=== PATIENT | female | born 1950 | race Caucasian/White ===

== ENCOUNTER 2018-09-03 10:57 | Day surgery (SDC) | payer BC, MEDICARE ==
[2018-09-01 15:47] VITALS: BMI 28.0
[~2018-09-03 10:57] MED LIST: ALPRAZolam 0.25 MG TAB PO PRN; ALPRAZolam 0.5 MG TAB PO PRN; ASPIRIN 325 MG TAB PO STA; ATORVASTATIN 80 MG TAB PO STA; NITROGLYCERIN SL TABS 0.4 MG TAB SUBLINGUAL PRN; SODIUM CHLORIDE 0.9% 1,000 ML in EMPTY BAG 1 BAG IV ONE
[2018-09-03] MEDS ORDERED: SODIUM CHLORIDE 0.9% 1,000 ML IV ONE (11:12)
[2018-09-03 11:39] LABS: Glucose,Whole Blood 149 mg/dL (75-99)
[2018-09-03] MEDS ORDERED: ASPIRIN 81 MG ONE (11:42)
[2018-09-03] MEDS ORDERED: ALPRAZolam 0.25 MG TAB PO ONE (11:52)
[2018-09-03 11:55] VITALS: RESP 16
[2018-09-03] MEDS ORDERED: MIDAZOLAM (PF) 2 MG/2 ML VIAL IV ONE (13:07)
[2018-09-03] MEDS ORDERED: fentaNYL (PF) 50 MCG/ML 2 ML AMP IV ONE (13:07)
[2018-09-03] MEDS ORDERED: LIDOCAINE 1% INJ 10MG/ML (20 ML MDV) SQ ONE (13:09)
[2018-09-03] MEDS ORDERED: IOPAMIDOL-370 100ML BTL INJ ONE (13:18)
[2018-09-03] MEDS ORDERED: RX INFO: IV CONTRAST WAS GIVEN 1 EACH MISC MISCELLANE PRN (13:23)
[2018-09-03] MEDS ORDERED: SODIUM CHLORIDE 0.9% 1,000 ML IV SCH (13:30)
[2018-09-03] MEDS ORDERED: ATROPINE SULFATE 0.1 MG/ML 10ML SYRINGE ONE (13:33)
--- NOTE | 2018-09-03 14:33 | CC ---
CARDIAC CATHETERIZATION REPORT DATE OF SERVICE: 09/03/2018 PERFORMING PHYSICIAN: Jasson Nguyen MD, Twisting Operator. PROCEDURE PERFORMED: 1. Selective right and left coronary angiogram. 2. Left heart catheterization. INDICATION: This is a pleasant 67-year-old female patient with diabetes, hypertension, and dyslipidemia, was experiencing symptoms of shortness of breath with exertion, concerning for angina. She was seen and treated by her digital marketing intern, Dr. Mason, who ruled out any lung etiology for her symptoms. APPROACH: Right common femoral artery. COMPLICATION: None. LEVEL OF SEDATION: Moderate with sedation length of 13 minutes. PROCEDURE DESCRIPTION: After obtaining an informed consent, the patient was brought to the laborer wrecking and salvaging. The right common femoral artery was cannulated using micropuncture technique. Then I placed a 5-Czech sheath in the right common femoral artery. After that, I did selective right and left coronary angiogram using JR4 and JL4 catheter. Left heart catheterization was performed using 5-Czech pigtail catheter. The procedure was completed without complication. SELECTIVE CORONARY ANGIOGRAM: 1. The RCA is a medium caliber vessel. It is a nondominant vessel and appeared to be angiographically normal. 2. Left main is angiographically normal, it bifurcates into left circumflex and left anterior descending artery. 3. The circumflex is a large caliber vessel, it is a dominant vessel. The left circumflex appeared to be angiographically normal. 4. LAD, the LAD is a large caliber vessel, seems to be angiographically normal. HEMODYNAMICS: The left ventricular end-diastolic pressure was about 10 mmHg and without any gradient across the aortic valve. CONCLUSION: Normal coronary angiogram. POSTPROCEDURE MANAGEMENT: 1. Medical treatment. 2. Follow up with the patient. MMODL / IJN: [id number] /
[2018-09-03 17:38] VITALS: TEMP 98.2
[2018-09-03 18:53] VITALS: PULSE 70
[2018-09-03 19:20] VITALS: BP 110/72
[2018-09-03] MEDS ORDERED: IBUPROFEN 600 MG TAB PO STA (19:41)
== END 2018-09-03 20:59 | disposition home or self-care (01) ==
LOC: CATHCVL 10:57 → 1SOBS 13:20 → CATHCVL 20:59
PROVIDERS: ATTEND Internal Medicine Interventional Cardiology
DX: I20.0 Unstable angina (principal); R06.02 Shortness of breath; E78.5 Hyperlipidemia, unspecified; E11.9 Type 2 diabetes mellitus without complications; I10 Essential (primary) hypertension; Z72.0 Tobacco use; Z82.49 Family history of ischemic heart disease and other diseases of the circulatory system; Z79.890 Hormone replacement therapy; Z79.899 Other long term (current) drug therapy; Z79.52 Long term (current) use of systemic steroids; Z79.84 Long term (current) use of oral hypoglycemic drugs
CPT/HCPCS: 93458; C1894 ×2; C1769 ×2; J2001; J3010; Q9967; J2250

== ENCOUNTER 2018-12-12 11:57 | Observation (INO) | payer MEDICARE ==
[2018-12-12] MEDS ORDERED: SODIUM CHLORIDE 0.9% 1,000 ML IV STA (12:24)
[2018-12-12] MEDS ORDERED: PANTOPRAZOLE 40 MG/10 ML VIAL IVP STA (12:24)
[2018-12-12] MEDS ORDERED: ONDANSETRON 4 MG/2 ML VIAL IVP STA (12:24)
[2018-12-12] MEDS ORDERED: DICYCLOMINE 10 MG/ML 2 ML AMP IM STA (12:25)
--- NOTE | 2018-12-12 12:29 | ED ---
General Adult HPI - General Chief complaint: GI Bleed Stated complaint: GI bleed Time Seen by Provider: 12/12/18 12:06 Source: patient, family, RN notes reviewed Mode of arrival: ambulatory Limitations: no limitations - History of Present Illness Initial comments: Patient is a pleasant 68-year-old female presenting to the emergency Department with complaints of rectal bleeding. Onset of symptoms was 6 or 7 months ago. Patient did have a scope done around 6 months ago. Patient states scope was somewhat limited and has not had repeat scope since that time. Patient is continuing to have bloody stools up to 5-10 times daily, small amounts. Patient is starting to feel generally weak. Patient has had some nausea the past couple days with dry heaves and may have vomited one time without blood. Patient is having some mild discomfort of her lower abdomen and states that may have been from pushing with bowel movements. No known hemorrhoids - Related Data Home Medications Medication Instructions Recorded Confirmed Ferrous Sulfate [Iron] 65 mg PO DAILY 09/02/18 12/12/18 Levothyroxine Sodium [Levoxyl] 75 mcg PO DAILY 09/02/18 12/12/18 Metoprolol Tartrate 25 mg PO BID 09/02/18 12/12/18 Omeprazole 20 mg PO DAILY 09/02/18 12/12/18 Simvastatin 40 mg PO HS 09/02/18 12/12/18 Fluticasone Nasal [place] [Flonase 1 spray EA NOSTRIL DAILY 09/03/18 12/12/18 Nasal [place]] Glimepiride [Amaryl] 1 mg PO DAILY 12/12/18 12/12/18 Lisinopril [Zestril] 2.5 mg PO DAILY 12/12/18 12/12/18 Mesalamine [Lialda] 4.8 gm PO DAILY 12/12/18 12/12/18 Multivitamins, Thera [Multivitamin 1 tab PO DAILY 12/12/18 12/12/18 (formulary)] Allergies Allergy/AdvReac Type Severity Reaction Status Date / Time dextromethorphan Allergy Unknown Verified 12/12/18 13:10 [From NyQuil] doxylamine [From NyQuil] Allergy Unknown Verified 12/12/18 13:10 pseudoephedrine [From NyQuil] Allergy Unknown Verified 12/12/18 13:10 acetaminophen [From NyQuil] AdvReac See Comment Verified 12/12/18 13:10 Review of Systems ROS Statement: Those systems with pertinent positive or pertinent negative responses have been documented in the HPI. ROS Other: All systems not noted in ROS Statement are negative. Constitutional: Denies: fever Eyes: Denies: eye pain ENT: Denies: ear pain Respiratory: Denies: cough Cardiovascular: Denies: chest pain Endocrine: Reports: fatigue Gastrointestinal: Reports: abdominal pain, nausea, vomiting, hematochezia Genitourinary: Denies: dysuria Musculoskeletal: Denies: back pain Skin: Denies: rash Neurological: Denies: confusion Past Medical History Past Medical History: Diabetes Mellitus, Osteoarthritis (OA) Additional Past Medical History / Comment(s): SOB recently. History of Any Multi-Drug Resistant Organisms: None Reported Past Surgical History: Heart Catheterization, Hysterectomy Additional Past Surgical History / Comment(s): Right thyroidectomy. Past Anesthesia/Blood Transfusion Reactions: No Reported Reaction Smoking Status: Never smoker Past Alcohol Use History: Occasional Past Drug Use History: None Reported - Past Family History Mother Additional Family Medical History / Comment(s): Brain aneurysym. Father Family Medical History: Cancer Brother(s) Family Medical History: Cancer Sister(s) Family Medical History: Cancer General Exam Limitations: no limitations General appearance: alert, in no apparent distress Head exam: Present: atraumatic Eye exam: Present: normal appearance, PERRL ENT exam: Present: normal oropharynx Neck exam: Present: normal inspection Respiratory exam: Present: normal lung sounds bilaterally Cardiovascular Exam: Present: regular rate, normal rhythm GI/Abdominal exam: Present: soft, tenderness (Mild tenderness lower abdomen). Absent: distended, guarding, rebound, rigid Rectal exam: Present: normal inspection. Absent: bloody stool, hemorrhoids Extremities exam: Present: normal inspection Neurological exam: Present: alert. Absent: motor sensory deficit Psychiatric exam: Present: normal affect, normal mood Skin exam: Present: normal color Course Vital Signs 12/12/18 12/12/18 12/12/18 11:59 12:45 13:00 Temperature 97.9 F Pulse Rate 77 79 75 Respiratory 16 18 18 Rate Blood Pressure 84/52 88/61 107/53 O2 Sat by Pulse 96 96 96 Oximetry 12/12/18 13:30 Temperature Pulse Rate 70 Respiratory 18 Rate Blood Pressure 97/59 O2 Sat by Pulse 99 Oximetry Medical Decision Making - Medical Decision Making Patient reevaluated and resting comfortably in bed. Patient and family updated on results and plan. Case was discussed in detail with Dr. cornejo, covering for Dr. Parish, who admits for Dr. Caro and he will admit. GI will be placed on consult. - Lab Data Result diagrams: 12/12/18 12:39 12/12/18 12:29 Lab Results 12/12/18 12/12/18 12/12/18 Range/Units 12:29 12:29 12:39 WBC 10.6 (3.8-10.6) k/uL RBC 3.78 L (3.80-5.40) m/uL Hgb 11.0 L (11.4-16.0) gm/dL Hct 33.1 L (34.0-46.0) % MCV 87.6 (80.0-100.0) fL MCH 29.0 (25.0-35.0) pg MCHC 33.1 (31.0-37.0) g/dL RDW 13.6 (11.5-15.5) % Plt Count 467 H (150-450) k/uL Neutrophils % 70 % Lymphocytes % 16 % Monocytes % 6 % Eosinophils % 6 % Basophils % 0 % Neutrophils # 7.4 (1.3-7.7) k/uL Lymphocytes # 1.7 (1.0-4.8) k/uL Monocytes # 0.6 (0-1.0) k/uL Eosinophils # 0.6 (0-0.7) k/uL Basophils # 0.0 (0-0.2) k/uL PT 11.6 (9.0-12.0) sec INR 1.1 (<1.2) APTT 29.9 (22.0-30.0) sec Sodium 136 L (137-145) mmol/L Potassium 3.8 (3.5-5.1) mmol/L Chloride 102 (98-107) mmol/L Carbon Dioxide 21 L (22-30) mmol/L Anion Gap 13 mmol/L BUN 14 (7-17) mg/dL Creatinine 1.03 (0.52-1.04) mg/dL Est GFR (CKD-EPI)AfAm 64 (>60 ml/min/1.73 sqM) Est GFR (CKD-EPI)NonAf 56 (>60 ml/min/1.73 sqM) Glucose 118 H (74-99) mg/dL Calcium 9.2 (8.4-10.2) mg/dL Total Bilirubin 0.4 (0.2-1.3) mg/dL AST 19 (14-36) U/L ALT 20 (9-52) U/L Alkaline Phosphatase 48 (38-126) U/L Total Protein 7.2 (6.3-8.2) g/dL Albumin 3.6 (3.5-5.0) g/dL Stool Occult Blood (Negative) 12/12/18 Range/Units 12:39 WBC (3.8-10.6) k/uL RBC (3.80-5.40) m/uL Hgb (11.4-16.0) gm/dL Hct (34.0-46.0) % MCV (80.0-100.0) fL MCH (25.0-35.0) pg MCHC (31.0-37.0) g/dL RDW (11.5-15.5) % Plt Count (150-450) k/uL Neutrophils % % Lymphocytes % % Monocytes % % Eosinophils % % Basophils % % Neutrophils # (1.3-7.7) k/uL Lymphocytes # (1.0-4.8) k/uL Monocytes # (0-1.0) k/uL Eosinophils # (0-0.7) k/uL Basophils # (0-0.2) k/uL PT (9.0-12.0) sec INR (<1.2) APTT (22.0-30.0) sec Sodium (137-145) mmol/L Potassium (3.5-5.1) mmol/L Chloride (98-107) mmol/L Carbon Dioxide (22-30) mmol/L Anion Gap mmol/L BUN (7-17) mg/dL Creatinine (0.52-1.04) mg/dL Est GFR (CKD-EPI)AfAm (>60 ml/min/1.73 sqM) Est GFR (CKD-EPI)NonAf (>60 ml/min/1.73 sqM) Glucose (74-99) mg/dL Calcium (8.4-10.2) mg/dL Total Bilirubin (0.2-1.3) mg/dL AST (14-36) U/L ALT (9-52) U/L Alkaline Phosphatase (38-126) U/L Total Protein (6.3-8.2) g/dL Albumin (3.5-5.0) g/dL Stool Occult Blood Positive H (Negative) - Radiology Data Radiology results: image reviewed (Computed tomography scan of the abdomen and pelvis does show thickening of the colon.) Disposition Clinical Impression: Lower gastrointestinal hemorrhage Disposition: ADMITTED IP TO THIS HOSP Is patient prescribed a controlled substance at d/c from ED?: No Referrals: Yenifer Acosta MD [Primary Care Provider] - 1-2 days Decision Time: 14:26
[2018-12-12] MEDS ORDERED: SODIUM CHLORIDE 0.9% 500 ML 500 ML IV STA ×2 (12:48→14:25)
[2018-12-12 12:50] LABS: Basophils % (A) 0 %; Eosinophils # (A) 0.6 k/uL (0-0.7); Eosinophils % (A) 6 %; HCT 33.1 % (34.0-46.0); Lymphocytes # (A) 1.7 k/uL (1.0-4.8); Lymphocytes % (A) 16 %; MCHC 33.1 g/dL (31.0-37.0); MCV 87.6 fL (80.0-100.0); Mean Platelet Volume 6.8; Monocytes # (A) 0.6 k/uL (0-1.0); Monocytes % (A) 6 %; Neutrophils # (A) 7.4 k/uL (1.3-7.7); Neutrophils % (A) 70 %; Platelet Count 467 k/uL (150-450); RBC 3.78 m/uL (3.80-5.40); RDW 13.6 % (11.5-15.5); WBC 10.6 k/uL (3.8-10.6)
[2018-12-12 13:00] LABS: Albumin 3.6 g/dL (3.5-5.0); Calcium 9.2 mg/dL (8.4-10.2); INR 1.1 (<1.2); Partial Thromboplastin Time 29.9 sec (22.0-30.0); Potassium 3.8 mmol/L (3.5-5.1); Prothrombin Time 11.6 sec (9.0-12.0); Total Bilirubin 0.4 mg/dL (0.2-1.3); Total Protein 7.2 g/dL (6.3-8.2)
--- NOTE | 2018-12-12 14:03 | CT ---
EXAMINATION TYPE: CT abdomen pelvis w con DATE OF EXAM: 12/12/2018 REFERENCE: None. HISTORY: pain HISTORY: GI Bleed CT DLP: 642.1 mGy Automated exposure control for dose reduction was used. TECHNIQUE: Helical acquisition through the abdomen and pelvis was obtained following the oral ingesti on of without Oral Contrast and following intravenous administration of 100 ml mL of Isovue 300. The data was reformatted in axial, coronal and sagittal projections. FINDINGS: There is mild atelectatic change at the lung bases. There is no pleural or pericardial flu id. The heart is not enlarged. Within the abdomen, there is a partial eventration of the right hemidiaphragm. There is decreased att enuation of the liver, likely reflecting fatty infiltration. The gallbladder is been removed. The spl een is unremarkable. Both adrenal glands are normal. Both kidneys demonstrate function and appear morphologically normal. The pancreas is unremarkable. There is mild atheromatous calcification of the visualized arterial tree. There is no significant ret roperitoneal, iliac or inguinal adenopathy. The bladder wall appears mildly thickened but the bladder is not distended. The uterus and ovaries ar e not visualized. There is mucosal thickening involving the sigmoid colon: As well as the descending, transverse and as cending colons. The appendix is not visualized with certainty. Small bowel loops are normal. No free air and no free fluid is seen. There is a degenerative grade 1 spondylolisthesis of L4 on L5. There is disc space loss and hypertrop hic spondylosis within the spine as well as facet arthropathy. IMPRESSION: 1. DIFFUSE THICKENING OF THE COLON SUGGESTIVE OF PANCREATITIS. PLEASE CORRELATE CLINICALLY. 2. PROBABLE FATTY INFILTRATION OF THE LIVER. 3. BLADDER WALL THICKENING OF QUESTIONABLE SIGNIFICANCE IN LIGHT OF LACK OF DISTENTION. 4. DEGENERATIVE CHANGES WITHIN THE SPINE.
[2018-12-12] MEDS ORDERED: NALOXONE 0.4 MG/ML 1 ML VIAL IV PRN (14:26)
[2018-12-12] MEDS: SODIUM CHLORIDE 0.9% 1,000 ML IV SCH ×2 (14:50→20:25)
[2018-12-12 16:23] VITALS: BMI 23.9
[2018-12-12 16:37] LABS: Glucose,Whole Blood 65 mg/dL (75-99)
[2018-12-12] MEDS ORDERED: MORPHINE SULFATE 2 MG/ML SYRINGE IV PRN (16:59)
[2018-12-12] MEDS ORDERED: ACETAMINOPHEN TAB 325 MG TAB PO PRN (16:59)
[2018-12-12] MEDS ORDERED: MELATONIN 3 MG TABLET PO PRN (16:59)
--- NOTE | 2018-12-12 17:06 | P.HPIM ---
History of Present Illness H&P Date: 12/12/18 Chief Complaint: bright red blood per rectum Patient is a 68-year-old female past medical history diabetes, hypertension, dyslipidemia, and hypothyroidism secondary to thyroidectomy for hyperthyroidism who presented to the emergency department for bright red blood p er rectum. Patient had initially stated that she is happy as since April 2018. She is seen Dr. Santana and states he attempted colonoscopy but found a blockage and is unable to completed in May. She initially felt that she had not received a diagnosis from him. However she is seen him in the office on several other visits. On review of her medications she is on mesalamine which she states Dr. Santana started. I asked her she had been diagnosed with ulcerative colitis or Crohn's disease. She states he has mentioned those but felt as though she had not been given a formal diagnosis. In the ER today she underwent an extensive evaluation. CT of abdomen and pelvis demonstrated dif fuse colonic wall thickening. She was found have a positive fecal occult blood. Hemoglobin was slightly low at 11. She received a dose of Bentyl, Zofran, and Protonix in the emergency department. There is concern for GI bleed and she was subsequently admitted. However, I suspect exacerbation of inflammatory bowel disease. Patient reports that since April of this year she has been having bright red blood per rectum. She states that she is going to the bathroom more than 10 times per day and up to 25 times. She sometimes is having tenesmus. She reports that sometimes she goes to the bathroom and it is only as small amount of blood. She is not having any dark tarry looking stools. She reports copious amounts of mucus in her stools. She also reports belly pain that is sharp and stabbing in nature. She describes this is chronic and it is across her right and left lower quadrant without radiation. She reports that she has been having some vomiting and dry heaves. She states that she has been vomiting approximately once weekly and having dry heaves twice weekly. She reports decreased appetite. Over the last 8 months she has lost approximately 34 pounds she was 165 and is now down to 131. She has not noted any food triggers. She reports generalized weakness and fatigue. She also reports that she's been following with . She denies any bloating. She does report a history of colon polyps. She denies any family history of Crohn's disease or ulcerative colitis. She denies any fevers, chills, she does have a chronic dry cough, no dysuria. Review of Systems Pertinent positives and negatives as discussed in HPI, a complete review of systems was performed and all other systems are negative. Past Medical History Past Medical History: Diabetes Mellitus, Osteoarthritis (OA) Additional Past Medical History / Comment(s): Hypertension, dyslipidemia, hypothyroidism, colon polyps History of Any Multi-Drug Resistant Organisms: None Reported Past Surgical History: Heart Catheterization, Hysterectomy Additional Past Surgical History / Comment(s): Right thyroidectomy. Colonoscopy Past Anesthesia/Blood Transfusion Reactions: No Reported Reaction Past Psychological History: No Psychological Hx Reported Smoking Status: Former smoker Past Alcohol Use History: Occasional Additional Past Alcohol Use History / Comment(s): Quit smoking 20 yrs ago. Past Drug Use History: None Reported Additional History: Lives alone, retired, is supposed to use a cane but does not - Past Family History Mother Additional Family Medical History / Comment(s): Brain aneurysym. Denies any family history of colon cancer, Crohn's disease, ulcerative colitis. Father Family Medical History: Cancer Brother(s) Family Medical History: Cancer Sister(s) Family Medical History: Cancer Medications and Allergies Home Medications Medication Instructions Recorded Confirmed Type Ferrous Sulfate [Iron] 65 mg PO DAILY 09/02/18 12/12/18 History Levothyroxine Sodium [Levoxyl] 75 mcg PO DAILY 09/02/18 12/12/18 History Metoprolol Tartrate 25 mg PO BID 09/02/18 12/12/18 History Omeprazole 20 mg PO DAILY 09/02/18 12/12/18 History Simvastatin 40 mg PO HS 09/02/18 12/12/18 History Fluticasone Nasal [place] [Flonase 1 spray EA NOSTRIL DAILY 09/03/18 12/12/18 History Nasal [place]] Glimepiride [Amaryl] 1 mg PO DAILY 12/12/18 12/12/18 History Lisinopril [Zestril] 2.5 mg PO DAILY 12/12/18 12/12/18 History Mesalamine [Lialda] 4.8 gm PO DAILY 12/12/18 12/12/18 History Multivitamins, Thera [Multivitamin 1 tab PO DAILY 12/12/18 12/12/18 History (formulary)] Allergies Allergy/AdvReac Type Severity Reaction Status Date / Time dextromethorphan Allergy Unknown Verified 12/12/18 13:10 [From NyQuil] doxylamine [From NyQuil] Allergy Unknown Verified 12/12/18 13:10 pseudoephedrine [From NyQuil] Allergy Unknown Verified 12/12/18 13:10 Physical Exam Osteopathic Statement: *. No significant issues noted on an osteopathic structural exam other than those noted in the History and Physical/Consult. Vitals: Vital Signs Temp Pulse Pulse Resp BP BP Pulse Ox 12/12/18 16:00 98.2 F 77 16 100/67 98 12/12/18 15:15 97.9 F 76 18 104/65 99 12/12/18 14:54 79 18 91/54 98 12/12/18 14:39 98.2 F 77 16 100/67 99 12/12/18 13:30 70 18 97/59 99 12/12/18 13:00 75 18 107/53 96 12/12/18 12:45 79 18 88/61 96 12/12/18 11:59 97.9 F 77 16 84/52 96 Intake and Output 12/12/18 12/12/18 12/12/18 06:59 14:59 22:59 Other: Weight 59.421 kg Results CBC & Chem 7: 12/12/18 12:39 12/12/18 12:29 Labs: Abnormal Lab Results - Last 24 Hours (Table) 12/12/18 12/12/18 12/12/18 Range/Units 12:29 12:39 12:39 RBC 3.78 L (3.80-5.40) m/uL Hgb 11.0 L (11.4-16.0) gm/dL Hct 33.1 L (34.0-46.0) % Plt Count 467 H (150-450) k/uL Sodium 136 L (137-145) mmol/L Carbon Dioxide 21 L (22-30) mmol/L Glucose 118 H (74-99) mg/dL Stool Occult Blood Positive H (Negative) Comments: Laboratory Tests 12/12/18 12:39 Stool Occult Blood Positive H CT scan - abdomen: report reviewed CT scan - chest: report reviewed Thrombosis Risk Factor Assmnt - DVT/VTE Prophylaxis DVT/VTE Prophylaxis: Low risk, early ambulation encouraged Assessment and Plan Assessment: Bright Red Blood per rectum in association with abdominal pain and tenesmus and diffuse colonic thickening - highly suspecious for inflammatory bowel disease flair, patient denies history but is on mesalamine - will start solumedrol and rocephin/flagyl - consult GI - IVF - Clear liquid diet - pain control, antiemetics Acute blood loss anemia - trend CBC once tonight and in AM - check iron, B12, and folic acid levels DM 2 with hypoglycemia - hold glimepiride - SSI - follow BS - check A1C HTN, hypotensive on arrival -decrease metoprolol to 12.5 mg twice daily and add parameters, continue with lisinopril -Follow blood pressures Dyslipidemia -Statin therapy Hypothyroidism -Levothyroxine The patient is admitted with an anticipated greater than 2 midnight stay for evaluation of bright red blood per rectum. Surrogate decision-maker: Daughter- luis CODE STATUS:full, does not want prolonged mechanical ventilation if no hope of recovery DVT prophylaxis: SCDs Discussed with: Patient, nursing Anticipated discharge date: 3-[address]: home A total of 70 minutes was spent on the care of this complex patient more than 50% of the time was spent in counseling and care coordination.
[2018-12-12] MEDS: INSULIN ASPART (NovoLOG) 100 UNIT/ML VIAL SQ SCH ×2 (17:26→20:25)
[2018-12-12] MEDS: methylPREDNISolone SOD SUCCI 125 MG/2 ML VIAL IV SCH (17:33)
[2018-12-12] MEDS: HYDROcodone/APAP 5-325MG 1 EACH TAB PO PRN (18:53)
[2018-12-12 20:13] LABS: Glucose,Whole Blood 206 mg/dL (75-99)
[2018-12-12] MEDS: ATORVASTATIN 20 MG TAB PO SCH (20:25)
[2018-12-12] MEDS: metroNIDAZOLE 500 MG TAB PO SCH (20:25)
[2018-12-12] MEDS: METOPROLOL TARTRATE 12.5 MG TAB PO SCH (20:25)
[2018-12-12 21:07] LABS: Basophils % (A) 0 %; Eosinophils # (A) 0.1 k/uL (0-0.7); Eosinophils % (A) 2 %; HCT 30.8 % (34.0-46.0); HGB 9.9 gm/dL (11.4-16.0); Lymphocytes # (A) 0.7 k/uL (1.0-4.8); Lymphocytes % (A) 8 %; MCH 29.5 pg (25.0-35.0); MCHC 32.1 g/dL (31.0-37.0); MCV 91.8 fL (80.0-100.0); Mean Platelet Volume 7.7; Monocytes # (A) 0.2 k/uL (0-1.0); Monocytes % (A) 2 %; Neutrophils % (A) 87 %; Platelet Count 363 k/uL (150-450); RBC 3.36 m/uL (3.80-5.40); RDW 13.7 % (11.5-15.5)
[2018-12-13] MEDS: methylPREDNISolone SOD SUCCI 125 MG/2 ML VIAL IV SCH ×2 (00:15→06:02)
[2018-12-13] MEDS: LEVOTHYROXINE 75 MCG TAB PO SCH (06:01)
[2018-12-13] MEDS: HYDROcodone/APAP 5-325MG 1 EACH TAB PO PRN ×2 (06:08→19:11)
[2018-12-13] MEDS: SODIUM CHLORIDE 0.9% 1,000 ML IV SCH ×3 (06:09→21:13)
[2018-12-13 07:08] LABS: Glucose,Whole Blood 173 mg/dL (75-99)
[2018-12-13 07:12] LABS: Basophils % (A) 0 %; Eosinophils % (A) 0 %; Hypochromasia Slight; Lymphocytes # (A) 0.7 k/uL (1.0-4.8); Lymphocytes % (A) 12 %; MCH 28.5 pg (25.0-35.0); MCHC 32.2 g/dL (31.0-37.0); MCV 88.6 fL (80.0-100.0); Mean Platelet Volume 6.8; Monocytes # (A) 0.1 k/uL (0-1.0); Monocytes % (A) 1 %; Neutrophils # (A) 4.9 k/uL (1.3-7.7); Neutrophils % (A) 86 %; Platelet Count 341 k/uL (150-450); WBC 5.6 k/uL (3.8-10.6)
[2018-12-13 07:24] LABS: African American GFR (CKD) >90 (>60 ml/min/1.73 sqM); Anion Gap 10 mmol/L; Blood Urea Nitrogen 7 mg/dL (7-17); Calcium 8.6 mg/dL (8.4-10.2); Carbon Dioxide 22 mmol/L (22-30); Chloride 107 mmol/L (98-107); Glucose 184 mg/dL (74-99); Potassium 4.3 mmol/L (3.5-5.1); Sodium 139 mmol/L (137-145)
[2018-12-13] MEDS: INSULIN ASPART (NovoLOG) 100 UNIT/ML VIAL SQ SCH ×4 (07:27→21:08)
[2018-12-13] MEDS: PANTOPRAZOLE 40 MG/10 ML VIAL IV SCH (07:28)
[2018-12-13] MEDS: BALSALAZIDE DISODIUM 750 MG CAPSULE PO SCH ×3 (07:29→21:07)
[2018-12-13] MEDS: LISINOPRIL 2.5 MG TAB PO SCH (07:29)
[2018-12-13] MEDS: FERROUS SULFATE 325 MG TAB PO SCH (07:29)
[2018-12-13] MEDS: METOPROLOL TARTRATE 12.5 MG TAB PO SCH ×2 (07:29→21:08)
[2018-12-13] MEDS: metroNIDAZOLE 500 MG TAB PO SCH ×2 (07:29→21:08)
[2018-12-13] MEDS ORDERED: NON-FORMULARY DRUG (Omeprazole [Omeprazole] 20 MG) PO SCH (09:00)
--- NOTE | 2018-12-13 11:56 | CONS ---
CONSULTATION DATE OF DICTATION: December 13, 2018. REQUESTING PHYSICIAN: Dr. Bud Acosta. REASON FOR CONSULTATION: Exacerbation of ulcerative colitis. The patient is a 68-year-old pleasant white female who was diagnosed with a left sided ulcerative colitis in May of this year by Dr. Santana. The patient presented with rectal bleeding at that time. Subsequently, she was treated with a tapering dose of prednisone and follow up with Dr. Santana in the office and was doing well. She was also maintained on oral mesalamine and 4 tablets daily. For the last 2 weeks, she started having bloody diarrhea, bowel movements anywhere from 10-15 a day associated with lower abdominal cramping pain. Symptoms progressively got worse. Came into the emergency room yesterday and subsequently admitted to the hospital for further evaluation. She was started on Solu-Medrol 60 mg q.6 hours. This morning, feeling much better. She had 2 bowel movement this morning with no blood. She reports no nausea, vomiting. No fever, chills, or night sweats. Colonoscopy done at [facility] by Dr. Santana in May of 2018 showed left- sided ulcerative colitis. The colonoscopy could not be completed because of extremely poor prep in the transverse colon. However, there was no evidence of colitis involving the transverse colon at that time. PAST MEDICAL HISTORY: Significant for ulcerative colitis diagnosed May of 2018, history of hypertension, hyperlipidemia, hypothyroidism, diabetes mellitus, degenerative joint disease. PAST SURGICAL HISTORY: Thyroidectomy, hysterectomy, recent colonoscopy as mentioned above. MEDICATIONS: At home include: , Zestril, Amylase, Flonase, simvastatin, omeprazole, metoprolol, iron, levothyroxine, multivitamin. ALLERGIES: NYQUIL. SOCIAL HISTORY: No smoking. No alcohol use. FAMILY HISTORY: Mother has brain aneurysm. Father had some kind of cancer. REVIEW OF SYSTEMS: Cardiopulmonary: No chest pain, shortness of breath. Genitourinary: No dysuria or hematuria. Musculoskeletal unremarkable. Skin unremarkable. Endocrine unremarkable. Psychiatric unremarkable. Neurology unremarkable. ENT/vision unremarkable. Constitutional: No recent weight loss. No fever, chills, night sweats. PHYSICAL EXAMINATION: Appears comfortable in no apparent distress. Vital signs stable. Blood pressure 101/67, pulse rate 77, temperature 98.2. HEENT examination unremarkable. Conjunctivae pink. Sclerae anicteric. Oral cavity no lesions. NECK: No JVD or lymph node enlargement. CHEST: Clear to auscultation. HEART: Regular rate and rhythm. ABDOMEN: Soft. Bowel sounds are positive. No organomegaly. Mild tenderness in the lower abdomen. EXTREMITIES: No pedal edema. SKIN no rashes. NEUROLOGIC: Alert and oriented x3. No focal deficits. LABS: WBC 5.6, hemoglobin 10, platelets normal. Basic metabolic panel is within normal limits. Stool occult blood was positive. Serum ALT/AST, T-bilirubin and alkaline phosphatase are normal. IMPRESSION: Exacerbation of ulcerative colitis that was diagnosed in May of [address] Santana. The patient maintained on the 4 tablets daily on an outpatient basis. She finished a course of prednisone tapering doses from August to September of this year and did well. Admitted to hospital with worsening diarrhea with blood and mucus in the stools for the last 2 weeks duration suggestive of exacerbation of ulcerative colitis. Presently on IV Solu-Medrol 60 mg q.8 hours and symptoms are significantly improved. RECOMMENDATIONS: 1. Change IV Solu-Medrol to 20 mg q.8 hours and if she is better, it can be switched to oral prednisone 40 mg daily that needs to be tapered by 5 mg every week on outpatient basis. 2. Continue with 4 tablets daily, in the hospital has been substituted with . 3. Advance diet as tolerated. 4. If symptoms improve, she can be discharged home tomorrow with outpatient followup with Dr. Santana in 2 weeks. Thank you for this consultation. MMODL / IJN: [id number] /
[2018-12-13 12:03] LABS: Glucose,Whole Blood 222 mg/dL (75-99)
[2018-12-13] MEDS: MULTIVITAMINS, THERA 1 EACH TAB PO SCH (12:05)
[2018-12-13] MEDS: FLUTICASONE 50MCG/SPRAY NASAL 16GM EA NOSTRIL SCH (12:05)
--- NOTE | 2018-12-13 15:41 | P.PN ---
Subjective Progress Note Date: 12/13/18 Patient reports that she is feeling better her diarrhea is getting better and there is no further bleeding per rectum. She stated that her family reminded her that she was told that she had ulcerative colitis after the colonoscopy done by her marine engineering teacher. Patient stated that her belly pain is slightly better. Patient is yet to be seen by the gastroenterology team. Nurses reported no current issues with the patient. Objective - Vital Signs Vital signs: Vital Signs Temp 97.7 F 12/13/18 15:00 Pulse 72 12/13/18 15:00 Resp 15 12/13/18 15:00 BP 90/53 12/13/18 15:00 Pulse Ox 99 12/13/18 15:00 Intake & Output 12/12/18 12/13/18 12/13/18 18:59 06:59 18:59 Intake Total 358 500 480 Balance 358 500 480 Weight 59.421 kg 59.421 kg Intake: Oral 358 500 480 Other: # Voids 2 1 # Bowel Movements 2 2 - Constitutional General appearance: Present: cooperative, no acute distress - EENT Eyes: Present: EOMI, normal appearance ENT: Present: hearing grossly normal, NA/AT - Neck Neck: Present: normal ROM. Absent: lymphadenopathy, rigidity - Respiratory Respiratory: bilateral: CTA, negative: rales, rhonchi, wheezing - Cardiovascular Rhythm: regular Heart sounds: normal: S1, S2 Abnormal Heart Sounds: Absent: systolic murmur, diastolic murmur, rub, S3 Gallop, S4 Gallop, click - Gastrointestinal General gastrointestinal: Present: normal bowel sounds, soft. Absent: distended, rigid, tenderness - Neurologic Neurologic: Present: CNII-XII intact. Absent: focal deficits - Psychiatric Psychiatric: Present: A&O x's 3, appropriate affect, intact judgment & insight - Allied health notes Allied health notes reviewed: nursing - Labs CBC & Chem 7: 12/13/18 06:45 12/13/18 06:45 Labs: Abnormal Lab Results - Last 24 Hours (Table) 12/12/18 12/12/18 12/12/18 Range/Units 16:33 20:10 20:18 RBC 3.36 L (3.80-5.40) m/uL Hgb 9.9 L (11.4-16.0) gm/dL Hct 30.8 L (34.0-46.0) % Lymphocytes # 0.7 L (1.0-4.8) k/uL Creatinine (0.52-1.04) mg/dL Glucose (74-99) mg/dL POC Glucose (mg/dL) 65 L 206 H (75-99) mg/dL 12/13/18 12/13/18 12/13/18 Range/Units 06:45 06:45 07:06 RBC 3.50 L (3.80-5.40) m/uL Hgb 10.0 L (11.4-16.0) gm/dL Hct 31.0 L (34.0-46.0) % Lymphocytes # 0.7 L (1.0-4.8) k/uL Creatinine 0.51 L (0.52-1.04) mg/dL Glucose 184 H (74-99) mg/dL POC Glucose (mg/dL) 173 H (75-99) mg/dL 12/13/18 Range/Units 12:00 RBC (3.80-5.40) m/uL Hgb (11.4-16.0) gm/dL Hct (34.0-46.0) % Lymphocytes # (1.0-4.8) k/uL Creatinine (0.52-1.04) mg/dL Glucose (74-99) mg/dL POC Glucose (mg/dL) 222 H (75-99) mg/dL Assessment and Plan (1) Lower gastrointestinal hemorrhage Current Visit: Yes Status: Acute Priority: High Code(s): K92.2 - GASTROINTESTINAL HEMORRHAGE, UNSPECIFIED SNOMED Code(s): 95834268 (2) Diabetes mellitus type 2, controlled Current Visit: Yes Status: Chronic Priority: High Code(s): E11.9 - TYPE 2 DIABETES MELLITUS WITHOUT COMPLICATIONS SNOMED Code(s): 44034503 (3) Hypertension, essential, benign Current Visit: Yes Status: Chronic Priority: High Code(s): I10 - ESSENTIAL (PRIMARY) HYPERTENSION SNOMED Code(s): 3224952 (4) Dyslipidemia Current Visit: Yes Status: Chronic Priority: Medium Code(s): E78.5 - HYPERLIPIDEMIA, UNSPECIFIED SNOMED Code(s): 131468225 (5) Hypothyroidism (acquired) Current Visit: Yes Status: Chronic Priority: Medium Code(s): E03.9 - HYPOTHYROIDISM, UNSPECIFIED SNOMED Code(s): 362798030 (6) Ulcerative colitis Current Visit: Yes Status: Acute Priority: High Code(s): K51.90 - ULCERATIVE COLITIS, UNSPECIFIED, WITHOUT COMPLICATIONS SNOMED Code(s): 61349685 Plan: Patient's current medication will be continued including [place] [employer]. She is slowly improving her diarrhea is improving her blood per rectum is almost gone. Hemoglobin will be checked at 6 PM and in the morning also. Gastroenterology was consulted and their input is awaited. Patient home medications for hypertension and hypothyroidism will be continued as it is along with sliding scale coverage for her diabetes. She will be on consistent carbohydrate diet. If patient remains stable in next 24-48 hours she will be discharged home. Time with Patient: Less than 30
[2018-12-13 16:46] LABS: Glucose,Whole Blood 201 mg/dL (75-99)
[2018-12-13] MEDS: methylPREDNISolone SOD SUCCI 40 MG/ML 1 ML VIAL IV SCH ×2 (17:34→23:22)
[2018-12-13 18:51] LABS: HCT 30.3 % (34.0-46.0); HGB 9.7 gm/dL (11.4-16.0); MCH 29.1 pg (25.0-35.0); MCV 91.1 fL (80.0-100.0); Mean Platelet Volume 7.3; Platelet Count 395 k/uL (150-450); RBC 3.33 m/uL (3.80-5.40); RDW 13.9 % (11.5-15.5); WBC 8.4 k/uL (3.8-10.6)
[2018-12-13 21:03] LABS: Glucose,Whole Blood 342 mg/dL (75-99)
[2018-12-13] MEDS: ATORVASTATIN 20 MG TAB PO SCH (21:08)
[2018-12-14] MEDS: HYDROcodone/APAP 5-325MG 1 EACH TAB PO PRN (05:53)
[2018-12-14] MEDS: LEVOTHYROXINE 75 MCG TAB PO SCH (05:53)
[2018-12-14] MEDS: SODIUM CHLORIDE 0.9% 1,000 ML IV SCH ×2 (06:03→14:41)
[2018-12-14 07:05] LABS: HCT 27.1 % (34.0-46.0); HGB 8.9 gm/dL (11.4-16.0); MCH 29.7 pg (25.0-35.0); MCV 89.9 fL (80.0-100.0); Mean Platelet Volume 7.1; Platelet Count 367 k/uL (150-450); RBC 3.01 m/uL (3.80-5.40); RDW 13.6 % (11.5-15.5); WBC 6.2 k/uL (3.8-10.6)
[2018-12-14] MEDS: INSULIN ASPART (NovoLOG) 100 UNIT/ML VIAL SQ SCH ×2 (07:24→12:19)
[2018-12-14] MEDS: METOPROLOL TARTRATE 12.5 MG TAB PO SCH (07:25)
[2018-12-14] MEDS: FLUTICASONE 50MCG/SPRAY NASAL 16GM EA NOSTRIL SCH (07:25)
[2018-12-14] MEDS: LISINOPRIL 2.5 MG TAB PO SCH (07:25)
[2018-12-14] MEDS: PANTOPRAZOLE 40 MG/10 ML VIAL IV SCH (07:25)
[2018-12-14] MEDS: BALSALAZIDE DISODIUM 750 MG CAPSULE PO SCH ×2 (07:25→16:03)
[2018-12-14] MEDS: metroNIDAZOLE 500 MG TAB PO SCH (07:25)
[2018-12-14] MEDS: methylPREDNISolone SOD SUCCI 40 MG/ML 1 ML VIAL IV SCH ×2 (07:25→16:03)
[2018-12-14] MEDS: FERROUS SULFATE 325 MG TAB PO SCH (07:25)
[2018-12-14] MEDS: MULTIVITAMINS, THERA 1 EACH TAB PO SCH (07:25)
[2018-12-14 07:29] LABS: Glucose,Whole Blood 195 mg/dL (75-99)
[2018-12-14 07:42] VITALS: RESP 16
--- NOTE | 2018-12-14 09:24 | P.PN ---
Subjective Progress Note Date: 12/14/18 Principal diagnosis: Exacerbation of ulcerative colitis Hemoglobin 8.9. 3 incontinent nonbloody bowel movements to the night. Abdominal pain improving. Afebrile. Requesting discharge. Objective - Vital Signs Vital signs: Vital Signs Temp 98.0 F 12/14/18 07:41 Pulse 63 12/14/18 07:41 Resp 16 12/14/18 07:41 BP 134/86 12/14/18 07:41 Pulse Ox 98 12/14/18 07:41 Intake & Output 12/13/18 12/14/18 12/14/18 18:59 06:59 18:59 Intake Total 480 1550 Output Total 2 Balance 480 1548 Weight 59.421 kg Intake: Intake, IV Titration 1250 Amount Sodium Chloride 0.9% 1, 1250 000 ml @ 125 mls/hr IV . Q8H AKANKSHA Rx#:[id number] Oral 480 300 Output: Urine/Stool Mix 2 Other: # Voids 1 3 # Bowel Movements 2 3 - Exam General appearance: The patient is alert, oriented, in no acute distress. HET: Head is normocephalic and atraumatic. Pupils are equal and reactive. Orop harynx is clear without lesions. Neck: Supple without lymphadenopathy. Trachea midline. Heart: S1 S2. Regular rate and rhythm. Lungs: No crackles or wheezes are heard. Abdomen: Soft, minimal tenderness to the left lower abdomen, nondistended with bowel sounds. No peritoneal signs. No palpable organomegaly or masses. Extremities: Normal skin color and turgor. No cyanosis, rash, ulceration, cl ubbing, or edema. Radial and pedal pulses are 2/4 bilaterally. Neurological: No focal deficits. Strength and sensation are grossly intact. - Labs CBC & Chem 7: 12/14/18 06:41 12/13/18 06:45 Labs: Abnormal Lab Results - Last 24 Hours (Table) 12/13/18 12/13/18 12/13/18 Range/Units 12:00 16:44 18:39 RBC 3.33 L (3.80-5.40) m/uL Hgb 9.7 L (11.4-16.0) gm/dL Hct 30.3 L (34.0-46.0) % POC Glucose (mg/dL) 222 H 201 H (75-99) mg/dL 12/13/18 12/14/18 12/14/18 Range/Units 20:59 06:41 07:18 RBC 3.01 L (3.80-5.40) m/uL Hgb 8.9 L (11.4-16.0) gm/dL Hct 27.1 L (34.0-46.0) % POC Glucose (mg/dL) 342 H 195 H (75-99) mg/dL Assessment and Plan (1) Exacerbation of ulcerative colitis Current Visit: Yes Status: Acute Code(s): K51.90 - ULCERATIVE COLITIS, UNSPECIFIED, WITHOUT COMPLICATIONS SNOMED Code(s): 451284409 Plan: 1. Agreeable for discharge. Diet as tolerated. Start tomorrow Prednisone 40 mg daily taper down every 7 days by 5 mg. Continue balsalazide 750 mg 3 tablets 3 times a day until discharge continue Lialda 4.8 g daily at home. Outpatient colonoscopy scheduled at [facility] 12/22/2018. Return to office in 3-4 weeks for reevaluation with Dr. Santana. Assessment and plan a care discussed with Dr. Galvez
[2018-12-14 09:56] LABS: Iron Saturation 12.09 (12.00-45.00)
[2018-12-14 11:39] LABS: Glucose,Whole Blood 321 mg/dL (75-99)
[2018-12-14 15:26] VITALS: BP 125/78; PULSE 89; TEMP 97.9
--- NOTE | 2018-12-14 17:21 | P.DS ---
Providers Date of admission: 12/12/18 14:26 Expected date of discharge: 12/14/18 Attending physician: Mirian Schmitt MD Consults: 12/12/18 14:27 Consult Physician Urgent Consulting Provider: Jessica Galvez Consult Reason/Comments: gi hemorrhage Do you want consulting provider notified?: Yes Primary care physician: Yenifer Acosta - Discharge Diagnosis(es) (1) Lower gastrointestinal hemorrhage Current Visit: Yes Status: Acute Priority: High (2) Diabetes mellitus type 2, controlled Current Visit: Yes Status: Chronic Priority: High (3) Hypertension, essential, benign Current Visit: Yes Status: Chronic Priority: High (4) Dyslipidemia Current Visit: Yes Status: Chronic Priority: Medium (5) Hypothyroidism (acquired) Current Visit: Yes Status: Chronic Priority: Medium (6) Ulcerative colitis Current Visit: Yes Status: Acute Priority: High Hospital Course: Patient is a 68-year-old female past medical history diabetes, hypertension, dyslipidemia, and hypothyroidism secondary to thyroidectomy for hyperthyroidism who presented to the emergency department for bright red blood per rectum. Patient had initially LGIB in April 2018. She was seen Dr. Santana and states he attempted colonoscopy but found a blockage and is unable to completed in May. She initially felt that she had not received a diagnosis from him but later reported that she was told that she had ulcerative colitis. On review of her medications she is on mesalamine which she states Dr. Santana started. In the ER today she underwent an extensive evaluation. CT of abdomen and pelvis demonstrated diffuse colonic wall thickening. She was found have a positive fecal occult blood. Hemoglobin was slightly low at 11. She received a dose of Bentyl, Zofran, and Protonix in the emergency department. Th ere is concern for GI bleed and she was subsequently admitted. However exacerbation of inflammatory bowel disease was suspected. Patient denied chest pain, palpitation, fever, chills, worsening abdominal pain and denies rest of the review system. Objective the patient vitals are stable and she is afebrile, lungs are clear to auscultation, heart rhythm regular, soft & bowel sounds positive, nontender and non-distended abdomen. Patient was referred to log grader who recommended that acute treatment of flareup and patient improved with the current management. She did not had any further hematochezia and her loose stool improved. Patient was okayed by GI team Sheela Wray PRODUCE LABORER for discharge with very slow tapering of oral prednisone and prescription were written by her. Patient is clinically doing much better her hemoglobin is stable and she will be discharged home today. Pertinent Studies: Patient has CT abdomen and pelvis done in the emergency room which showed diffuse thickening of the colon suggestive of colitis, fatty infiltration of liver, bladder wall thickening of questionable significance and degenerative changes within the spine. Procedures: None. Patient Condition at Discharge: Fair Plan - Discharge Summary Discharge Rx Participant: No New Discharge Prescriptions: New predniSONE 0 mg PO DIRECTED #123 tab metroNIDAZOLE [Flagyl] 500 mg PO BID 5 Days #10 tab Metoprolol Tartrate [Lopressor] 12.5 mg PO BID 30 Days #60 tab Continue Levothyroxine Sodium [Levoxyl] 75 mcg PO DAILY Simvastatin 40 mg PO HS Omeprazole 20 mg PO DAILY Metoprolol Tartrate 25 mg PO BID Ferrous Sulfate [Iron] 65 mg PO DAILY Fluticasone Nasal [place] [Flonase Nasal [place]] 1 spray EA NOSTRIL DAILY Glimepiride [Amaryl] 1 mg PO DAILY Lisinopril [Zestril] 2.5 mg PO DAILY Mesalamine [Lialda] 4.8 gm PO DAILY Multivitamins, Thera [Multivitamin (formulary)] 1 tab PO DAILY Discharge Medication List Ferrous Sulfate [Iron] 65 mg PO DAILY 09/02/18 [History] Levothyroxine Sodium [Levoxyl] 75 mcg PO DAILY 09/02/18 [History] Metoprolol Tartrate 25 mg PO BID 09/02/18 [History] Omeprazole 20 mg PO DAILY 09/02/18 [History] Simvastatin 40 mg PO HS 09/02/18 [History] Fluticasone Nasal [place] [Flonase Nasal [place]] 1 spray EA NOSTRIL DAILY 09/03/18 [History] Glimepiride [Amaryl] 1 mg PO DAILY 12/12/18 [History] Lisinopril [Zestril] 2.5 mg PO DAILY 12/12/18 [History] Mesalamine [Lialda] 4.8 gm PO DAILY 12/12/18 [History] Multivitamins, Thera [Multivitamin (formulary)] 1 tab PO DAILY 12/12/18 [History] Metoprolol Tartrate [Lopressor] 12.5 mg PO BID 30 Days #60 tab 12/14/18 [Rx] metroNIDAZOLE [Flagyl] 500 mg PO BID 5 Days #10 tab 12/14/18 [Rx] predniSONE 0 mg PO DIRECTED #123 tab 12/14/18 [Rx] Follow up Appointment(s)/Referral(s): Yenifer Acosta MD [Primary Care Provider] - 1-2 days Hussain Santana MD [STAFF PHYSICIAN] - 4 Weeks Patient Instructions/Handouts: Ulcerative Colitis (DC) Activity/Diet/Wound Care/Special Instructions: colonoscopy that has been scheduled for 12/22 has been cancelled. follow up with Dr. Santana in 3-4 weeks, and he will re-schedule you for a colonoscopy. Discharge Disposition: HOME SELF-CARE
[2018-12-15] MEDS ORDERED: PANTOPRAZOLE 40 MG TABLET PO SCH (09:00)
== END 2018-12-14 17:56 | disposition home or self-care (01) ==
LOC: EC 11:57 → 4SSUR 14:26
PROVIDERS: ADMIT Internal Medicine; ATTEND Internal Medicine
DX: K51.511 Left sided colitis with rectal bleeding (principal); I10 Essential (primary) hypertension; E78.5 Hyperlipidemia, unspecified; E89.0 Postprocedural hypothyroidism; M19.90 Unspecified osteoarthritis, unspecified site; R15.9 Full incontinence of feces; E11.649 Type 2 diabetes mellitus with hypoglycemia without coma; I95.9 Hypotension, unspecified; D62 Acute posthemorrhagic anemia; Z86.010 Personal history of colon polyps; Z87.891 Personal history of nicotine dependence; Z79.890 Hormone replacement therapy; Z79.899 Other long term (current) drug therapy; Z79.84 Long term (current) use of oral hypoglycemic drugs; Z88.8 Allergy status to other drugs, medicaments and biological substances; Z82.49 Family history of ischemic heart disease and other diseases of the circulatory system; Z80.9 Family history of malignant neoplasm, unspecified
CPT/HCPCS: 96376 ×2; 96365; 96366 ×2; 96375 ×2; 96361; 99285; 36415; 82747; 80053; 80048; 82607; 82728; 83540; 83550; 85025 ×2; 85027 ×2; 85610; 85730; 82272; 74177; G0378 ×3; J0500; J2920 ×2; J2930 ×2; J2405; J0696 ×2; C9113 ×3; Q9967

== ENCOUNTER → 2019-11-29 | Outpatient (CLI) | payer MEDICARE ==
[2019-11-29 19:07] LABS: Total Volume 24 Hour,Urine 2975 mL
[2019-11-29 21:10] LABS: Total Protein 24 Hour,Urine 910.4 mg/24Hr
== END | disposition home or self-care (01) ==
LOC: LABWHC1 07:27
PROVIDERS: ATTEND Family Medicine
DX: N18.9 Chronic kidney disease, unspecified (principal); E87.1 Hypo-osmolality and hyponatremia
CPT/HCPCS: 81050; 84156

== ENCOUNTER → 2019-12-09 | Outpatient (CLI) | payer MEDICARE ==
--- NOTE | 2019-12-09 15:42 | US ---
EXAMINATION TYPE: US kidneys/renal and bladder DATE OF EXAM: 12/09/2019 COMPARISON: CT CLINICAL HISTORY: I12.9 Hypertensive chronic kidney disease, E87.1. EXAM MEASUREMENTS: Right Kidney: 9.1 x 4.5 x 4.9 cm Left Kidney: 10.1 x 5.3 x 4.4 cm Right Kidney: No hydronephrosis or masses seen Left Kidney: No hydronephrosis or masses seen Bladder: wnl Bilateral Jets seen: Yes There is no evidence for hydronephrosis at this point in time. No nephrolithiasis is seen. No isiah s are identified, cortical medullary differentiation is maintained. The urinary bladder is anechoic. Bilateral ureteral jets are seen. IMPRESSION: Normal renal ultrasound
== END | disposition home or self-care (01) ==
LOC: RADUSWWP 14:56
PROVIDERS: ATTEND Family Medicine
DX: I12.9 Hypertensive chronic kidney disease with stage 1 through stage 4 chronic kidney disease, or unspecified chronic kidney disease (principal); N18.9 Chronic kidney disease, unspecified; E87.1 Hypo-osmolality and hyponatremia
CPT/HCPCS: 76770

== ENCOUNTER 2020-08-15 17:12 | Inpatient (IN) | payer MEDICARE ==
--- NOTE | 2020-08-15 19:28 | ED ---
SOB HPI - General Chief Complaint: Shortness of Breath Stated Complaint: SOB/low oxygen Time Seen by Provider: 08/15/20 19:12 Source: patient Mode of arrival: wheelchair Limitations: no limitations - History of Present Illness Initial Comments: This is a 6-year-old female to history of diabetes, hypertension, hyperlipidemia, Crohn's disease who presents emergent department for worsening shortness of breath and cough. The patient was diagnosed with Covid on August 04. She states that that is when her symptoms started as well. She states that she's progressively worsened. She states that she is feeling short of breath at rest now. She followed up with her primary doctor today who advised her to get a pulse oximetry and if the pulse oximetry was low that she needs to report emergency department for evaluation. She states it was in the 80s at home that she can emergency department. She denies any chest pain. She admits to fevers, chills, cough, shortness of breath, myalgias, and diarrhea. She denies any other acute complaints. - Related Data Home Medications Medication Instructions Recorded Confirmed Ferrous Sulfate [Iron] 65 mg PO DAILY 09/02/18 12/12/18 Levothyroxine Sodium [Levoxyl] 75 mcg PO DAILY 09/02/18 12/12/18 Metoprolol Tartrate 25 mg PO BID 09/02/18 12/12/18 Omeprazole 20 mg PO DAILY 09/02/18 12/12/18 Simvastatin 40 mg PO HS 09/02/18 12/12/18 Fluticasone Nasal [place] [Flonase 1 spray EA NOSTRIL DAILY 09/03/18 12/12/18 Nasal [place]] Glimepiride [Amaryl] 1 mg PO DAILY 12/12/18 12/12/18 Mesalamine [Lialda] 4.8 gm PO DAILY 12/12/18 12/12/18 Multivitamins, Thera [Multivitamin 1 tab PO DAILY 12/12/18 12/12/18 (formulary)] lisinopriL [Zestril] 2.5 mg PO DAILY 12/12/18 12/12/18 Previous Rx's Medication Instructions Recorded Metoprolol Tartrate [Lopressor] 12.5 mg PO BID 30 Days #60 tab 12/14/18 metroNIDAZOLE [Flagyl] 500 mg PO BID 5 Days #10 tab 12/14/18 predniSONE 0 mg PO DIRECTED #123 tab 12/14/18 Allergies Allergy/AdvReac Type Severity Reaction Status Date / Time dextromethorphan Allergy Unknown Verified 08/15/20 19:04 [From NyQuil] doxylamine [From NyQuil] Allergy Unknown Verified 08/15/20 19:04 pseudoephedrine [From NyQuil] Allergy Unknown Verified 08/15/20 19:04 Review of Systems ROS Statement: Those systems with pertinent positive or pertinent negative responses have been documented in the HPI. ROS Other: All systems not noted in ROS Statement are negative. Past Medical History Past Medical History: COPD, Diabetes Mellitus, Osteoarthritis (OA), Thyroid Disorder Additional Past Medical History / Comment(s): Hypertension, dyslipidemia, hypothyroidism, colon polyps History of Any Multi-Drug Resistant Organisms: None Reported Past Surgical History: Heart Catheterization, Hysterectomy Additional Past Surgical History / Comment(s): Right thyroidectomy. Colonoscopy Past Anesthesia/Blood Transfusion Reactions: No Reported Reaction Past Psychological History: No Psychological Hx Reported Smoking Status: Former smoker Past Alcohol Use History: Occasional Past Drug Use History: None Reported - Past Family History Mother Additional Family Medical History / Comment(s): Brain aneurysym. Denies any family history of colon cancer, Crohn's disease, ulcerative colitis. Father Family Medical History: Cancer Brother(s) Family Medical History: Cancer Sister(s) Family Medical History: Cancer General Exam - General Exam Comments Initial Comments: Constitutional: Awake alert Appears comfortable Head: Normocephalic atraumatic Eyes: no conjunctival injection No scleral icterus EOMI Neck: No JVD Supple Heart: Regular rate rhythm normal S1-S2 no murmurs Lungs: Tachypnea with decreased breath sounds at the bases No wheezing No rales Abdomen: Soft nondistended nontender Extremities: Non edematous DP pulses intact Radial pulses intact Neuro: A&Ox3 No focal neurologic deficits Psych: Appropriate mood and affect Limitations: no limitations Course Vital Signs 08/15/20 08/15/20 08/15/20 18:59 19:00 19:03 Temperature 98.2 F Pulse Rate 101 H Respiratory 28 H 28 H 28 H Rate Blood Pressure 90/62 O2 Sat by Pulse 78 L Oximetry 08/15/20 08/15/20 08/15/20 19:35 19:50 20:03 Temperature 98.2 F Pulse Rate 91 89 91 Respiratory 28 H 28 H 28 H Rate Blood Pressure 74/55 O2 Sat by Pulse 97 91 L 85 L Oximetry 08/15/20 08/15/20 20:20 20:37 Temperature Pulse Rate 78 84 Respiratory 28 H 18 Rate Blood Pressure 115/86 116/78 O2 Sat by Pulse 98 95 Oximetry - Reevaluation(s) Reevaluation #1: 08/15/20 19:30 EKG is showing normal sinus rhythm with a rate of 91. There is no abnormal ST 7 changes or tumors appear QTC is 383. Other intervals normal. No ectopy. Difficult to interpret in some areas because of artifact. Medical Decision Making - Medical Decision Making Is a 69-year-old female who presents emergency department for worsening shortness of breath. Patient was profoundly hypoxic on arrival. Chest x-ray showing bilateral infiltrates. Labs consistent with Coban. Coban was positive. The patient was started on aerosol and was started on Maxide adding's. Ox and saturations up in the 90s currently. The patient was briefly hypotensive and was given fluids with improvement in her blood pressure. Patient will be admitted to the hospital for further monitoring and management. Dr. Maharaj accepts the admission. - Lab Data Result diagrams: 08/15/20 19:30 08/15/20 19:30 Lab Results 08/15/20 08/15/20 08/15/20 Range/Units 19:30 19:30 19:30 WBC 10.6 (3.8-10.6) k/uL RBC 3.93 (3.80-5.40) m/uL Hgb 11.0 L (11.4-16.0) gm/dL Hct 31.4 L (34.0-46.0) % MCV 79.8 L (80.0-100.0) fL MCH 27.9 (25.0-35.0) pg MCHC 34.9 (31.0-37.0) g/dL RDW 16.6 H (11.5-15.5) % Plt Count 401 (150-450) k/uL MPV 7.0 Neutrophils % 80 % Lymphocytes % 18 % Monocytes % 1 % Eosinophils % 1 % Basophils % 0 % Neutrophils # 8.5 H (1.3-7.7) k/uL Lymphocytes # 1.9 (1.0-4.8) k/uL Monocytes # 0.1 (0-1.0) k/uL Eosinophils # 0.1 (0-0.7) k/uL Basophils # 0.0 (0-0.2) k/uL Anisocytosis Slight Microcytosis Slight PT 10.6 (9.0-12.0) sec INR 1.0 (<1.2) APTT 28.0 (22.0-30.0) sec D-Dimer 0.85 H (<0.60) mg/L FEU Sodium (137-145) mmol/L Potassium (3.5-5.1) mmol/L Chloride (98-107) mmol/L Carbon Dioxide (22-30) mmol/L Anion Gap mmol/L BUN (7-17) mg/dL Creatinine (0.52-1.04) mg/dL Est GFR (CKD-EPI)AfAm (>60 ml/min/1.73 sqM) Est GFR (CKD-EPI)NonAf (>60 ml/min/1.73 sqM) Glucose (74-99) mg/dL Plasma Lactic Acid Billy (0.7-2.0) mmol/L Calcium (8.4-10.2) mg/dL Magnesium (1.6-2.3) mg/dL Total Bilirubin (0.2-1.3) mg/dL AST (14-36) U/L ALT (4-34) U/L Alkaline Phosphatase (38-126) U/L Lactate Dehydrogenase (313-618) U/L C-Reactive Protein (<10.0) mg/L Total Protein (6.3-8.2) g/dL Albumin (3.5-5.0) g/dL Coronavirus (PCR) Detected A (Not Detectd) 08/15/20 08/15/20 Range/Units 19:30 19:30 WBC (3.8-10.6) k/uL RBC (3.80-5.40) m/uL Hgb (11.4-16.0) gm/dL Hct (34.0-46.0) % MCV (80.0-100.0) fL MCH (25.0-35.0) pg MCHC (31.0-37.0) g/dL RDW (11.5-15.5) % Plt Count (150-450) k/uL MPV Neutrophils % % Lymphocytes % % Monocytes % % Eosinophils % % Basophils % % Neutrophils # (1.3-7.7) k/uL Lymphocytes # (1.0-4.8) k/uL Monocytes # (0-1.0) k/uL Eosinophils # (0-0.7) k/uL Basophils # (0-0.2) k/uL Anisocytosis Microcytosis PT (9.0-12.0) sec INR (<1.2) APTT (22.0-30.0) sec D-Dimer (<0.60) mg/L FEU Sodium 127 L (137-145) mmol/L Potassium 3.5 (3.5-5.1) mmol/L Chloride 94 L (98-107) mmol/L Carbon Dioxide 24 (22-30) mmol/L Anion Gap 9 mmol/L BUN 8 (7-17) mg/dL Creatinine 0.69 (0.52-1.04) mg/dL Est GFR (CKD-EPI)AfAm >90 (>60 ml/min/1.73 sqM) Est GFR (CKD-EPI)NonAf 89 (>60 ml/min/1.73 sqM) Glucose 212 H (74-99) mg/dL Plasma Lactic Acid Billy 1.9 (0.7-2.0) mmol/L Calcium 8.3 L (8.4-10.2) mg/dL Magnesium 1.6 (1.6-2.3) mg/dL Total Bilirubin 0.4 (0.2-1.3) mg/dL AST 46 H (14-36) U/L ALT 25 (4-34) U/L Alkaline Phosphatase 42 (38-126) U/L Lactate Dehydrogenase 1145 H (313-618) U/L C-Reactive Protein 66.2 H (<10.0) mg/L Total Protein 7.1 (6.3-8.2) g/dL Albumin 3.2 L (3.5-5.0) g/dL Coronavirus (PCR) (Not Detectd) Critical Care Time Critical Care Time: Yes (Hypoxic Respiratory Failure) Total Critical Care Time: 45 Critical Care Time: Critical care time spent evaluating the patient and obtaining a history. Ordering lab studies and imaging studies and following up on those studies. Starting the patient on interval and frequent reevaluation the patient. Also management for hypotension that was fluid responsive and required fluid boluses Disposition Clinical Impression: COVID-19, Acute respiratory failure with hypoxia Disposition: ADMITTED IP TO THIS HOSP Condition: Critical Referrals: Yeinfer Acosta MD [Primary Care Provider] - 1-2 days
[2020-08-15 19:46] LABS: Anisocytosis Slight; Basophils % (A) 0 %; Eosinophils # (A) 0.1 k/uL (0-0.7); Eosinophils % (A) 1 %; HCT 31.4 % (34.0-46.0); Lymphocytes # (A) 1.9 k/uL (1.0-4.8); Lymphocytes % (A) 18 %; MCH 27.9 pg (25.0-35.0); MCHC 34.9 g/dL (31.0-37.0); MCV 79.8 fL (80.0-100.0); Microcytosis Slight; Monocytes # (A) 0.1 k/uL (0-1.0); Monocytes % (A) 1 %; Neutrophils # (A) 8.5 k/uL (1.3-7.7); Neutrophils % (A) 80 %; Platelet Count 401 k/uL (150-450); RBC 3.93 m/uL (3.80-5.40); RDW 16.6 % (11.5-15.5); WBC 10.6 k/uL (3.8-10.6)
[2020-08-15 19:52] LABS: ALT 25 U/L (4-34); AST 46 U/L (14-36); African American GFR (CKD) >90 (>60 ml/min/1.73 sqM); Albumin 3.2 g/dL (3.5-5.0); Alkaline Phosphatase 42 U/L (38-126); Anion Gap 9 mmol/L; Blood Urea Nitrogen 8 mg/dL (7-17); C Reactive Protein 66.2 mg/L (<10.0); Calcium 8.3 mg/dL (8.4-10.2); Carbon Dioxide 24 mmol/L (22-30); Chloride 94 mmol/L (98-107); Glucose 212 mg/dL (74-99); LDH 1145 U/L (313-618); Magnesium 1.6 mg/dL (1.6-2.3); Non-African American GFR(CKD) 89 (>60 ml/min/1.73 sqM); Potassium 3.5 mmol/L (3.5-5.1); Prothrombin Time 10.6 sec (9.0-12.0); Sodium 127 mmol/L (137-145); Total Bilirubin 0.4 mg/dL (0.2-1.3); Total Protein 7.1 g/dL (6.3-8.2)
[2020-08-15] MEDS: DEXAMETHASONE SOD PHOSPHATE 10 MG/ML 1 ML VIAL IV SCH (19:53)
--- NOTE | 2020-08-15 20:05 | XR ---
EXAMINATION TYPE: XR chest 1V portable DATE OF EXAM: 08/15/2020 COMPARISON: 09/23/2019 HISTORY: Cough, shortness of breath TECHNIQUE: Single frontal view of the chest is obtained. FINDINGS: Of bilateral lower lobe infiltrate with diffuse interstitial pattern. Arthropathy of the s houlders. No pneumothorax. Heart size mildly prominent. IMPRESSION: 1. Bilateral lower lobe pneumonia with small effusion. Correlate for interstitial pneumonia. Venous c ongestion felt less likely.
[2020-08-15] MEDS ORDERED: SODIUM CHLORIDE 0.9% 1,000 ML IV ONE (20:07)
[2020-08-15 20:33] LABS: D-Dimer 0.85 mg/L FEU (<0.60)
[2020-08-15] MEDS ORDERED: ENOXAPARIN 30 MG/0.3 ML SYRINGE SQ STA (20:40)
[2020-08-15] MEDS ORDERED: NALOXONE 0.4 MG/ML 1 ML VIAL IV PRN (20:46)
[2020-08-15] MEDS: SODIUM CHLORIDE 0.9% 1,000 ML IV SCH (21:36)
--- NOTE | 2020-08-15 22:47 | P.HPIM ---
History of Present Illness H&P Date: 08/15/20 Chief Complaint: Shortness of brath, hypoxemia 69 year old female with history of colitis, hyperlipidemia , hypothyroid She was diagnosed with COVID about 10 days ago 08/04, she had positive contact with patients at a [facility] gathering, she lives alone, she does not know the health status of the people she has been in contact with who had COVID she manifested typical symptoms suggestive of COVID (body aches, fever, chills, SOB, sore throat, she has off on diarrhea from colitis with occasional blood). her PCP ordered some medrol dose pack to her which she took for about 6 days now, and she has been checking her oxygen level. today she was feeling worse, with SOB at rest , she found that her oxygen level has been below 90% for which she decided to come in for evaluation in the ED, she was found to be in the 70% on room air, she was started on oxygen and rapidly escalated to airvo to maintain oxygen sat above 90%. she feels anxious and concerned at this time. , she has not received vaccination. ER workup showed COIVD positive d dimer elevated to 0.85 mild anemia elevated CRP and LDH hyponatremia CXR lower lobe infilterates EKG NSR Review of Systems Pertinent positives as noted in HPI. All other systems were reviewed and are negative Past Medical History Past Medical History: COPD, Diabetes Mellitus, Osteoarthritis (OA), Thyroid Disorder Additional Past Medical History / Comment(s): Hypertension, dyslipidemia, hypothyroidism, colon polyps History of Any Multi-Drug Resistant Organisms: None Reported Past Surgical History: Heart Catheterization, Hysterectomy Additional Past Surgical History / Comment(s): Right thyroidectomy. Colonoscopy Past Anesthesia/Blood Transfusion Reactions: No Reported Reaction Past Psychological History: No Psychological Hx Reported Smoking Status: Former smoker Past Alcohol Use History: Occasional Past Drug Use History: None Reported - Past Family History Mother Additional Family Medical History / Comment(s): Brain aneurysym. Denies any family history of colon cancer, Crohn's disease, ulcerative colitis. Father Family Medical History: Cancer Brother(s) Family Medical History: Cancer Sister(s) Family Medical History: Cancer Medications and Allergies Home Medications Medication Instructions Recorded Confirmed Type Ferrous Sulfate [Iron] 325 mg PO DAILY 09/02/18 08/15/20 History Metoprolol Tartrate 25 mg PO BID 09/02/18 08/15/20 History Simvastatin 40 mg PO HS 09/02/18 08/15/20 History Fluticasone Nasal [place] [Flonase 1 spray EA NOSTRIL DAILY 09/03/18 08/15/20 History Nasal [place]] Glimepiride [Amaryl] 1 mg PO AC-SUPPER 12/12/18 08/15/20 History Mesalamine [Lialda] 4.8 gm PO DAILY 12/12/18 08/15/20 History Adalimumab [Humira Pen] 40 mg SQ Q14D 08/15/20 08/15/20 History Ascorbic Acid [Vitamin C] 500 mg PO DAILY 08/15/20 08/15/20 History Cholecalciferol [Vitamin D3 (25 25 mcg PO DAILY 08/15/20 08/15/20 History Mcg = 1000 Iu)] Dicyclomine HCl 20 mg PO TID PRN 08/15/20 08/15/20 History Glimepiride [Amaryl] 2 mg PO AC-BRKFST 08/15/20 08/15/20 History Levothyroxine Sodium [Synthroid] 88 mcg PO DAILY 08/15/20 08/15/20 History Loratadine 10 mg PO DAILY 08/15/20 08/15/20 History Pregabalin [Lyrica] 75 mg PO BID 08/15/20 08/15/20 History predniSONE See Taper PO DIRECTED 08/15/20 08/15/20 History Allergies Allergy/AdvReac Type Severity Reaction Status Date / Time dextromethorphan Allergy Unknown Verified 08/15/20 19:04 [From NyQuil] doxylamine [From NyQuil] Allergy Unknown Verified 08/15/20 19:04 pseudoephedrine [From NyQuil] Allergy Unknown Verified 08/15/20 19:04 Physical Exam Vitals: Vital Signs Temp Pulse Resp BP Pulse Ox 08/15/20 22:00 82 28 H 109/76 93 L 08/15/20 21:32 83 28 H 115/73 92 L 08/15/20 21:00 82 28 H 111/70 95 08/15/20 20:37 84 18 116/78 95 08/15/20 20:20 78 28 H 115/86 98 08/15/20 20:03 91 28 H 74/55 85 L 08/15/20 19:50 89 28 H 91 L 08/15/20 19:35 98.2 F 91 28 H 97 08/15/20 19:03 28 H 08/15/20 19:00 28 H 08/15/20 18:59 98.2 F 101 H 28 H 90/62 78 L Intake and Output 08/15/20 08/15/20 08/15/20 06:59 14:59 22:59 Other: Weight 60.781 kg Constitutional: she is anxious , awake , follows commands, alert, and struggling to finish complete sentences as she gets short of breath easily Eyes: Anicteric sclerae, moist conjunctiva, Pupils equal round reactive to light ENMT: NC/AT Oropharynx clear, no erythema, or exudates Neck: Supple, FROM, no masses, or JVD No carotid bruits No thyromegaly Lungs: Clear to auscultation Clear to percussion no accessory muscle use , tachypnic Cardiovascular: Heart regular in rate and rhythm, No murmurs, gallops, or rubs No peripheral edema Abdominal: Soft Nontender, no guarding, rebound or rigidity Abdomen moving with respiration Normoactive bowel sounds No hepatomegaly, No splenomegaly No palpable mass No abdominal wall hernia noted Skin: Normal temperature, tone, texture, turgor No induration No subcutaneous nodules No rash, lesions No ulcers Extremities: No digital cyanosis No clubbing Pedal pulses intact and symmetrical Radial pulses intact and symmetrical No calf tenderness Psychiatric: Alert and oriented to person, place and time Appropriate affect fair judgement Neuro Muscles Strength 4/5 in all 4 extremities Sensation to light touch grossly present throughout Cranial nerves II-XII grossly intact No focal sensory deficits Lymphatics: no palpable cervical or supraclavicular , or inguinal lymph nodes Results CBC & Chem 7: 08/15/20 19:30 08/15/20 19:30 Labs: Abnormal Lab Results - Last 24 Hours (Table) 08/15/20 08/15/20 08/15/20 Range/Units 19:30 19:30 19:30 Hgb 11.0 L (11.4-16.0) gm/dL Hct 31.4 L (34.0-46.0) % MCV 79.8 L (80.0-100.0) fL RDW 16.6 H (11.5-15.5) % Neutrophils # 8.5 H (1.3-7.7) k/uL D-Dimer 0.85 H (<0.60) mg/L FEU Sodium (137-145) mmol/L Chloride (98-107) mmol/L Glucose (74-99) mg/dL Calcium (8.4-10.2) mg/dL AST (14-36) U/L Lactate Dehydrogenase (313-618) U/L C-Reactive Protein (<10.0) mg/L Albumin (3.5-5.0) g/dL Coronavirus (PCR) Detected A (Not Detectd) 08/15/20 Range/Units 19:30 Hgb (11.4-16.0) gm/dL Hct (34.0-46.0) % MCV (80.0-100.0) fL RDW (11.5-15.5) % Neutrophils # (1.3-7.7) k/uL D-Dimer (<0.60) mg/L FEU Sodium 127 L (137-145) mmol/L Chloride 94 L (98-107) mmol/L Glucose 212 H (74-99) mg/dL Calcium 8.3 L (8.4-10.2) mg/dL AST 46 H (14-36) U/L Lactate Dehydrogenase 1145 H (313-618) U/L C-Reactive Protein 66.2 H (<10.0) mg/L Albumin 3.2 L (3.5-5.0) g/dL Coronavirus (PCR) (Not Detectd) Assessment and Plan Assessment: acute hypoxic respiratory failure COIVD pneumonia history of colitis chronic mild anemia hyponatremia hypothyroid history of hypertension and hyperlipidemia plan supportive care imaging and labs reviewed pulm consult start on decadrone evaluate for actemra follow up inflammatory markers d dimer, LDH ferritin , CRP continue home meds lovenox daily sq currently on airvo , titrate as needed to keep oxygen sat >90% IV fluid hydration gentle with normal saline CODE STATUS: Full code DVT prophylaxis: Lovenox subcu daily Discussed with: Patient, ER, RN Anticipated length of stay more than [address]: Guarded prognosis pending clinical course A total of 70 minutes was spent on the care of this complex patient more than 50% of the time was spent in counseling and care coordination.
[2020-08-15 23:31] LABS: Glucose,Whole Blood 212 mg/dL (75-99)
[2020-08-15] MEDS: BALSALAZIDE DISODIUM 750 MG CAPSULE PO SCH (23:53)
[2020-08-16 06:16] LABS: Glucose,Whole Blood 201 mg/dL (75-99)
[2020-08-16] MEDS: LEVOTHYROXINE 88 MCG TAB PO SCH (06:35)
[2020-08-16] MEDS: SODIUM CHLORIDE 0.9% 1,000 ML IV SCH ×2 (07:06→17:48)
[2020-08-16] MEDS: BALSALAZIDE DISODIUM 750 MG CAPSULE PO SCH ×3 (10:17→21:05)
[2020-08-16] MEDS: ENOXAPARIN 40 MG/0.4 ML SYRINGE SQ SCH (10:17)
[2020-08-16] MEDS: DEXAMETHASONE SOD PHOSPHATE 10 MG/ML 1 ML VIAL IV SCH (10:17)
[2020-08-16] MEDS: PREGABALIN 75 MG CAP PO SCH ×2 (10:17→21:05)
[2020-08-16] MEDS: DICYCLOMINE 20 MG TAB PO PRN (10:27)
[2020-08-16 11:48] LABS: ALT 23 U/L (4-34); AST 40 U/L (14-36); African American GFR (CKD) >90 (>60 ml/min/1.73 sqM); Albumin 3.1 g/dL (3.5-5.0); Alkaline Phosphatase 38 U/L (38-126); Anion Gap 9 mmol/L; Blood Urea Nitrogen 6 mg/dL (7-17); Carbon Dioxide 23 mmol/L (22-30); Chloride 100 mmol/L (98-107); Glucose 133 mg/dL (74-99); LDH 1128 U/L (313-618); Non-African American GFR(CKD) >90 (>60 ml/min/1.73 sqM); Potassium 4.5 mmol/L (3.5-5.1); Sodium 132 mmol/L (137-145); Total Bilirubin 0.5 mg/dL (0.2-1.3); Total Protein 7.1 g/dL (6.3-8.2)
[2020-08-16 12:02] LABS: Anisocytosis Slight; Basophils % (A) 0 %; Eosinophils % (A) 1 %; HCT 33.3 % (34.0-46.0); HGB 11.3 gm/dL (11.4-16.0); Lymphocytes # (A) 1.2 k/uL (1.0-4.8); Lymphocytes % (A) 29 %; MCV 82.4 fL (80.0-100.0); Mean Platelet Volume 7.8; Monocytes # (A) 0.1 k/uL (0-1.0); Monocytes % (A) 2 %; Neutrophils # (A) 2.9 k/uL (1.3-7.7); Neutrophils % (A) 67 %; Platelet Count 371 k/uL (150-450); RBC 4.04 m/uL (3.80-5.40); RDW 16.9 % (11.5-15.5); WBC 4.3 k/uL (3.8-10.6)
[2020-08-16 12:05] LABS: Ferritin 473.1 ng/mL (10.0-291.0)
--- NOTE | 2020-08-16 12:11 | P.PN ---
Subjective Progress Note Date: 08/16/20 No new complaints. Pt reports feeling better after initiation of AirVo. Objective - Vital Signs Vital signs: Vital Signs Temp 97.4 F L 08/16/20 10:13 Pulse 72 08/16/20 10:13 Resp 24 08/16/20 10:13 BP 124/78 08/16/20 10:13 Pulse Ox 95 08/16/20 10:13 Intake & Output 08/15/20 08/16/20 08/16/20 18:59 06:59 18:59 Output Total 0 600 Balance 0 -600 Weight 60.781 kg 63 kg Output: Urine 0 300 Stool 300 Other: Voiding Method Bedpan Diaper - Exam Gen: awake, alert HEENT: normocephalic, atraumatic, good hearing acuity, moist mucous membranes Resp: good air exchange, breathing with mild distress with no accessory muscle use CVS: good distal perfusion x 4, GI: soft, NTTP, ND : no SPT, no CVAT, ugarte catheter not present MSK: no pitting edema, no clubbing Neuro: non-focal, moving all extremities Psych: cooperative, euthymic mood - Labs CBC & Chem 7: 08/16/20 10:50 08/16/20 10:50 Labs: Abnormal Lab Results - Last 24 Hours (Table) 08/15/20 08/15/20 08/15/20 Range/Units 19:30 19:30 19:30 Hgb 11.0 L (11.4-16.0) gm/dL Hct 31.4 L (34.0-46.0) % MCV 79.8 L (80.0-100.0) fL RDW 16.6 H (11.5-15.5) % Neutrophils # 8.5 H (1.3-7.7) k/uL D-Dimer 0.85 H (<0.60) mg/L FEU Sodium (137-145) mmol/L Chloride (98-107) mmol/L BUN (7-17) mg/dL Creatinine (0.52-1.04) mg/dL Glucose (74-99) mg/dL POC Glucose (mg/dL) (75-99) mg/dL Calcium (8.4-10.2) mg/dL Ferritin (10.0-291.0) ng/mL AST (14-36) U/L Lactate Dehydrogenase (313-618) U/L C-Reactive Protein (<10.0) mg/L Albumin (3.5-5.0) g/dL Procalcitonin (0.02-0.09) ng/mL Coronavirus (PCR) Detected A (Not Detectd) 08/15/20 08/15/20 08/15/20 Range/Units 19:30 19:30 23:11 Hgb (11.4-16.0) gm/dL Hct (34.0-46.0) % MCV (80.0-100.0) fL RDW (11.5-15.5) % Neutrophils # (1.3-7.7) k/uL D-Dimer (<0.60) mg/L FEU Sodium 127 L (137-145) mmol/L Chloride 94 L (98-107) mmol/L BUN (7-17) mg/dL Creatinine (0.52-1.04) mg/dL Glucose 212 H (74-99) mg/dL POC Glucose (mg/dL) 212 H (75-99) mg/dL Calcium 8.3 L (8.4-10.2) mg/dL Ferritin 473.1 H (10.0-291.0) ng/mL AST 46 H (14-36) U/L Lactate Dehydrogenase 1145 H (313-618) U/L C-Reactive Protein 66.2 H (<10.0) mg/L Albumin 3.2 L (3.5-5.0) g/dL Procalcitonin 0.16 H (0.02-0.09) ng/mL Coronavirus (PCR) (Not Detectd) 08/16/20 08/16/20 08/16/20 Range/Units 06:13 10:50 10:50 Hgb 11.3 L (11.4-16.0) gm/dL Hct 33.3 L (34.0-46.0) % MCV (80.0-100.0) fL RDW 16.9 H (11.5-15.5) % Neutrophils # (1.3-7.7) k/uL D-Dimer 0.88 H (<0.60) mg/L FEU Sodium (137-145) mmol/L Chloride (98-107) mmol/L BUN (7-17) mg/dL Creatinine (0.52-1.04) mg/dL Glucose (74-99) mg/dL POC Glucose (mg/dL) 201 H (75-99) mg/dL Calcium (8.4-10.2) mg/dL Ferritin (10.0-291.0) ng/mL AST (14-36) U/L Lactate Dehydrogenase (313-618) U/L C-Reactive Protein (<10.0) mg/L Albumin (3.5-5.0) g/dL Procalcitonin (0.02-0.09) ng/mL Coronavirus (PCR) (Not Detectd) 08/16/20 Range/Units 10:50 Hgb (11.4-16.0) gm/dL Hct (34.0-46.0) % MCV (80.0-100.0) fL RDW (11.5-15.5) % Neutrophils # (1.3-7.7) k/uL D-Dimer (<0.60) mg/L FEU Sodium 132 L (137-145) mmol/L Chloride (98-107) mmol/L BUN 6 L (7-17) mg/dL Creatinine 0.49 L (0.52-1.04) mg/dL Glucose 133 H (74-99) mg/dL POC Glucose (mg/dL) (75-99) mg/dL Calcium 8.0 L (8.4-10.2) mg/dL Ferritin (10.0-291.0) ng/mL AST 40 H (14-36) U/L Lactate Dehydrogenase 1128 H (313-618) U/L C-Reactive Protein (<10.0) mg/L Albumin 3.1 L (3.5-5.0) g/dL Procalcitonin (0.02-0.09) ng/mL Coronavirus (PCR) (Not Detectd) Assessment and Plan Assessment: acute hypoxic respiratory failure with ARDS COIVD pneumonia history of colitis chronic mild anemia hyponatremia hypothyroid history of hypertension and hyperlipidemia plan supportive care imaging and labs reviewed pulm consult start on decadron evaluate for actemra started ceftriaxone/azithromycin follow up inflammatory markers d dimer, LDH ferritin , CRP continue home meds lovenox daily sq currently on airvo , titrate as needed to keep oxygen sat >90% IV fluid hydration gentle with normal saline CODE STATUS: Full code DVT prophylaxis: Lovenox subcu daily Discussed with: Patient, ER, RN Anticipated length of stay more than [address]: Guarded prognosis pending clinical course
[2020-08-16 12:15] LABS: Glucose,Whole Blood 125 mg/dL (75-99)
[2020-08-16] MEDS ORDERED: AZITHROMYCIN 500 MG in SODIUM CHLORIDE 0.9% 250 ML IVPB SCH (12:30)
[2020-08-16] MEDS: ASCORBIC ACID 500 MG TAB PO SCH (13:43)
[2020-08-16] MEDS: FERROUS SULFATE 325 MG TAB PO SCH (13:43)
[2020-08-16] MEDS: LORATADINE 10 MG TAB PO SCH (13:43)
[2020-08-16] MEDS: CHOLECALCIFEROL 25 MCG (1000 IU) TABLET PO SCH (13:43)
[2020-08-16 16:44] LABS: Glucose,Whole Blood 188 mg/dL (75-99)
--- NOTE | 2020-08-16 17:30 | P.CNPUL ---
History of Present Illness Consult date: 08/16/20 Requesting physician: Radha Oliva Reason for consult: dyspnea, abnormal CXR/CT Chief complaint: Shortness of breath, cough, congestion History of present illness: This a very pleasant 69-year-old female patient who follows with Dr. Caro as her primary care provider. She has a history of hypertension, hyperlipidemia, hypothyroidism, diabetes mellitus. She had issues with shortness of breath, cough congestion. She tested positive for CoVID 19 on 08/04/2020. She states that's when her symptoms mainly started as well. Since that time the her shortness of breath has increased. She checked her pulse oximeter readings at home and was in the 60s. She came to the emergency room for the same. Chest x- ray does show bilateral patchy infiltrates consistent with CoVID 19 pneumonia. White count 4.3. Hemoglobin 11.3. D-dimer 0.8. Sodium 132. Potassium 4.5. Creatinine 0.49. LDH 1128. C-reactive protein 66. Pro-calcitonin 0.16. [place] virus by PCR detected. She's been initiated on Decadron, Lovenox, vitamin supplements. Review of Systems REVIEW OF SYSTEMS: CONSTITUTIONAL: Denies any recent significant weight loss or weight gain. EYES: Denies change in vision. EARS, NOSE, MOUTH, THROAT: Denies headaches, denies sore throat. CARDIOVASCULAR: Denies chest pain, palpitations or syncopal episodes. RESPIRATORY: Positive for shortness of breath, cough, congestion no hemoptysis. GASTROINTESTINAL: Denies change in appetite, denies abdominal pain GENITOURINARY: Denies hematuria, denies infections. MUSKULOSKELETAL: Denies pain, denies swelling. INTEGUMENTARY: Denies rash, denies eczema. NEUROLOGICAL: Denies recent memory loss, no recent seizure activity. PSYCHIATRIC: Denies anxiety, denies depression. HEMATOLOGIC/LYMPHATIC: Denies anemia, denies enlarged lymph nodes. Past Medical History Past Medical History: COPD, Diabetes Mellitus, Osteoarthritis (OA), Thyroid Disorder Additional Past Medical History / Comment(s): Hypertension, dyslipidemia, hypothyroidism, colon polyps, crohns disease and collitis History of Any Multi-Drug Resistant Organisms: None Reported Past Surgical History: Heart Catheterization, Hysterectomy Additional Past Surgical History / Comment(s): Right thyroidectomy. Colonoscopy Past Anesthesia/Blood Transfusion Reactions: No Reported Reaction Past Psychological History: No Psychological Hx Reported Smoking Status: Former smoker Past Alcohol Use History: Occasional Additional Past Alcohol Use History / Comment(s): Quit smoking 20 yrs ago. Past Drug Use History: None Reported - Past Family History Mother Additional Family Medical History / Comment(s): Brain aneurysym. Denies any family history of colon cancer, Crohn's disease, ulcerative colitis. Father Family Medical History: Cancer Brother(s) Family Medical History: Cancer Sister(s) Family Medical History: Cancer Medications and Allergies Home Medications Medication Instructions Recorded Confirmed Type Ferrous Sulfate [Iron] 325 mg PO DAILY 09/02/18 08/15/20 History Metoprolol Tartrate 25 mg PO BID 09/02/18 08/15/20 History Simvastatin 40 mg PO HS 09/02/18 08/15/20 History Fluticasone Nasal [place] [Flonase 1 spray EA NOSTRIL DAILY 09/03/18 08/15/20 History Nasal [place]] Glimepiride [Amaryl] 1 mg PO AC-SUPPER 12/12/18 08/15/20 History Mesalamine [Lialda] 4.8 gm PO DAILY 12/12/18 08/15/20 History Adalimumab [Humira Pen] 40 mg SQ Q14D 08/15/20 08/15/20 History Ascorbic Acid [Vitamin C] 500 mg PO DAILY 08/15/20 08/15/20 History Cholecalciferol [Vitamin D3 (25 25 mcg PO DAILY 08/15/20 08/15/20 History Mcg = 1000 Iu)] Dicyclomine HCl 20 mg PO TID PRN 08/15/20 08/15/20 History Glimepiride [Amaryl] 2 mg PO AC-BRKFST 08/15/20 08/15/20 History Levothyroxine Sodium [Synthroid] 88 mcg PO DAILY 08/15/20 08/15/20 History Loratadine 10 mg PO DAILY 08/15/20 08/15/20 History Pregabalin [Lyrica] 75 mg PO BID 08/15/20 08/15/20 History predniSONE See Taper PO DIRECTED 08/15/20 08/15/20 History Benzonatate [Tessalon Per[place]] 100 mg PO TID PRN 08/16/20 08/16/20 History Allergies Allergy/AdvReac Type Severity Reaction Status Date / Time dextromethorphan Allergy Unknown Verified 08/16/20 11:00 [From NyQuil] doxylamine [From NyQuil] Allergy Unknown Verified 08/16/20 11:00 pseudoephedrine [From NyQuil] Allergy Unknown Verified 08/16/20 11:00 Physical Exam Vitals: Vital Signs Temp Pulse Pulse Resp BP BP Pulse Ox 08/16/20 16:47 97.6 F 82 18 128/74 94 L 08/16/20 11:40 70 18 131/78 99 08/16/20 10:15 70 18 08/16/20 10:13 97.4 F L 72 24 124/78 95 08/16/20 04:00 97.6 F 65 18 115/75 96 08/16/20 01:08 84 21 08/15/20 23:17 98.1 F 84 21 133/79 97 08/15/20 22:52 98.5 F 86 18 110/76 94 L 08/15/20 22:00 82 28 H 109/76 93 L 08/15/20 21:32 83 28 H 115/73 92 L 08/15/20 21:00 82 28 H 111/70 95 08/15/20 20:37 84 18 116/78 95 08/15/20 20:20 78 28 H 115/86 98 08/15/20 20:03 91 28 H 74/55 85 L 08/15/20 19:50 89 28 H 91 L 08/15/20 19:35 98.2 F 91 28 H 97 08/15/20 19:03 28 H 08/15/20 19:00 28 H 08/15/20 18:59 98.2 F 101 H 28 H 90/62 78 L Intake and Output 08/16/20 08/16/20 08/16/20 06:59 14:59 22:59 Output Total 0 600 Balance 0 -600 Output: Urine 0 300 Stool 300 Other: Voiding Method Bedpan Bedpan Diaper Diaper Weight 63 kg GENERAL EXAM: Alert, pleasant 69-year-old female patient, on airflow high flow oxygen at 60 L and 90% FiO2, in mild respiratory distress. HEAD: Normocephalic. EYES: Normal reaction of pupils, equal size. NOSE: Clear with pink turbinates. THROAT: No erythema or exudates. NECK: No masses, no JVD. CHEST: No chest wall deformity. LUNGS: Equal air entry with crackles in the bilateral bases CVS: S1 and S2 normal with no audible murmur, regular rhythm. ABDOMEN: No hepatosplenomegaly, normal bowel sounds, no guarding or rigidity. SPINE: No scoliosis or deformity SKIN: No rashes CENTRAL NERVOUS SYSTEM: No focal deficits, tone is normal in all 4 extremities. EXTREMITIES: There is no peripheral edema. No clubbing, no cyanosis. Lesa pheral pulses are intact. Results - Laboratory Findings CBC and BMP: 08/16/20 10:50 08/16/20 10:50 PT/INR, D-dimer PT 10.6 sec (9.0-12.0) 08/15/20 19:30 INR 1.0 (<1.2) 08/15/20 19:30 D-Dimer 0.88 mg/L FEU (<0.60) H 08/16/20 10:50 Abnormal lab findings: Abnormal Labs 08/15/20 08/15/20 08/15/20 19:30 19:30 19:30 Hgb 11.0 L Hct 31.4 L MCV 79.8 L RDW 16.6 H Neutrophils # 8.5 H D-Dimer 0.85 H Sodium Chloride BUN Creatinine Glucose POC Glucose (mg/dL) Calcium Ferritin AST Lactate Dehydrogenase C-Reactive Protein Albumin Procalcitonin Coronavirus (PCR) Detected A 08/15/20 08/15/20 08/15/20 19:30 19:30 23:11 Hgb Hct MCV RDW Neutrophils # D-Dimer Sodium 127 L Chloride 94 L BUN Creatinine Glucose 212 H POC Glucose (mg/dL) 212 H Calcium 8.3 L Ferritin 473.1 H AST 46 H Lactate Dehydrogenase 1145 H C-Reactive Protein 66.2 H Albumin 3.2 L Procalcitonin 0.16 H Coronavirus (PCR) 08/16/20 08/16/20 08/16/20 06:13 10:50 10:50 Hgb 11.3 L Hct 33.3 L MCV RDW 16.9 H Neutrophils # D-Dimer 0.88 H Sodium Chloride BUN Creatinine Glucose POC Glucose (mg/dL) 201 H Calcium Ferritin AST Lactate Dehydrogenase C-Reactive Protein Albumin Procalcitonin Coronavirus (PCR) 08/16/20 08/16/2021 10:50 12:13 16:41 Hgb Hct MCV RDW Neutrophils # D-Dimer Sodium 132 L Chloride BUN 6 L Creatinine 0.49 L Glucose 133 H POC Glucose (mg/dL) 125 H 188 H Calcium 8.0 L Ferritin AST 40 H Lactate Dehydrogenase 1128 H C-Reactive Protein Albumin 3.1 L Procalcitonin Coronavirus (PCR) - Diagnostic Findings Chest x-ray: image reviewed Assessment and Plan Assessment: 1 Acute hypoxemic respiratory failure secondary to acute CoVID 19 pneumonia/pneumonitis 2 Elevated inflammatory markers secondary to above 3 Osteoarthritis 4 Hypertension 5 Hyperlipidemia 6 Diabetes mellitus 7 Hypothyroidism, previous right thyroidectomy Plan: The patient was seen and evaluated by Dr. Mccabe Chest x-ray and labs reviewed Currently on AirVo high flow at 60 L and 90% FiO2 Discontinue antibiotics Continue dexamethasone, Lovenox, vitamin supplements Initiate tocilizumab Obtain a CT angiogram Repeat inflammatory markers in the a.m. We'll continue to follow and make further recommendations based on her clinical status I, the cosigning physician, performed a history & physical examination of the patient. Lungs sounds with coarse crackles in the bilateral basal. Maintaining good O2 saturations in the 90s on AirVo high flow oxygen at 60 L and 90% FiO2. I discussed the assessment and plan of care with my nurse practitioner, Aria Turner. I attest to the above consultation as dictated by her. Time with Patient: Greater than 30
[2020-08-16] MEDS: INSULIN ASPART (NovoLOG) 100 UNIT/ML VIAL SQ SCH (17:47)
[2020-08-16] MEDS: LOPERAMIDE 2 MG CAP PO PRN (17:47)
[2020-08-16] MEDS: ZINC SULFATE 220 MG CAP PO SCH (17:48)
[2020-08-16] MEDS ORDERED: TOCILIZUMAB IV ONE (18:00)
[2020-08-16] MEDS ORDERED: SODIUM CHLORIDE 0.9% IV ONE (18:00)
[2020-08-16 20:49] LABS: Glucose,Whole Blood 164 mg/dL (75-99)
[2020-08-16] MEDS: ATORVASTATIN 20 MG TAB PO SCH (21:05)
--- NOTE | 2020-08-17 00:48 | CT ---
EXAMINATION TYPE: CT angio chest DATE OF EXAM: 08/16/2020 COMPARISON: None HISTORY: PE suspected, covid CT DLP: 246.9 mGycm Automated exposure control for dose reduction was used. CONTRAST: Performed with IV Contrast, patient injected with 100 mL of Isovue 370. Images obtained from the thoracic inlet to the diaphragm with IV contrast and 3-D post processing. There are extensive bilateral pulmonary interstitial and airspace infiltrates. These are mostly in th e periphery of both lungs. There is consolidation at the posterior lung bases. There is some atelecta sis at the lung bases. Heart is slightly enlarged. There is no pericardial effusion. There is normal contrast opacification of the pulmonary arteries. There is no filling defect. There i s mild elevation of the right diaphragm. There are no hilar masses. There is no mediastinal adenopath y. Thoracic aorta is intact. There is no aneurysm or dissection. There is some mild spurring in the thoracic spine. Sternum is intact. There is no significant goyo sharyn deformity. IMPRESSION: No evidence of pulmonary embolism. Moderately severe bilateral pneumonia. Bilateral basilar atelectas is.
[2020-08-17 06:01] LABS: Glucose,Whole Blood 117 mg/dL (75-99)
[2020-08-17] MEDS: SODIUM CHLORIDE 0.9% 1,000 ML IV SCH ×3 (06:28→23:24)
[2020-08-17] MEDS: INSULIN ASPART (NovoLOG) 100 UNIT/ML VIAL SQ SCH ×3 (06:28→17:48)
[2020-08-17] MEDS: LEVOTHYROXINE 88 MCG TAB PO SCH (06:31)
[2020-08-17] MEDS: LOPERAMIDE 2 MG CAP PO PRN ×3 (08:59→19:56)
[2020-08-17] MEDS: DICYCLOMINE 20 MG TAB PO PRN ×3 (08:59→19:56)
[2020-08-17] MEDS: CHOLECALCIFEROL 25 MCG (1000 IU) TABLET PO SCH (09:00)
[2020-08-17] MEDS: DEXAMETHASONE SOD PHOSPHATE 10 MG/ML 1 ML VIAL IV SCH (09:00)
[2020-08-17] MEDS: ZINC SULFATE 220 MG CAP PO SCH (09:00)
[2020-08-17] MEDS: ASCORBIC ACID 500 MG TAB PO SCH (09:00)
[2020-08-17] MEDS: PREGABALIN 75 MG CAP PO SCH ×2 (09:00→19:56)
[2020-08-17] MEDS: LORATADINE 10 MG TAB PO SCH (09:00)
[2020-08-17] MEDS: FERROUS SULFATE 325 MG TAB PO SCH (09:00)
[2020-08-17] MEDS: ENOXAPARIN 40 MG/0.4 ML SYRINGE SQ SCH (09:01)
[2020-08-17] MEDS: BALSALAZIDE DISODIUM 750 MG CAPSULE PO SCH ×3 (09:01→18:27)
[2020-08-17] MEDS: FLUTICASONE 50MCG/SPRAY NASAL 16GM EA NOSTRIL SCH (09:02)
[2020-08-17 11:51] LABS: Glucose,Whole Blood 171 mg/dL (75-99)
--- NOTE | 2020-08-17 14:32 | P.PN ---
Subjective Progress Note Date: 08/17/20 Principal diagnosis: CoVID 19 pneumonia This a very pleasant 69-year-old female patient who follows with Dr. Caro as her primary care provider. She has a history of hypertension, hyperlipidemia, hypothyroidism, diabetes mellitus. She had issues with shortness of breath, cough congestion. She tested positive for CoVID 19 on 08/04/2020. She states that's when her symptoms mainly started as well. Since that time the her shortness of breath has increased. She checked her pulse oximeter readings at home and was in the 60s. She came to the emergency room for the same. Chest x- ray does show bilateral patchy infiltrates consistent with CoVID 19 pneumonia. White count 4.3. Hemoglobin 11.3. D-dimer 0.8. Sodium 132. Potassium 4.5. Creatinine 0.49. LDH 1128. C-reactive protein 66. Pro-calcitonin 0.16. [place] virus by PCR detected. She's been initiated on Decadron, Lovenox, vitamin supplements. The patient is seen today 08/17/2020 in follow-up on the selective care unit. She is currently resting in bed. Awake and alert in no acute distress. Feeling just a bit better today compared to yesterday. She is still requiring AirVo high flow oxygen at 60 L and 90% FiO2 to maintain O2 saturations in the 90s. 0.9 normal saline at [address] angiogram revealed no evidence of pulmonary embolism. There is moderately severe bilateral pneumonia, bilateral basilar atelectasis. Blood cultures reveal no growth. She did receive Tocilizumab. Continued on Lovenox, Decadron, vitamin supplements. Objective - Vital Signs Vital signs: Vital Signs Temp 97.5 F L 08/17/20 08:00 Pulse 71 08/17/20 12:00 Resp 20 08/17/20 12:00 BP 128/81 08/17/20 12:00 Pulse Ox 96 08/17/20 12:00 Intake & Output 08/16/20 08/17/20 08/17/20 18:59 06:59 18:59 Intake Total 240 118 Output Total 600 200 Balance -600 40 118 Weight 65 kg Intake: Oral 240 118 Output: Urine 300 Stool 300 200 Other: Voiding Method Bedpan Diaper # Voids 1 # Bowel Movements 3 - Exam GENERAL EXAM: Alert, pleasant 69-year-old female patient, on airflow high flow oxygen at 60 L and 90% FiO2, in mild respiratory distress. HEAD: Normocephalic. EYES: Normal reaction of pupils, equal size. NOSE: Clear with pink turbinates. THROAT: No erythema or exudates. NECK: No masses, no JVD. CHEST: No chest wall deformity. LUNGS: Equal air entry with crackles in the bilateral bases CVS: S1 and S2 normal with no audible murmur, regular rhythm. ABDOMEN: No hepatosplenomegaly, normal bowel sounds, no guarding or rigidity. SPINE: No scoliosis or deformity SKIN: No rashes CENTRAL NERVOUS SYSTEM: No focal deficits, tone is normal in all 4 extremities. EXTREMITIES: There is no peripheral edema. No clubbing, no cyanosis. Peripheral pulses are intact. - Labs CBC & Chem 7: 08/16/20 10:50 08/16/20 10:50 Labs: Abnormal Lab Results - Last 24 Hours (Table) 08/16/20 08/16/20 08/17/20 Range/Units 16:41 20:37 05:49 POC Glucose (mg/dL) 188 H 164 H 117 H (75-99) mg/dL 08/17/20 Range/Units 11:50 POC Glucose (mg/dL) 171 H (75-99) mg/dL Microbiology - Last 24 Hours (Table) 08/15/20 19:50 Blood Culture - Preliminary Blood No Growth after 24 hours 08/15/20 20:01 Blood Culture - Preliminary Blood No Growth after 24 hours Assessment and Plan Assessment: 1 Acute hypoxemic respiratory failure secondary to acute CoVID 19 pneumon ia/pneumonitis. Received Tocilizumab. 2 Elevated inflammatory markers secondary to above 3 Osteoarthritis 4 Hypertension 5 Hyperlipidemia 6 Diabetes mellitus 7 Hypothyroidism, previous right thyroidectomy Plan: The patient was seen and evaluated by Dr. Mccabe CT angiogram reviewed, no pulmonary embolism but diffuse infiltrates Currently on AirVo high flow at 60 L and 90% FiO2 Continue dexamethasone, Lovenox, vitamin supplements Received tocilizumab Repeat inflammatory markers in the a.m. We'll continue to follow and make further recommendations based on her clinical status I, the cosigning physician, performed a history & physical examination of the patient. Lungs sounds with coarse crackles in the bilateral bases. Maintaining good O2 saturations in the 90s on AirVo high flow oxygen at 60 L and 90% FiO2. I discussed the assessment and plan of care with my nurse practitioner, Aria Turner. I attest to the above note as dictated by her.
--- NOTE | 2020-08-17 15:30 | P.PN ---
Subjective Progress Note Date: 08/17/20 Pt reports feeling better than admission, but still weak and dyspneic. Objective - Vital Signs Vital signs: Vital Signs Temp 97.5 F L 08/17/20 08:00 Pulse 71 08/17/20 12:00 Resp 20 08/17/20 12:00 BP 128/81 08/17/20 12:00 Pulse Ox 96 08/17/20 12:00 Intake & Output 08/16/20 08/17/20 08/17/20 18:59 06:59 18:59 Intake Total 240 118 Output Total 600 200 Balance -600 40 118 Weight 65 kg Intake: Oral 240 118 Output: Urine 300 Stool 300 200 Other: Voiding Method Bedpan Diaper # Voids 1 # Bowel Movements 3 - Exam Gen: awake, alert HEENT: normocephalic, atraumatic, good hearing acuity, moist mucous membranes Resp: good air exchange, breathing with mild distress with no accessory muscle use CVS: good distal perfusion x 4, GI: soft, NTTP, ND : no SPT, no CVAT, ugarte catheter not present MSK: no pitting edema, no clubbing Neuro: non-focal, moving all extremities Psych: cooperative, euthymic mood - Labs CBC & Chem 7: 08/16/20 10:50 08/16/20 10:50 Labs: Abnormal Lab Results - Last 24 Hours (Table) 08/16/20 08/16/20 08/17/20 Range/Units 16:41 20:37 05:49 POC Glucose (mg/dL) 188 H 164 H 117 H (75-99) mg/dL 08/17/20 Range/Units 11:50 POC Glucose (mg/dL) 171 H (75-99) mg/dL Microbiology - Last 24 Hours (Table) 08/15/20 19:50 Blood Culture - Preliminary Blood No Growth after 24 hours 08/15/20 20:01 Blood Culture - Preliminary Blood No Growth after 24 hours Assessment and Plan Assessment: acute hypoxic respiratory failure with ARDS COIVD pneumonia history of colitis chronic mild anemia hyponatremia hypothyroid history of hypertension and hyperlipidemia plan supportive care imaging and labs reviewed pulm consult started on decadron day 06/21 s/p actemra started ceftriaxone/azithromycin follow up inflammatory markers d dimer, LDH ferritin , CRP continue home meds lovenox daily sq currently on airvo , titrate as needed to keep oxygen sat >90% IV fluid hydration gentle with normal saline CODE STATUS: Full code DVT prophylaxis: Lovenox subcu daily Discussed with: Patient, ER, RN Anticipated length of stay more than [address]: Guarded prognosis pending clinical course
[2020-08-17 17:02] LABS: Glucose,Whole Blood 183 mg/dL (75-99)
[2020-08-17] MEDS: ATORVASTATIN 20 MG TAB PO SCH (19:55)
[2020-08-17 21:14] LABS: Glucose,Whole Blood 200 mg/dL (75-99)
[2020-08-18] MEDS: LEVOTHYROXINE 88 MCG TAB PO SCH (05:58)
[2020-08-18] MEDS: LOPERAMIDE 2 MG CAP PO PRN (05:58)
[2020-08-18] MEDS: DICYCLOMINE 20 MG TAB PO PRN ×2 (05:58→20:46)
[2020-08-18] MEDS: INSULIN ASPART (NovoLOG) 100 UNIT/ML VIAL SQ SCH ×3 (06:15→18:07)
[2020-08-18 06:56] LABS: Glucose,Whole Blood 107 mg/dL (75-99)
[2020-08-18 07:08] LABS: C Reactive Protein 42.5 mg/L (<10.0)
[2020-08-18] MEDS: LORATADINE 10 MG TAB PO SCH (10:27)
[2020-08-18] MEDS: DEXAMETHASONE SOD PHOSPHATE 10 MG/ML 1 ML VIAL IV SCH (10:27)
[2020-08-18] MEDS: FERROUS SULFATE 325 MG TAB PO SCH (10:28)
[2020-08-18] MEDS: ENOXAPARIN 40 MG/0.4 ML SYRINGE SQ SCH (10:28)
[2020-08-18] MEDS: ASCORBIC ACID 500 MG TAB PO SCH (10:28)
[2020-08-18] MEDS: BALSALAZIDE DISODIUM 750 MG CAPSULE PO SCH ×3 (10:28→20:47)
[2020-08-18] MEDS: PREGABALIN 75 MG CAP PO SCH ×2 (10:28→20:46)
[2020-08-18] MEDS: ZINC SULFATE 220 MG CAP PO SCH (10:28)
[2020-08-18] MEDS: CHOLECALCIFEROL 25 MCG (1000 IU) TABLET PO SCH (10:28)
[2020-08-18] MEDS: SODIUM CHLORIDE 0.9% 1,000 ML IV SCH ×2 (10:29→18:07)
[2020-08-18] MEDS: FLUTICASONE 50MCG/SPRAY NASAL 16GM EA NOSTRIL SCH (10:30)
--- NOTE | 2020-08-18 11:38 | P.PN ---
Subjective Progress Note Date: 08/18/20 Pt reports feeling a bit better, but no improvement in oxygenation requirement. Objective - Vital Signs Vital signs: Vital Signs Temp 98 F 08/18/20 08:30 Pulse 86 08/18/20 08:30 Resp 18 08/18/20 08:30 BP 134/81 08/18/20 04:00 Pulse Ox 94 L 08/18/20 08:30 Intake & Output 08/17/20 08/18/20 08/18/20 18:59 06:59 18:59 Intake Total 594 200 240 Output Total 550 200 Balance 44 0 240 Weight 55 kg Intake: Intake, IV Titration 200 Amount Sodium Chloride 0.9% 1, 200 000 ml @ 100 mls/hr IV . Q10H AKANKSHA Rx#:[id number] Oral 594 240 Output: Urine 550 Stool 200 Other: # Voids 1 # Bowel Movements 4 1 - Exam Gen: awake, alert HEENT: normocephalic, atraumatic, good hearing acuity, moist mucous membranes Resp: good air exchange, breathing with mild distress with no accessory muscle use CVS: good distal perfusion x 4, GI: soft, NTTP, ND : no SPT, no CVAT, ugarte catheter not present MSK: no pitting edema, no clubbing Neuro: non-focal, moving all extremities Psych: cooperative, euthymic mood - Labs CBC & Chem 7: 08/16/20 10:50 08/16/20 10:50 Labs: Abnormal Lab Results - Last 24 Hours (Table) 08/17/20 08/17/20 08/17/20 Range/Units 11:50 16:52 21:12 D-Dimer (<0.60) mg/L FEU POC Glucose (mg/dL) 171 H 183 H 200 H (75-99) mg/dL Lactate Dehydrogenase (313-618) U/L C-Reactive Protein (<10.0) mg/L 08/18/20 08/18/20 08/18/20 Range/Units 06:14 06:14 06:22 D-Dimer 0.97 H (<0.60) mg/L FEU POC Glucose (mg/dL) 107 H (75-99) mg/dL Lactate Dehydrogenase 1066 H (313-618) U/L C-Reactive Protein 42.5 H (<10.0) mg/L Microbiology - Last 24 Hours (Table) 08/15/20 19:50 Blood Culture - Preliminary Blood No Growth after 48 hours 08/15/20 20:01 Blood Culture - Preliminary Blood No Growth after 48 hours Assessment and Plan Assessment: acute hypoxic respiratory failure with ARDS COIVD pneumonia history of colitis chronic mild anemia hyponatremia hypothyroid history of hypertension and hyperlipidemia plan supportive care imaging and labs reviewed pulm consult started on decadron day 07/19 s/p actemra started ceftriaxone/azithromycin, d/c'd by pulm team due to low procalcitonin follow up inflammatory markers d dimer, LDH ferritin , CRP continue home meds lovenox daily sq currently on airvo , titrate as needed to keep oxygen sat >90% IV fluid hydration gentle with normal saline CODE STATUS: Full code DVT prophylaxis: Lovenox subcu daily Discussed with: Patient, ER, RN Anticipated length of stay more than [address]: Guarded prognosis pending clinical course
[2020-08-18 11:44] LABS: Glucose,Whole Blood 159 mg/dL (75-99)
[2020-08-18 16:42] LABS: Glucose,Whole Blood 211 mg/dL (75-99)
--- NOTE | 2020-08-18 17:03 | P.PN ---
Subjective Progress Note Date: 08/18/20 Principal diagnosis: CoVID 19 pneumonia This a very pleasant 69-year-old female patient who follows with Dr. Caro as her primary care provider. She has a history of hypertension, hyperlipidemia, hypothyroidism, diabetes mellitus. She had issues with shortness of breath, cough congestion. She tested positive for CoVID 19 on 08/04/2020. She states that's when her symptoms mainly started as well. Since that time the her shortness of breath has increased. She checked her pulse oximeter readings at home and was in the 60s. She came to the emergency room for the same. Chest x- ray does show bilateral patchy infiltrates consistent with CoVID 19 pneumonia. White count 4.3. Hemoglobin 11.3. D-dimer 0.8. Sodium 132. Potassium 4.5. Creatinine 0.49. LDH 1128. C-reactive protein 66. Pro-calcitonin 0.16. [place] virus by PCR detected. She's been initiated on Decadron, Lovenox, vitamin supplements. The patient is seen today 08/17/2020 in follow-up on the selective care unit. She is currently resting in bed. Awake and alert in no acute distress. Feeling just a bit better today compared to yesterday. She is still requiring AirVo high flow oxygen at 60 L and 90% FiO2 to maintain O2 saturations in the 90s. 0.9 normal saline at [address] angiogram revealed no evidence of pulmonary embolism. There is moderately severe bilateral pneumonia, bilateral basilar atelectasis. Blood cultures reveal no growth. She did receive Tocilizumab. Continued on Lovenox, Decadron, vitamin supplements. The patient is seen today 08/18/2020 follow-up on the selective care unit. Currently resting fairly comfortably in bed. She was actually up on the commode briefly. She sat up at the side of the bed. Still quite dyspneic with minimal exertion. Still requiring AirVo high flow oxygen at 60 L and 90% FiO2 to maintain O2 saturations in the low 90s. She's currently afebrile. Hemodynamically stable. Blood culture reveals no growth. D-dimer 0.97. LDH 1066. C-reactive protein 42.5. Blood glucose 211. She remains on vitamin supplements, dexamethasone, Lovenox. 0.9 normal saline at 100 ML's per hour. Objective - Vital Signs Vital signs: Vital Signs Temp 98 F 08/18/20 08:30 Pulse 86 08/18/20 12:30 Resp 20 08/18/20 12:30 BP 130/84 08/18/20 12:30 Pulse Ox 92 L 08/18/20 12:30 Intake & Output 08/17/20 08/18/20 08/18/20 18:59 06:59 18:59 Intake Total 594 200 480 Output Total 550 200 Balance 44 0 480 Weight 55 kg Intake: Intake, IV Titration 200 Amount Sodium Chloride 0.9% 1, 200 000 ml @ 100 mls/hr IV . Q10H AKANKSHA Rx#:[id number] Oral 594 480 Output: Urine 550 Stool 200 Other: # Voids 1 2 # Bowel Movements 4 1 - Exam GENERAL EXAM: Alert, pleasant 69-year-old female, on AirVo high flow oxygen at 60 L and 90% FiO2, in mild respiratory distress. HEAD: Normocephalic. EYES: Normal reaction of pupils, equal size. NOSE: Clear with pink turbinates. THROAT: No erythema or exudates. NECK: No masses, no JVD. CHEST: No chest wall deformity. LUNGS: Equal air entry with crackles in the bilateral bases CVS: S1 and S2 normal with no audible murmur, regular rhythm. ABDOMEN: No hepatosplenomegaly, normal bowel sounds, no guarding or rigidity. SPINE: No scoliosis or deformity SKIN: No rashes CENTRAL NERVOUS SYSTEM: No focal deficits, tone is normal in all 4 extremities. EXTREMITIES: There is no peripheral edema. No clubbing, no cyanosis. Peripheral pulses are intact. - Labs CBC & Chem 7: 08/16/20 10:50 08/16/20 10:50 Labs: Abnormal Lab Results - Last 24 Hours (Table) 08/17/20 08/17/20 08/18/20 Range/Units 16:52 21:12 06:14 D-Dimer 0.97 H (<0.60) mg/L FEU POC Glucose (mg/dL) 183 H 200 H (75-99) mg/dL Lactate Dehydrogenase (313-618) U/L C-Reactive Protein (<10.0) mg/L 08/18/20 08/18/20 08/18/20 Range/Units 06:14 06:22 11:42 D-Dimer (<0.60) mg/L FEU POC Glucose (mg/dL) 107 H 159 H (75-99) mg/dL Lactate Dehydrogenase 1066 H (313-618) U/L C-Reactive Protein 42.5 H (<10.0) mg/L 08/18/20 Range/Units 16:40 D-Dimer (<0.60) mg/L FEU POC Glucose (mg/dL) 211 H (75-99) mg/dL Lactate Dehydrogenase (313-618) U/L C-Reactive Protein (<10.0) mg/L Microbiology - Last 24 Hours (Table) 08/15/20 19:50 Blood Culture - Preliminary Blood No Growth after 48 hours 08/15/20 20:01 Blood Culture - Preliminary Blood No Growth after 48 hours Assessment and Plan Assessment: 1 Acute hypoxemic respiratory failure secondary to acute CoVID 19 pneumonia/pneumonitis. Received Tocilizumab. 2 Elevated inflammatory markers secondary to above 3 Osteoarthritis 4 Hypertension 5 Hyperlipidemia 6 Diabetes mellitus 7 Hypothyroidism, previous right thyroidectomy Plan: The patient was seen and evaluated by Dr. Mccabe Currently on AirVo high flow at 60 L and 90% FiO2 Titrate down the FiO2 as tolerated Continue dexamethasone, Lovenox, vitamin supplements Received tocilizumab We'll continue to follow I, the cosigning physician, performed a history & physical examination of the patient. Lungs sounds with coarse crackles in the bilateral bases. Maintaining good O2 saturations in the 90s on AirVo high flow oxygen at 60 L and 90% FiO2. I discussed the assessment and plan of care with my nurse practitioner, Aria Turner. I attest to the above note as dictated by her.
[2020-08-18] MEDS: ATORVASTATIN 20 MG TAB PO SCH (20:46)
[2020-08-18] MEDS: ACETAMINOPHEN TAB 325 MG TAB PO PRN (20:46)
[2020-08-18 21:17] LABS: Glucose,Whole Blood 211 mg/dL (75-99)
[2020-08-19] MEDS: DICYCLOMINE 20 MG TAB PO PRN ×2 (04:38→21:04)
[2020-08-19 06:25] LABS: Glucose,Whole Blood 104 mg/dL (75-99)
[2020-08-19] MEDS: LOPERAMIDE 2 MG CAP PO PRN (06:27)
[2020-08-19] MEDS: LEVOTHYROXINE 88 MCG TAB PO SCH (06:27)
[2020-08-19] MEDS: SODIUM CHLORIDE 0.9% 1,000 ML IV SCH ×3 (06:27→23:19)
[2020-08-19] MEDS: INSULIN ASPART (NovoLOG) 100 UNIT/ML VIAL SQ SCH ×3 (06:56→18:21)
[2020-08-19] MEDS: CHOLECALCIFEROL 25 MCG (1000 IU) TABLET PO SCH (11:00)
[2020-08-19] MEDS: ASCORBIC ACID 500 MG TAB PO SCH (11:00)
[2020-08-19] MEDS: DEXAMETHASONE SOD PHOSPHATE 10 MG/ML 1 ML VIAL IV SCH (11:00)
[2020-08-19] MEDS: LORATADINE 10 MG TAB PO SCH (11:00)
[2020-08-19] MEDS: PREGABALIN 75 MG CAP PO SCH ×2 (11:00→21:04)
[2020-08-19] MEDS: ZINC SULFATE 220 MG CAP PO SCH (11:00)
[2020-08-19] MEDS: FLUTICASONE 50MCG/SPRAY NASAL 16GM EA NOSTRIL SCH (11:00)
[2020-08-19] MEDS: FERROUS SULFATE 325 MG TAB PO SCH (11:00)
[2020-08-19] MEDS: BALSALAZIDE DISODIUM 750 MG CAPSULE PO SCH ×3 (11:01→23:16)
[2020-08-19] MEDS: ENOXAPARIN 40 MG/0.4 ML SYRINGE SQ SCH (11:08)
[2020-08-19 11:55] LABS: Glucose,Whole Blood 180 mg/dL (75-99)
--- NOTE | 2020-08-19 12:18 | P.PN ---
Subjective Progress Note Date: 08/19/20 Continues to feel stable, but does get dyspneic with minimal exertion. Objective - Vital Signs Vital signs: Vital Signs Temp 97.8 F 08/19/20 07:47 Pulse 98 08/19/20 07:47 Resp 18 08/19/20 07:47 BP 124/80 08/19/20 07:47 Pulse Ox 92 L 08/19/20 07:47 Intake & Output 08/18/20 08/19/20 08/19/20 18:59 06:59 18:59 Intake Total 720 236 Output Total 200 50 Balance 720 -200 186 Weight 62.5 kg Intake: Oral 720 236 Output: Stool 200 50 Other: # Voids 2 # Bowel Movements 1 0 - Exam Gen: awake, alert HEENT: normocephalic, atraumatic, good hearing acuity, moist mucous membranes Resp: good air exchange, breathing with mild distress with no accessory muscle use CVS: good distal perfusion x 4, GI: soft, NTTP, ND : no SPT, no CVAT, ugarte catheter not present MSK: no pitting edema, no clubbing Neuro: non-focal, moving all extremities Psych: cooperative, euthymic mood - Labs CBC & Chem 7: 08/16/20 10:50 08/16/20 10:50 Labs: Abnormal Lab Results - Last 24 Hours (Table) 08/18/20 08/18/20 08/19/20 Range/Units 16:40 21:06 06:23 POC Glucose (mg/dL) 211 H 211 H 104 H (75-99) mg/dL 08/19/20 Range/Units 11:45 POC Glucose (mg/dL) 180 H (75-99) mg/dL Microbiology - Last 24 Hours (Table) 08/15/20 19:50 Blood Culture - Preliminary Blood No Growth after 72 hours 08/15/20 20:01 Blood Culture - Preliminary Blood No Growth after 72 hours Assessment and Plan Assessment: acute hypoxic respiratory failure with ARDS COIVD pneumonia history of colitis chronic mild anemia hyponatremia hypothyroid history of hypertension and hyperlipidemia plan supportive care imaging and labs reviewed pulm consult started on decadron day 08/19 s/p actemra started ceftriaxone/azithromycin, d/c'd by pulm team due to low procalcitonin follow up inflammatory markers d dimer, LDH ferritin , CRP continue home meds lovenox daily sq currently on airvo , titrate as needed to keep oxygen sat >90% IV fluid hydration gentle with normal saline CODE STATUS: Full code DVT prophylaxis: Lovenox subcu daily Discussed with: Patient, ER, RN Anticipated length of stay more than [address]: Guarded prognosis pending clinical course
--- NOTE | 2020-08-19 14:44 | XR ---
EXAMINATION TYPE: XR chest 1V portable DATE OF EXAM: 08/19/2020 COMPARISON: 08/15/2020. HISTORY: Difficulty in breathing. TECHNIQUE: Single frontal view of the chest is obtained. FINDINGS: There is increased moderate right lung peripheral opacity and additional bibasilar patchy opacities. No pleural effusion, or pneumothorax seen. The cardiac silhouette size is within normal l imits. The osseous structures are intact. IMPRESSION: Worsening bibasilar and peripheral right lung infiltrates.
--- NOTE | 2020-08-19 16:22 | P.PN ---
Subjective Progress Note Date: 08/19/20 Principal diagnosis: CoVID 19 pneumonia This a very pleasant 69-year-old female patient who follows with Dr. Caro as her primary care provider. She has a history of hypertension, hyperlipidemia, hypothyroidism, diabetes mellitus. She had issues with shortness of breath, cough congestion. She tested positive for CoVID 19 on 08/04/2020. She states that's when her symptoms mainly started as well. Since that time the her shortness of breath has increased. She checked her pulse oximeter readings at home and was in the 60s. She came to the emergency room for the same. Chest x- ray does show bilateral patchy infiltrates consistent with CoVID 19 pneumonia. White count 4.3. Hemoglobin 11.3. D-dimer 0.8. Sodium 132. Potassium 4.5. Creatinine 0.49. LDH 1128. C-reactive protein 66. Pro-calcitonin 0.16. [place] virus by PCR detected. She's been initiated on Decadron, Lovenox, vitamin supplements. The patient is seen today 08/17/2020 in follow-up on the selective care unit. She is currently resting in bed. Awake and alert in no acute distress. Feeling just a bit better today compared to yesterday. She is still requiring AirVo high flow oxygen at 60 L and 90% FiO2 to maintain O2 saturations in the 90s. 0.9 normal saline at [address] angiogram revealed no evidence of pulmonary embolism. There is moderately severe bilateral pneumonia, bilateral basilar atelectasis. Blood cultures reveal no growth. She did receive Tocilizumab. Continued on Lovenox, Decadron, vitamin supplements. The patient is seen today 08/18/2020 follow-up on the selective care unit. Currently resting fairly comfortably in bed. She was actually up on the commode briefly. She sat up at the side of the bed. Still quite dyspneic with minimal exertion. Still requiring AirVo high flow oxygen at 60 L and 90% FiO2 to maintain O2 saturations in the low 90s. She's currently afebrile. Hemodynamically stable. Blood culture reveals no growth. D-dimer 0.97. LDH 1066. C-reactive protein 42.5. Blood glucose 211. She remains on vitamin supplements, dexamethasone, Lovenox. 0.9 normal saline at 100 ML's per hour. The patient is seen today 08/19/2020 follow-up on the selective care unit. She is currently lying in bed. Awake and alert in no acute distress. She was not tolerating the AirVo earlier today and is now requiring BiPAP at 100% FiO2 12/6 maintain O2 saturations in the 90s, currently 97%. Chest x-ray does reveal worsening bibasilar and peripheral right lung infiltrates. She has 0.9 normal saline at 50 MLS per hour. Blood cultures reveal no growth. Blood glucose 180. She remains on vitamin supplements, dexamethasone, Lovenox. Objective - Vital Signs Vital signs: Vital Signs Temp 96.7 F L 08/19/20 16:08 Pulse 94 08/19/20 16:08 Resp 30 H 08/19/20 16:08 BP 132/91 08/19/20 16:08 Pulse Ox 96 08/19/20 16:08 Intake & Output 08/18/20 08/19/20 08/19/20 18:59 06:59 18:59 Intake Total 720 646 Output Total 200 350 Balance 720 -200 296 Weight 62.5 kg Intake: IV 410 Invasive Line 1 10 Sodium Chloride 0.9% 1, 400 000 ml @ 100 mls/hr IV . Q10H AKANKSHA Rx#:[id number] Oral 720 236 Output: Urine 300 Stool 200 50 Other: # Voids 2 # Bowel Movements 1 0 - Exam GENERAL EXAM: Alert, pleasant 69-year-old female, on BiPAP 12/6 and 100% FiO2, in mild respiratory distress. HEAD: Normocephalic. EYES: Normal reaction of pupils, equal size. NOSE: Clear with pink turbinates. THROAT: No erythema or exudates. NECK: No masses, no JVD. CHEST: No chest wall deformity. LUNGS: Equal air entry with crackles in the bilateral bases CVS: S1 and S2 normal with no audible murmur, regular rhythm. ABDOMEN: No hepatosplenomegaly, normal bowel sounds, no guarding or rigidity. SPINE: No scoliosis or deformity SKIN: No rashes CENTRAL NERVOUS SYSTEM: No focal deficits, tone is normal in all 4 extremities. EXTREMITIES: There is no peripheral edema. No clubbing, no cyanosis. Peripheral pulses are intact. - Labs CBC & Chem 7: 08/16/20 10:50 08/16/20 10:50 Labs: Abnormal Lab Results - Last 24 Hours (Table) 08/18/20 08/18/20 08/19/20 Range/Units 16:40 21:06 06:23 POC Glucose (mg/dL) 211 H 211 H 104 H (75-99) mg/dL 08/19/20 Range/Units 11:45 POC Glucose (mg/dL) 180 H (75-99) mg/dL Microbiology - Last 24 Hours (Table) 08/15/20 19:50 Blood Culture - Preliminary Blood No Growth after 72 hours 08/15/20 20:01 Blood Culture - Preliminary Blood No Growth after 72 hours Assessment and Plan Assessment: 1 Acute hypoxemic respiratory failure secondary to acute CoVID 19 pneumonia/pneumonitis. Received Tocilizumab. 2 Elevated inflammatory markers secondary to above 3 Osteoarthritis 4 Hypertension 5 Hyperlipidemia 6 Diabetes mellitus 7 Hypothyroidism, previous right thyroidectomy Plan: The patient was seen and evaluated by Dr. Mccabe Chest x-ray revealed no improvement Currently on BiPAP 04/16 and 100% FiO2 Titrate down the FiO2 as tolerated Continue dexamethasone, Lovenox, vitamin supplements Received tocilizumab We'll continue to follow I, the cosigning physician, performed a history & physical examination of the p atient. Lungs sounds with coarse crackles in the bilateral bases. Maintaining good O2 saturations in the 90s on AirVo high flow oxygen at 60 L and 90% FiO2. I discussed the assessment and plan of care with my nurse practitioner, Aria Turner. I attest to the above note as dictated by her.
[2020-08-19 17:15] LABS: Glucose,Whole Blood 215 mg/dL (75-99)
[2020-08-19 21:01] LABS: Glucose,Whole Blood 166 mg/dL (75-99)
[2020-08-19] MEDS: ATORVASTATIN 20 MG TAB PO SCH (21:04)
[2020-08-20 06:54] LABS: Glucose,Whole Blood 80 mg/dL (75-99)
[2020-08-20] MEDS: LEVOTHYROXINE 88 MCG TAB PO SCH (06:56)
[2020-08-20] MEDS: INSULIN ASPART (NovoLOG) 100 UNIT/ML VIAL SQ SCH ×3 (06:58→17:05)
[2020-08-20] MEDS: PREGABALIN 75 MG CAP PO SCH ×2 (08:24→21:04)
[2020-08-20] MEDS: ASCORBIC ACID 500 MG TAB PO SCH (08:24)
[2020-08-20] MEDS: DEXAMETHASONE SOD PHOSPHATE 10 MG/ML 1 ML VIAL IV SCH (08:24)
[2020-08-20] MEDS: FERROUS SULFATE 325 MG TAB PO SCH (08:24)
[2020-08-20] MEDS: ZINC SULFATE 220 MG CAP PO SCH (08:24)
[2020-08-20] MEDS: CHOLECALCIFEROL 25 MCG (1000 IU) TABLET PO SCH (08:25)
[2020-08-20] MEDS: BALSALAZIDE DISODIUM 750 MG CAPSULE PO SCH ×3 (08:25→21:04)
[2020-08-20] MEDS: ENOXAPARIN 40 MG/0.4 ML SYRINGE SQ SCH (08:25)
[2020-08-20] MEDS: LORATADINE 10 MG TAB PO SCH (08:25)
[2020-08-20] MEDS: FLUTICASONE 50MCG/SPRAY NASAL 16GM EA NOSTRIL SCH (08:26)
[2020-08-20] MEDS: SODIUM CHLORIDE 0.9% 1,000 ML IV SCH ×2 (08:26→17:18)
[2020-08-20 11:56] LABS: Glucose,Whole Blood 298 mg/dL (75-99)
--- NOTE | 2020-08-20 13:17 | P.PN ---
Subjective Progress Note Date: 08/20/20 Pt continues to have high oxygen requirement and dyspnea with minimal exertion. Has required rescue BIPAP starting yesterday. Objective - Vital Signs Vital signs: Vital Signs Temp 97.6 F 08/20/20 08:00 Pulse 86 08/20/20 08:00 Resp 30 H 08/20/20 08:00 BP 129/84 08/20/20 08:00 Pulse Ox 93 L 08/20/20 08:00 Intake & Output 08/19/20 08/20/20 08/20/20 18:59 06:59 18:59 Intake Total 646 130 267 Output Total 350 Balance 296 130 267 Weight 63 kg Intake: IV 410 30 30 Invasive Line 1 10 Invasive Line 2 30 30 Sodium Chloride 0.9% 1, 400 000 ml @ 100 mls/hr IV . Q10H [facility] Rx#:[id number] Intake, IV Titration 100 Amount Sodium Chloride 0.9% 1, 100 000 ml @ 100 mls/hr IV . Q10H [facility] Rx#:[id number] Oral 236 237 Output: Urine 300 Stool 50 - Exam Gen: awake, alert HEENT: normocephalic, atraumatic, good hearing acuity, moist mucous membranes Resp: good air exchange, breathing with mild distress with no accessory muscle use CVS: good distal perfusion x 4, GI: soft, NTTP, ND : no SPT, no CVAT, ugarte catheter not present MSK: no pitting edema, no clubbing Neuro: non-focal, moving all extremities Psych: cooperative, euthymic mood - Labs CBC & Chem 7: 08/16/20 10:50 08/16/20 10:50 Labs: Abnormal Lab Results - Last 24 Hours (Table) 08/19/20 08/19/20 08/20/20 Range/Units 17:00 20:40 11:45 POC Glucose (mg/dL) 215 H 166 H 298 H (75-99) mg/dL Microbiology - Last 24 Hours (Table) 08/15/20 19:50 Blood Culture - Preliminary Blood No Growth after 96 hours 08/15/20 20:01 Blood Culture - Preliminary Blood No Growth after 96 hours Assessment and Plan Assessment: acute hypoxic respiratory failure with ARDS COIVD pneumonia history of colitis chronic mild anemia hyponatremia hypothyroid history of hypertension and hyperlipidemia plan supportive care imaging and labs reviewed pulm consult started on decadron day 09/18 s/p actemra started ceftriaxone/azithromycin, d/c'd by pulm team due to low procalcitonin follow up inflammatory markers d dimer, LDH ferritin , CRP continue home meds lovenox daily sq currently on BIPAP , titrate as needed to keep oxygen sat >90% IV fluid hydration gentle with normal saline CODE STATUS: Full code DVT prophylaxis: Lovenox subcu daily Discussed with: Patient, ER, RN Anticipated length of stay more than [address]: Guarded prognosis pending clinical course
--- NOTE | 2020-08-20 16:02 | P.PN ---
Subjective Progress Note Date: 08/20/20 Principal diagnosis: CoVID 19 pneumonia This a very pleasant 69-year-old female patient who follows with Dr. Caro as her primary care provider. She has a history of hypertension, hyperlipidemia, hypothyroidism, diabetes mellitus. She had issues with shortness of breath, cough congestion. She tested positive for CoVID 19 on 08/04/2020. She states that's when her symptoms mainly started as well. Since that time the her shortness of breath has increased. She checked her pulse oximeter readings at home and was in the 60s. She came to the emergency room for the same. Chest x- ray does show bilateral patchy infiltrates consistent with CoVID 19 pneumonia. White count 4.3. Hemoglobin 11.3. D-dimer 0.8. Sodium 132. Potassium 4.5. Creatinine 0.49. LDH 1128. C-reactive protein 66. Pro-calcitonin 0.16. [place] virus by PCR detected. She's been initiated on Decadron, Lovenox, vitamin supplements. The patient is seen today 08/17/2020 in follow-up on the selective care unit. She is currently resting in bed. Awake and alert in no acute distress. Feeling just a bit better today compared to yesterday. She is still requiring AirVo high flow oxygen at 60 L and 90% FiO2 to maintain O2 saturations in the 90s. 0.9 normal saline at [address] angiogram revealed no evidence of pulmonary embolism. There is moderately severe bilateral pneumonia, bilateral basilar atelectasis. Blood cultures reveal no growth. She did receive Tocilizumab. Continued on Lovenox, Decadron, vitamin supplements. The patient is seen today 08/18/2020 follow-up on the selective care unit. Currently resting fairly comfortably in bed. She was actually up on the commode briefly. She sat up at the side of the bed. Still quite dyspneic with minimal exertion. Still requiring AirVo high flow oxygen at 60 L and 90% FiO2 to maintain O2 saturations in the low 90s. She's currently afebrile. Hemodynamically stable. Blood culture reveals no growth. D-dimer 0.97. LDH 1066. C-reactive protein 42.5. Blood glucose 211. She remains on vitamin supplements, dexamethasone, Lovenox. 0.9 normal saline at 100 ML's per hour. The patient is seen today 08/19/2020 follow-up on the selective care unit. She is currently lying in bed. Awake and alert in no acute distress. She was not tolerating the AirVo earlier today and is now requiring BiPAP at 100% FiO2 12/6 maintain O2 saturations in the 90s, currently 97%. Chest x-ray does reveal worsening bibasilar and peripheral right lung infiltrates. She has 0.9 normal saline at 50 MLS per hour. Blood cultures reveal no growth. Blood glucose 180. She remains on vitamin supplements, dexamethasone, Lovenox. The patient is seen today 08/20/2020 in follow-up on the selective care unit. She is currently sitting up in bed. Awake and alert in no acute distress. Feeling a bit stronger today. She is on BiPAP still at 12/6 and 90% FiO2 and maintaining O2 saturation in the 90s. She was off for lunch. Drinking Glucerna. Requiring less time to recover. She remains on Decadron, Lovenox, vitamin supplements. 0.9 normal satting at 100 ML's per hour. Objective - Vital Signs Vital signs: Vital Signs Temp 98.1 F 08/20/20 12:00 Pulse 87 08/20/20 12:00 Resp 32 H 08/20/20 12:00 BP 130/88 08/20/20 12:00 Pulse Ox 93 L 08/20/20 12:00 Intake & Output 08/19/20 08/20/20 08/20/20 18:59 06:59 18:59 Intake Total 477 189 8807 Output Total 350 200 Balance 337 257 1864 Weight 63 kg Intake: IV 410 30 840 Invasive Line 1 10 Invasive Line 2 30 40 Sodium Chloride 0.9% 1, 400 800 000 ml @ 100 mls/hr IV . Q10H [facility] Rx#:[id number] Intake, IV Titration 100 Amount Sodium Chloride 0.9% 1, 100 000 ml @ 100 mls/hr IV . Q10H [facility] Rx#:[id number] Oral 236 474 Output: Urine 300 200 Stool 50 - Exam GENERAL EXAM: Alert, pleasant 69-year-old female, on BiPAP 12/6 and 90% FiO2, in mild respiratory distress. HEAD: Normocephalic. EYES: Normal reaction of pupils, equal size. NOSE: Clear with pink turbinates. THROAT: No erythema or exudates. NECK: No masses, no JVD. CHEST: No chest wall deformity. LUNGS: Equal air entry with crackles in the bilateral bases CVS: S1 and S2 normal with no audible murmur, regular rhythm. ABDOMEN: No hepatosplenomegaly, normal bowel sounds, no guarding or rigidity. SPINE: No scoliosis or deformity SKIN: No rashes CENTRAL NERVOUS SYSTEM: No focal deficits, tone is normal in all 4 extremities. EXTREMITIES: There is no peripheral edema. No clubbing, no cyanosis. Peripheral pulses are intact. - Labs CBC & Chem 7: 08/16/20 10:50 08/16/20 10:50 Labs: Abnormal Lab Results - Last 24 Hours (Table) 08/19/20 08/19/20 08/20/20 Range/Units 17:00 20:40 11:45 POC Glucose (mg/dL) 215 H 166 H 298 H (75-99) mg/dL Microbiology - Last 24 Hours (Table) 08/15/20 19:50 Blood Culture - Preliminary Blood No Growth after 96 hours 08/15/20 20:01 Blood Culture - Preliminary Blood No Growth after 96 hours Assessment and Plan Assessment: 1 Acute hypoxemic respiratory failure secondary to acute CoVID 19 pneumonia/pneumonitis. Received Tocilizumab. 2 Elevated inflammatory markers secondary to above 3 Osteoarthritis 4 Hypertension 5 Hyperlipidemia 6 Diabetes mellitus 7 Hypothyroidism, previous right thyroidectomy Plan: The patient was seen and evaluated by Dr. Mccabe Currently on BiPAP 12/6 and 90% FiO2 Titrate down the FiO2 as tolerated Continue dexamethasone, Lovenox, vitamin supplements Increase her activity as tolerated We'll continue to follow I, the cosigning physician, performed a history & physical examination of the patient. Lungs sounds with coarse crackles in the bilateral bases. Maintaining good O2 saturations in the 90s on BiPap 12/6 and 90% FiO2. I discussed the assessment and plan of care with my nurse practitioner, Aria Turner. I attest to the above note as dictated by her.
[2020-08-20 16:51] LABS: Glucose,Whole Blood 244 mg/dL (75-99)
[2020-08-20 20:02] LABS: Glucose,Whole Blood 248 mg/dL (75-99)
[2020-08-20] MEDS: ATORVASTATIN 20 MG TAB PO SCH (21:04)
[2020-08-20] MEDS: BENZONATATE 100 MG CAP PO PRN (21:04)
[2020-08-21 06:09] LABS: Glucose,Whole Blood 139 mg/dL (75-99)
[2020-08-21] MEDS: INSULIN ASPART (NovoLOG) 100 UNIT/ML VIAL SQ SCH ×3 (06:33→17:38)
[2020-08-21] MEDS: SODIUM CHLORIDE 0.9% 1,000 ML IV SCH ×2 (06:33→17:39)
[2020-08-21 08:22] LABS: C Reactive Protein 12.1 mg/L (<10.0)
[2020-08-21] MEDS ORDERED: LORazepam 2 MG/ML INJ IV STA (09:11)
[2020-08-21] MEDS: ENOXAPARIN 40 MG/0.4 ML SYRINGE SQ SCH (09:46)
[2020-08-21] MEDS: LEVOTHYROXINE 88 MCG TAB PO SCH (09:46)
[2020-08-21] MEDS: ZINC SULFATE 220 MG CAP PO SCH (09:47)
[2020-08-21] MEDS: BALSALAZIDE DISODIUM 750 MG CAPSULE PO SCH ×3 (09:47→21:17)
[2020-08-21] MEDS: LORATADINE 10 MG TAB PO SCH (09:47)
[2020-08-21] MEDS: ASCORBIC ACID 500 MG TAB PO SCH (09:47)
[2020-08-21] MEDS: PREGABALIN 75 MG CAP PO SCH ×2 (09:47→21:14)
[2020-08-21] MEDS: FERROUS SULFATE 325 MG TAB PO SCH (09:47)
[2020-08-21] MEDS: DEXAMETHASONE SOD PHOSPHATE 10 MG/ML 1 ML VIAL IV SCH (09:47)
[2020-08-21] MEDS: CHOLECALCIFEROL 25 MCG (1000 IU) TABLET PO SCH (09:47)
[2020-08-21] MEDS: FLUTICASONE 50MCG/SPRAY NASAL 16GM EA NOSTRIL SCH (09:48)
--- NOTE | 2020-08-21 10:59 | P.PN ---
Subjective Progress Note Date: 08/21/20 This a very pleasant 69-year-old female patient who follows with Dr. Caro as her primary care provider. She has a history of hypertension, hyperlipidemia, hypothyroidism, diabetes mellitus. She had issues with shortness of breath, cough congestion. She tested positive for CoVID 19 on 08/04/2020. She states that's when her symptoms mainly started as well. Since that time the her shortness of breath has increased. She checked her pulse oximeter readings at home and was in the 60s. She came to the emergency room for the same. Chest x- ray does show bilateral patchy infiltrates consistent with CoVID 19 pneumonia. White count 4.3. Hemoglobin 11.3. D-dimer 0.8. Sodium 132. Potassium 4.5. Creatinine 0.49. LDH 1128. C-reactive protein 66. Pro-calcitonin 0.16. [place] virus by PCR detected. She's been initiated on Decadron, Lovenox, vitamin supplements. The patient is seen today 08/17/2020 in follow-up on the selective care unit. She is currently resting in bed. Awake and alert in no acute distress. Feeling just a bit better today compared to yesterday. She is still requiring AirVo high flow oxygen at 60 L and 90% FiO2 to maintain O2 saturations in the 90s. 0.9 normal saline at [address] angiogram revealed no evidence of pulmonary embolism. There is moderately severe bilateral pneumonia, bilateral basilar atelectasis. Blood cultures reveal no growth. She did receive Tocilizumab. Continued on Lovenox, Decadron, vitamin supplements. The patient is seen today 08/18/2020 follow-up on the selective care unit. Currently resting fairly comfortably in bed. She was actually up on the commode briefly. She sat up at the side of the bed. Still quite dyspneic with minimal exertion. Still requiring AirVo high flow oxygen at 60 L and 90% FiO2 to mainta in O2 saturations in the low 90s. She's currently afebrile. Hemodynamically stable. Blood culture reveals no growth. D-dimer 0.97. LDH 1066. C-reactive protein 42.5. Blood glucose 211. She remains on vitamin supplements, dexamethasone, Lovenox. 0.9 normal saline at 100 ML's per hour. The patient is seen today 08/19/2020 follow-up on the selective care unit. She is currently lying in bed. Awake and alert in no acute distress. She was not tolerating the AirVo earlier today and is now requiring BiPAP at 100% FiO2 12/6 maintain O2 saturations in the 90s, currently 97%. Chest x-ray does reveal worsening bibasilar and peripheral right lung infiltrates. She has 0.9 normal saline at 50 MLS per hour. Blood cultures reveal no growth. Blood glucose 180. She remains on vitamin supplements, dexamethasone, Lovenox. The patient is seen today 08/20/2020 in follow-up on the selective care unit. She is currently sitting up in bed. Awake and alert in no acute distress. Feeling a bit stronger today. She is on BiPAP still at 12/6 and 90% FiO2 and maintaining O2 saturation in the 90s. She was off for lunch. Drinking Glucerna. Requiring less time to recover. She remains on Decadron, Lovenox, vitamin supplements. 0.9 normal satting at 100 ML's per hour. On 08/21/2020 on seeing the patient for a follow-up regarding her COVID 19 associated pneumonia. The patient is currently on a BiPAP pressure of 12/6 cm of water and FiO2 is being gradually weaned off. Note that the patient's presented to us and she was extremely hypoxic and she was initially placed on high flow oxygen and subsequently she failed and she was transitioned to BiPAP. During the course of the treatment, the patient was given Decadron, Lovenox, Tocilizumab , and a CT angiogram showed bilateral pneumonia without evidence of any pulmonary embolism. The patient currently is on Decadron 6 mg every 24 hours. The patient on Lovenox 40 mg subcu every 24 hours.. On her blood work today, the patient d-dimer of 2.8 with a CRP of 12 and a LDH of 1607. As such, after Vania markers are still quite elevated. Clinically, the patient is still on a BiPAP at the same settings. Her current FiO2 is at 80% and the patient is able to generate a tidal volume of 575 with a respiratory rate of 32. Her curre nt pulse ox is around 90 and her current minute ventilation is around Extina liters per minute. She is awake and alert. She is giving brief interruptions of the BiPAP to take some shakes. Taken and showed and she is also taking Glucerna. Objective - Vital Signs Vital signs: Vital Signs Temp 96.6 F L 08/21/20 04:00 Pulse 96 08/21/20 04:00 Resp 26 H 08/21/20 04:00 BP 143/96 08/21/20 04:00 Pulse Ox 91 L 08/21/20 04:00 Intake & Output 08/20/20 08/21/20 08/21/20 18:59 06:59 18:59 Intake Total 1551 20 Output Total 200 100 Balance 1351 -80 Weight 63 kg 63.5 kg Intake: IV 840 20 Invasive Line 2 40 20 Sodium Chloride 0.9% 1, 800 000 ml @ 100 mls/hr IV . Q10H [facility] Rx#:[id number] Oral 711 Output: Urine 200 Stool 100 Other: Voiding Method Bedpan Diaper # Voids 1 # Bowel Movements 1 - Exam GENERAL EXAM: Alert, pleasant 69-year-old female, on BiPAP 04/16 and 80% FiO2, in mild respiratory distress. HEAD: Normocephalic. EYES: Normal reaction of pupils, equal size. NOSE: Clear with pink turbinates. THROAT: No erythema or exudates. NECK: No masses, no JVD. CHEST: No chest wall deformity. LUNGS: Equal air entry with crackles in the bilateral bases CVS: S1 and S2 normal with no audible murmur, regular rhythm. ABDOMEN: No hepatosplenomegaly, normal bowel sounds, no guarding or rigidity. SPINE: No scoliosis or deformity SKIN: No rashes CENTRAL NERVOUS SYSTEM: No focal deficits, tone is normal in all 4 extremities. EXTREMITIES: There is no peripheral edema. No clubbing, no cyanosis. Peripheral pulses are intact. - Labs CBC & Chem 7: 08/16/20 10:50 08/16/20 10:50 Labs: Abnormal Lab Results - Last 24 Hours (Table) 08/20/20 08/20/20 08/20/20 Range/Units 11:45 16:42 20:00 D-Dimer (<0.60) mg/L FEU POC Glucose (mg/dL) 298 H 244 H 248 H (75-99) mg/dL Lactate Dehydrogenase (313-618) U/L C-Reactive Protein (<10.0) mg/L 08/21/20 08/21/20 08/21/20 Range/Units 06:02 07:12 07:13 D-Dimer 2.82 H (<0.60) mg/L FEU POC Glucose (mg/dL) 139 H (75-99) mg/dL Lactate Dehydrogenase 1607 H (313-618) U/L C-Reactive Protein 12.1 H (<10.0) mg/L Microbiology - Last 24 Hours (Table) 08/15/20 19:50 Blood Culture - Preliminary Blood No Growth after 120 hours 08/15/20 20:01 Blood Culture - Preliminary Blood No Growth after 120 hours Assessment and Plan Plan: 1 Acute hypoxemic respiratory failure secondary to acute CoVID 19 pneumonia/pneumonitis. Received Tocilizumab. The patient is currently on Decadron. The patient on Lovenox for DVT prophylaxis. Inflammatory markers are quite elevated and the patient is currently on BiPAP. The patient. High flow and the patient has been transitioned to BiPAP therapy for respiratory support. Patient remains on a BiPAP of 12/6 with an FiO2 of 90%. Her oxidation remains borderline with a pulse ox of above 90% and order of 90-91% on the above- mentioned BiPAP setting. The chest x-ray from 08/19/2020 shows bilateral pulmonary infiltrates with peripheral distribution more so on the right. She is very much BiPAP dependent. 2 Elevated inflammatory markers secondary to above 3 Osteoarthritis 4 Hypertension 5 Hyperlipidemia 6 Diabetes mellitus 7 Hypothyroidism, previous right thyroidectomy Plan: Currently on BiPAP 12/6 and 90% FiO2 Titrate down the FiO2 as tolerated Continue dexamethasone, Lovenox, vitamin supplements Increase her activity as tolerated Inflammatory markers are still elevated for now. The patient had a d-dimer of 2.82. LDH is still elevated. We'll continue to follow
[2020-08-21 12:12] LABS: Glucose,Whole Blood 263 mg/dL (75-99)
--- NOTE | 2020-08-21 15:02 | P.PN ---
Subjective Progress Note Date: 08/21/20 Principal diagnosis: on BIPAP , no cp no abd pain , no vomiting Remains on BiPAP with oxygen requirement. No chest pain no abdominal pain Objective - Vital Signs Vital signs: Vital Signs Temp 97.6 F 08/21/20 12:00 Pulse 112 H 08/21/20 12:00 Resp 21 08/21/20 14:00 BP 126/86 08/21/20 12:00 Pulse Ox 92 L 08/21/20 12:00 Intake & Output 08/20/20 08/21/20 08/21/20 18:59 06:59 18:59 Intake Total 1551 20 20 Output Total 200 100 100 Balance 1351 -80 -80 Weight 63 kg 63.5 kg Intake: IV 840 20 20 Invasive Line 2 40 20 20 Sodium Chloride 0.9% 1, 800 000 ml @ 100 mls/hr IV . Q10H [facility] Rx#:[id number] Oral 711 Output: Urine 200 Stool 100 100 Other: Voiding Method Bedpan Diaper # Voids 1 # Bowel Movements 1 2 - Exam Gen: awake, alert HEENT: normocephalic, atraumatic Resp: Decreased breath sounds, no wheezing CVS: good distal perfusion x 4, GI: soft, NTTP, ND : no SPT, no CVAT MSK: no pitting edema, no clubbing Neuro: non-focal, moving all extremities Psych: cooperative, - Labs CBC & Chem 7: 08/16/20 10:50 08/16/20 10:50 Labs: Abnormal Lab Results - Last 24 Hours (Table) 08/20/20 08/20/20 08/21/20 Range/Units 16:42 20:00 06:02 D-Dimer (<0.60) mg/L FEU POC Glucose (mg/dL) 244 H 248 H 139 H (75-99) mg/dL Lactate Dehydrogenase (313-618) U/L C-Reactive Protein (<10.0) mg/L 08/21/20 08/21/20 08/21/20 Range/Units 07:12 07:13 12:10 D-Dimer 2.82 H (<0.60) mg/L FEU POC Glucose (mg/dL) 263 H (75-99) mg/dL Lactate Dehydrogenase 1607 H (313-618) U/L C-Reactive Protein 12.1 H (<10.0) mg/L Microbiology - Last 24 Hours (Table) 08/15/20 19:50 Blood Culture - Preliminary Blood No Growth after 120 hours 08/15/20 20:01 Blood Culture - Preliminary Blood No Growth after 120 hours Assessment and Plan Plan: acute hypoxic respiratory failure with ARDS: Continue Rocephin and Zithromax, dexamethasone oxygen and bronchodilators. Continue BiPAP. Appreciate pulmonology input COIVD pneumonia : Continue antibiotics history of colitis chronic mild anemia hyponatremia hypothyroid : Synthroid history of hypertension and hyperlipidemia Diabetes type 2 with hyperglycemia: Continue present sliding scale CODE STATUS: Full code DVT prophylaxis: Lovenox subcu daily Discussed with: Patient, RN Anticipated length of stay more than [address]: Guarded prognosis, we'll monitor.
[2020-08-21 16:56] LABS: Glucose,Whole Blood 248 mg/dL (75-99)
[2020-08-21 20:41] LABS: Glucose,Whole Blood 294 mg/dL (75-99)
[2020-08-21] MEDS: LORazepam 2 MG/ML INJ IV PRN (21:14)
[2020-08-21] MEDS: BENZONATATE 100 MG CAP PO PRN (21:14)
[2020-08-21] MEDS: ATORVASTATIN 20 MG TAB PO SCH (21:14)
[2020-08-22 06:12] LABS: Glucose,Whole Blood 123 mg/dL (75-99)
[2020-08-22] MEDS: INSULIN ASPART (NovoLOG) 100 UNIT/ML VIAL SQ SCH ×4 (06:33→20:53)
[2020-08-22] MEDS: LEVOTHYROXINE 88 MCG TAB PO SCH (07:10)
[2020-08-22] MEDS: SODIUM CHLORIDE 0.9% 1,000 ML IV SCH ×3 (07:10→20:55)
[2020-08-22] MEDS: FLUTICASONE 50MCG/SPRAY NASAL 16GM EA NOSTRIL SCH (07:29)
[2020-08-22] MEDS: PREGABALIN 75 MG CAP PO SCH ×2 (08:35→20:53)
[2020-08-22] MEDS: CHOLECALCIFEROL 25 MCG (1000 IU) TABLET PO SCH (08:35)
[2020-08-22] MEDS: BALSALAZIDE DISODIUM 750 MG CAPSULE PO SCH ×3 (08:35→20:54)
[2020-08-22] MEDS: LORATADINE 10 MG TAB PO SCH (08:35)
[2020-08-22] MEDS: DEXAMETHASONE SOD PHOSPHATE 10 MG/ML 1 ML VIAL IV SCH (08:35)
[2020-08-22] MEDS: FERROUS SULFATE 325 MG TAB PO SCH (08:35)
[2020-08-22] MEDS: ASCORBIC ACID 500 MG TAB PO SCH (08:35)
[2020-08-22] MEDS: ZINC SULFATE 220 MG CAP PO SCH (08:35)
[2020-08-22 08:36] LABS: ALT 12 U/L (4-34); African American GFR (CKD) >90 (>60 ml/min/1.73 sqM); Albumin 3.5 g/dL (3.5-5.0); Anion Gap 6 mmol/L; Blood Urea Nitrogen 8 mg/dL (7-17); C Reactive Protein 10.5 mg/L (<10.0); Calcium 8.5 mg/dL (8.4-10.2); Carbon Dioxide 29 mmol/L (22-30); Chloride 97 mmol/L (98-107); Glucose 133 mg/dL (74-99); Non-African American GFR(CKD) >90 (>60 ml/min/1.73 sqM); Sodium 132 mmol/L (137-145); Total Bilirubin 0.7 mg/dL (0.2-1.3); Total Protein 7.4 g/dL (6.3-8.2)
[2020-08-22] MEDS: ENOXAPARIN 40 MG/0.4 ML SYRINGE SQ SCH (08:36)
[2020-08-22 08:37] LABS: AST 42 U/L (14-36); Alkaline Phosphatase 76 U/L (38-126); Potassium 4.8 mmol/L (3.5-5.1)
[2020-08-22 08:46] LABS: Anisocytosis Slight; Basophils % (A) 0 %; Eosinophils # (A) 0.2 k/uL (0-0.7); Eosinophils % (A) 2 %; Lymphocytes # (A) 0.7 k/uL (1.0-4.8); Lymphocytes % (A) 9 %; MCHC 35.3 g/dL (31.0-37.0); MCV 79.3 fL (80.0-100.0); Mean Platelet Volume 8.4; Microcytosis Slight; Monocytes # (A) 0.2 k/uL (0-1.0); Monocytes % (A) 3 %; Neutrophils # (A) 6.4 k/uL (1.3-7.7); Neutrophils % (A) 85 %; Platelet Count 358 k/uL (150-450); RDW 16.6 % (11.5-15.5); WBC 7.5 k/uL (3.8-10.6)
[2020-08-22 08:49] LABS: HGB 14.8 gm/dL (11.4-16.0)
[2020-08-22 08:50] LABS: LDH 2076 U/L (313-618)
[2020-08-22] MEDS: LORazepam 2 MG/ML INJ IV PRN ×2 (09:30→21:03)
--- NOTE | 2020-08-22 10:39 | XR ---
EXAMINATION TYPE: XR chest 1V portable DATE OF EXAM: 08/22/2020 Comparison: 08/19/2020 Clinical History: 69 year-old female shortness, covid Findings: Heart upper limits of normal in size. Peripheral opacities throughout the right lung and also at the left base. Opacities similar to slightly worsened. Multiple external artifacts particularly on the ri ght. Impression: Peripheral infiltrates throughout the right lung and additional left basilar infiltrates. These johnson es of COVID pneumonia are similar to slightly worsened.
--- NOTE | 2020-08-22 11:33 | P.PN ---
Subjective Progress Note Date: 08/22/20 This a very pleasant 69-year-old female patient who follows with Dr. Caro as her primary care provider. She has a history of hypertension, hyperlipidemia, hypothyroidism, diabetes mellitus. She had issues with shortness of breath, cough congestion. She tested positive for CoVID 19 on 08/04/2020. She states that's when her symptoms mainly started as well. Since that time the her shortness of breath has increased. She checked her pulse oximeter readings at home and was in the 60s. She came to the emergency room for the same. Chest x- ray does show bilateral patchy infiltrates consistent with CoVID 19 pneumonia. White count 4.3. Hemoglobin 11.3. D-dimer 0.8. Sodium 132. Potassium 4.5. Creatinine 0.49. LDH 1128. C-reactive protein 66. Pro-calcitonin 0.16. [place] virus by PCR detected. She's been initiated on Decadron, Lovenox, vitamin supplements. The patient is seen today 08/17/2020 in follow-up on the selective care unit. She is currently resting in bed. Awake and alert in no acute distress. Feeling just a bit better today compared to yesterday. She is still requiring AirVo high flow oxygen at 60 L and 90% FiO2 to maintain O2 saturations in the 90s. 0.9 normal saline at [address] angiogram revealed no evidence of pulmonary embolism. There is moderately severe bilateral pneumonia, bilateral basilar atelectasis. Blood cultures reveal no growth. She did receive Tocilizumab. Continued on Lovenox, Decadron, vitamin supplements. The patient is seen today 08/18/2020 follow-up on the selective care unit. Currently resting fairly comfortably in bed. She was actually up on the commode briefly. She sat up at the side of the bed. Still quite dyspneic with minimal exertion. Still requiring AirVo high flow oxygen at 60 L and 90% FiO2 to maintain O2 saturations in the low 90s. She's currently afebrile. Hemodynamically stable. Blood culture reveals no growth. D-dimer 0.97. LDH 1066. C-reactive protein 42.5. Blood glucose 211. She remains on vitamin supplements, dexamethasone, Lovenox. 0.9 normal saline at 100 ML's per hour. The patient is seen today 08/19/2020 follow-up on the selective care unit. She is currently lying in bed. Awake and alert in no acute distress. She was not tolerating the AirVo earlier today and is now requiring BiPAP at 100% FiO2 12/6 maintain O2 saturations in the 90s, currently 97%. Chest x-ray does reveal worsening bibasilar and peripheral right lung infiltrates. She has 0.9 normal saline at 50 MLS per hour. Blood cultures reveal no growth. Blood glucose 180. She remains on vitamin supplements, dexamethasone, Lovenox. The patient is seen today 08/20/2020 in follow-up on the selective care unit. She is currently sitting up in bed. Awake and alert in no acute distress. Feeling a bit stronger today. She is on BiPAP still at 12/6 and 90% FiO2 and maintaining O2 saturation in the 90s. She was off for lunch. Drinking Glucerna. Requiring less time to recover. She remains on Decadron, Lovenox, vitamin supplements. 0.9 normal satting at 100 ML's per hour. On 08/21/2020 on seeing the patient for a follow-up regarding her COVID 19 associated pneumonia. The patient is currently on a BiPAP pressure of 12/6 cm of water and FiO2 is being gradually weaned off. Note that the patient's presented to us and she was extremely hypoxic and she was initially placed on high flow oxygen and subsequently she failed and she was transitioned to BiPAP. During the course of the treatment, the patient was given Decadron, Lovenox, Tocilizumab , and a CT angiogram showed bilateral pneumonia without evidence of any pulmonary embolism. The patient currently is on Decadron 6 mg every 24 h ours. The patient on Lovenox 40 mg subcu every 24 hours.. On her blood work today, the patient d-dimer of 2.8 with a CRP of 12 and a LDH of 1607. As such, after Vania markers are still quite elevated. Clinically, the patient is still on a BiPAP at the same settings. Her current FiO2 is at 80% and the patient is able to generate a tidal volume of 575 with a respiratory rate of 32. Her current pulse ox is around 90 and her current minute ventilation is around [place] liters per minute. She is awake and alert. She is giving brief interruptions of the BiPAP to take some shakes. Taken and showed and she is also taking Glucerna. 08/22/2020, which is at the patient's condition decompensating. She is still on a BiPAP at a pressure of 12/6 and earlier this morning the patient some desatu ration and she had been brought up to 100%. The patient is having some labored breathing even on the BiPAP. Her respiratory rates in the mid 40s and the patient is able to generate a tidal volume of 400. Her pulse ox is currently ranging between 85-88%. Heart rate is around 110-120. She is awake and alert and she is communicating. Nevertheless she is an obvious respiratory distress. She remains on Lovenox 40 mg subcu every 24 hours. She is also on Decadron 6 mg IV every 24 hours. IV fluids are running at the rate of 100 mL an hour. On her blood work, most of the labs are within normal limits.LDH level is up to 2076 and a CRP level is up to 10.6. D-dimer is also up to 3.83.. The chest x-ray from today is showing patchy bilateral pulmonary infiltrates on the left, definitely worse on the right with peripheral distribution. The right hemidiaphragm is being lost on today's chest x-ray. Objective - Vital Signs Vital signs: Vital Signs Temp 97.5 F L 08/22/20 08:34 Pulse 120 H 08/22/20 11:11 Resp 36 H 08/22/20 11:11 BP 117/83 08/22/20 08:34 Pulse Ox 85 L 08/22/20 11:11 Intake & Output 08/21/20 08/22/20 08/22/20 18:59 06:59 18:59 Intake Total 731 20 484 Output Total 100 100 Balance 631 -80 484 Weight 62 kg Intake: IV 20 20 10 Invasive Line 2 20 20 10 Oral [id number] Output: Stool 100 100 Other: Voiding Method Bedpan Diaper # Voids 1 1 # Bowel Movements 2 1 1 - Exam GENERAL EXAM: Alert, pleasant 69-year-old female, on BiPAP 12/6 and 100% FiO2, in mild respiratory distress. HEAD: Normocephalic. EYES: Normal reaction of pupils, equal size. NOSE: Clear with pink turbinates. THROAT: No erythema or exudates. NECK: No masses, no JVD. CHEST: No chest wall deformity. LUNGS: Equal air entry with crackles in the bilateral bases CVS: S1 and S2 normal with no audible murmur, regular rhythm. ABDOMEN: No hepatosplenomegaly, normal bowel sounds, no guarding or rigidity. SPINE: No scoliosis or deformity SKIN: No rashes CENTRAL NERVOUS SYSTEM: No focal deficits, tone is normal in all 4 extremities. EXTREMITIES: There is no peripheral edema. No clubbing, no cyanosis. Peripheral pulses are intact. - Labs CBC & Chem 7: 08/22/20 07:06 08/22/20 07:06 Labs: Abnormal Lab Results - Last 24 Hours (Table) 08/21/20 08/21/20 08/21/20 Range/Units 12:10 16:51 20:38 MCV (80.0-100.0) fL RDW (11.5-15.5) % Lymphocytes # (1.0-4.8) k/uL D-Dimer (<0.60) mg/L FEU Sodium (137-145) mmol/L Chloride (98-107) mmol/L Creatinine (0.52-1.04) mg/dL Glucose (74-99) mg/dL POC Glucose (mg/dL) 263 H 248 H 294 H (75-99) mg/dL AST (14-36) U/L Lactate Dehydrogenase (313-618) U/L C-Reactive Protein (<10.0) mg/L 08/22/20 08/22/20 08/22/20 Range/Units 06:07 07:06 07:06 MCV (80.0-100.0) fL RDW (11.5-15.5) % Lymphocytes # (1.0-4.8) k/uL D-Dimer 3.83 H (<0.60) mg/L FEU Sodium 132 L (137-145) mmol/L Chloride 97 L (98-107) mmol/L Creatinine 0.44 L (0.52-1.04) mg/dL Glucose 133 H (74-99) mg/dL POC Glucose (mg/dL) 123 H (75-99) mg/dL AST 42 H (14-36) U/L Lactate Dehydrogenase 2076 H (313-618) U/L C-Reactive Protein 10.5 H (<10.0) mg/L 08/22/20 Range/Units 07:06 MCV 79.3 L (80.0-100.0) fL RDW 16.6 H (11.5-15.5) % Lymphocytes # 0.7 L (1.0-4.8) k/uL D-Dimer (<0.60) mg/L FEU Sodium (137-145) mmol/L Chloride (98-107) mmol/L Creatinine (0.52-1.04) mg/dL Glucose (74-99) mg/dL POC Glucose (mg/dL) (75-99) mg/dL AST (14-36) U/L Lactate Dehydrogenase (313-618) U/L C-Reactive Protein (<10.0) mg/L Microbiology - Last 24 Hours (Table) 08/15/20 19:50 Blood Culture - Final Blood No Growth after 144 hours 08/15/20 20:01 Blood Culture - Final Blood No Growth after 144 hours Assessment and Plan Plan: 1 Acute hypoxemic respiratory failure secondary to acute CoVID 19 pneumoni a/pneumonitis. Received Tocilizumab. The patient is currently on Decadron. The patient on Lovenox for DVT prophylaxis. Inflammatory markers are quite elevated and the patient is currently on BiPAP. The patient. High flow and the patient has been transitioned to BiPAP therapy for respiratory support. Patient remains on a BiPAP of 12/6 with an FiO2 of 90%. Her oxidation remains borderline with a pulse ox of above 90% and order of 90-91% on the above- mentioned BiPAP setting. The chest x-ray from 08/19/2020 shows bilateral pulmonary infiltrates with peripheral distribution more so on the right. She is very much BiPAP dependent. On today's evaluation of 08/14/2020, condition is worse and the patient is still on a BiPAP at a pressure of 12/6 with an FiO2 100%. Unable to come off the BiPAP due to severe desaturation. Unable to eat. Quite weak. Using some excessive muscle breathing and the patient has short of breath hypoxic with pulse ox of 85-86% on BiPAP. 2 Elevated inflammatory markers secondary to above 3 Osteoarthritis 4 Hypertension 5 Hyperlipidemia 6 Diabetes mellitus 7 Hypothyroidism, previous right thyroidectomy Plan: Currently on BiPAP 12/6 and 100% FiO2 Titrate down the FiO2 as tolerated Continue dexamethasone, Lovenox, vitamin supplements Increase her activity as tolerated Inflammatory markers are higher for today and the chest x-ray findings are stable Family decided DNR/DNI CODE STATUS We'll continue the supportive care and would evaluate her progress over the next 24 hours. Unfortunately, she is unable to eat and she is obviously behind un dernutrition. She is progressively getting weak. There is obvious decline in her respiratory status on today's evaluation. Chest x-ray stable.
[2020-08-22 11:49] LABS: Glucose,Whole Blood 254 mg/dL (75-99)
--- NOTE | 2020-08-22 13:22 | P.PN ---
Subjective Progress Note Date: 08/22/20 Principal diagnosis: on BIPAP , no cp no abd pain , no vomiting oxygen requirement increased 100% Family at bedside Patient is still short of breath Objective - Vital Signs Vital signs: Vital Signs Temp 97.5 F L 08/22/20 08:34 Pulse 120 H 08/22/20 11:11 Resp 36 H 08/22/20 11:11 BP 117/83 08/22/20 08:34 Pulse Ox 85 L 08/22/20 11:11 Intake & Output 08/21/20 08/22/20 08/22/20 18:59 06:59 18:59 Intake Total 731 20 484 Output Total 100 100 Balance 631 -80 484 Weight 62 kg Intake: IV 20 20 10 Invasive Line 2 20 20 10 Oral [id number] Output: Stool 100 100 Other: Voiding Method Bedpan Diaper # Voids 1 1 # Bowel Movements 2 1 1 - Exam Gen: awake, alert on BiPAP, short of breath HEENT: normocephalic, atraumatic Resp: Decreased breath sounds, no wheezing CVS: good distal perfusion x 4, GI: soft, NTTP, ND : no SPT, no CVAT MSK: no pitting edema, no clubbing Neuro: non-focal, moving all extremities Psych: cooperative, - Labs CBC & Chem 7: 08/22/20 07:06 08/22/20 07:06 Labs: Abnormal Lab Results - Last 24 Hours (Table) 08/21/20 08/21/20 08/22/20 Range/Units 16:51 20:38 06:07 MCV (80.0-100.0) fL RDW (11.5-15.5) % Lymphocytes # (1.0-4.8) k/uL D-Dimer (<0.60) mg/L FEU Sodium (137-145) mmol/L Chloride (98-107) mmol/L Creatinine (0.52-1.04) mg/dL Glucose (74-99) mg/dL POC Glucose (mg/dL) 248 H 294 H 123 H (75-99) mg/dL AST (14-36) U/L Lactate Dehydrogenase (313-618) U/L C-Reactive Protein (<10.0) mg/L 08/22/20 08/22/20 08/22/20 Range/Units 07:06 07:06 07:06 MCV 79.3 L (80.0-100.0) fL RDW 16.6 H (11.5-15.5) % Lymphocytes # 0.7 L (1.0-4.8) k/uL D-Dimer 3.83 H (<0.60) mg/L FEU Sodium 132 L (137-145) mmol/L Chloride 97 L (98-107) mmol/L Creatinine 0.44 L (0.52-1.04) mg/dL Glucose 133 H (74-99) mg/dL POC Glucose (mg/dL) (75-99) mg/dL AST 42 H (14-36) U/L Lactate Dehydrogenase 2076 H (313-618) U/L C-Reactive Protein 10.5 H (<10.0) mg/L 08/22/20 Range/Units 11:47 MCV (80.0-100.0) fL RDW (11.5-15.5) % Lymphocytes # (1.0-4.8) k/uL D-Dimer (<0.60) mg/L FEU Sodium (137-145) mmol/L Chloride (98-107) mmol/L Creatinine (0.52-1.04) mg/dL Glucose (74-99) mg/dL POC Glucose (mg/dL) 254 H (75-99) mg/dL AST (14-36) U/L Lactate Dehydrogenase (313-618) U/L C-Reactive Protein (<10.0) mg/L Microbiology - Last 24 Hours (Table) 08/15/20 19:50 Blood Culture - Final Blood No Growth after 144 hours 08/15/20 20:01 Blood Culture - Final Blood No Growth after 144 hours Assessment and Plan Plan: acute hypoxic respiratory failure with ARDS: Continue Rocephin and Zithromax, de xamethasone oxygen and bronchodilators. Continue BiPAP. Appreciate pulmonology input. Clinically worse. COIVD pneumonia : Continue antibiotics history of colitis chronic mild anemia hyponatremia hypothyroid : Synthroid history of hypertension and hyperlipidemia Diabetes type 2 with hyperglycemia: Continue present sliding scale CODE STATUS: Full code DVT prophylaxis: Lovenox subcu daily Discussed with: Patient, RN, patient's daughter. Anticipated discharge place: Worsening clinical condition.
[2020-08-22 13:43] VITALS: BMI 25.0
[2020-08-22 16:25] LABS: Glucose,Whole Blood 187 mg/dL (75-99)
[2020-08-22] MEDS: DICYCLOMINE 20 MG TAB PO PRN (19:15)
[2020-08-22] MEDS: LOPERAMIDE 2 MG CAP PO PRN (19:15)
[2020-08-22] MEDS: ACETAMINOPHEN TAB 325 MG TAB PO PRN (19:15)
[2020-08-22 20:04] LABS: Glucose,Whole Blood 219 mg/dL (75-99)
[2020-08-22] MEDS: ATORVASTATIN 20 MG TAB PO SCH (20:53)
[2020-08-23] MEDS: LORazepam 2 MG/ML INJ IV PRN (00:36)
[2020-08-23 06:07] LABS: Glucose,Whole Blood 102 mg/dL (75-99)
[2020-08-23] MEDS: INSULIN ASPART (NovoLOG) 100 UNIT/ML VIAL SQ SCH ×4 (06:10→21:30)
[2020-08-23] MEDS: LEVOTHYROXINE 88 MCG TAB PO SCH (06:10)
[2020-08-23] MEDS: DEXAMETHASONE SOD PHOSPHATE 10 MG/ML 1 ML VIAL IV SCH (08:50)
[2020-08-23] MEDS: FERROUS SULFATE 325 MG TAB PO SCH (08:51)
[2020-08-23] MEDS: ZINC SULFATE 220 MG CAP PO SCH (08:51)
[2020-08-23] MEDS: CHOLECALCIFEROL 25 MCG (1000 IU) TABLET PO SCH (08:51)
[2020-08-23] MEDS: ENOXAPARIN 40 MG/0.4 ML SYRINGE SQ SCH (08:51)
[2020-08-23] MEDS: ASCORBIC ACID 500 MG TAB PO SCH (08:51)
[2020-08-23] MEDS: PREGABALIN 75 MG CAP PO SCH ×2 (08:51→21:29)
[2020-08-23] MEDS: LORATADINE 10 MG TAB PO SCH (08:52)
[2020-08-23] MEDS: BALSALAZIDE DISODIUM 750 MG CAPSULE PO SCH ×3 (08:52→21:36)
[2020-08-23] MEDS: FLUTICASONE 50MCG/SPRAY NASAL 16GM EA NOSTRIL SCH (08:52)
[2020-08-23 09:11] LABS: Anisocytosis Slight; Basophils % (A) 0 %; Eosinophils # (A) 0.2 k/uL (0-0.7); Eosinophils % (A) 4 %; HCT 39.4 % (34.0-46.0); HGB 13.5 gm/dL (11.4-16.0); Lymphocytes # (A) 0.5 k/uL (1.0-4.8); Lymphocytes % (A) 10 %; MCH 27.9 pg (25.0-35.0); MCHC 34.2 g/dL (31.0-37.0); MCV 81.4 fL (80.0-100.0); Mean Platelet Volume 8.2; Monocytes # (A) 0.1 k/uL (0-1.0); Monocytes % (A) 2 %; Neutrophils # (A) 4.2 k/uL (1.3-7.7); Neutrophils % (A) 83 %; Platelet Count 337 k/uL (150-450); RBC 4.84 m/uL (3.80-5.40); RDW 17.3 % (11.5-15.5)
--- NOTE | 2020-08-23 09:19 | P.PN ---
Subjective Progress Note Date: 08/23/20 Remains on BiPAP with oxygen requirement. No chest pain no abdominal pain sating 82% Objective - Vital Signs Vital signs: Vital Signs Temp 98 F 08/23/20 08:00 Pulse 102 H 08/23/20 08:00 Resp 22 08/23/20 08:00 BP 122/77 08/23/20 08:00 Pulse Ox 89 L 08/23/20 08:00 Intake & Output 08/22/20 08/23/20 08/23/20 18:59 06:59 18:59 Intake Total 849 20 0 Output Total 50 Balance 849 -30 0 Weight 62 kg 62.5 kg Intake: IV 20 20 Invasive Line 2 20 20 Oral [id number] Output: Stool 50 Other: Voiding Method Bedpan Diaper # Voids 3 0 # Bowel Movements 5 0 - Exam Gen: awake, alert on BiPAP, short of breath HEENT: normocephalic, atraumatic Resp: Decreased breath sounds, no wheezing CVS: S1S2 N no RMG GI: soft, NTTP, ND : no SPT, no CVAT MSK: no pitting edema, no clubbing Neuro: non-focal, moving all extremities - Labs CBC & Chem 7: 08/23/20 08:32 08/22/20 07:06 Labs: Abnormal Lab Results - Last 24 Hours (Table) 08/22/20 08/22/20 08/22/20 Range/Units 11:47 16:23 20:03 RDW (11.5-15.5) % Lymphocytes # (1.0-4.8) k/uL POC Glucose (mg/dL) 254 H 187 H 219 H (75-99) mg/dL 08/23/20 08/23/20 Range/Units 05:57 08:32 RDW 17.3 H (11.5-15.5) % Lymphocytes # 0.5 L (1.0-4.8) k/uL POC Glucose (mg/dL) 102 H (75-99) mg/dL Assessment and Plan Plan: acute hypoxic respiratory failure with ARDS: Continue Rocephin and Zithromax, dexamethasone oxygen and bronchodilators. Continue BiPAP. Appreciate pulmonology input. Clinically worse. COIVD pneumonia : Continue antibiotics history of colitis chronic mild anemia hyponatremia hypothyroid : Synthroid history of hypertension and hyperlipidemia Diabetes type 2 with hyperglycemia: Continue insulin sliding scale CODE STATUS: DNR DVT prophylaxis: Lovenox subcu daily Discussed with: Patient and RN Anticipated discharge place: Worsening clinical condition.
[2020-08-23 09:32] LABS: ALT 10 U/L (4-34); AST 35 U/L (14-36); African American GFR (CKD) >90 (>60 ml/min/1.73 sqM); Albumin 3.2 g/dL (3.5-5.0); Alkaline Phosphatase 81 U/L (38-126); Anion Gap 5 mmol/L; Blood Urea Nitrogen 10 mg/dL (7-17); C Reactive Protein 8.8 mg/L (<10.0); Calcium 8.5 mg/dL (8.4-10.2); Carbon Dioxide 32 mmol/L (22-30); Chloride 101 mmol/L (98-107); Glucose 127 mg/dL (74-99); LDH 1733 U/L (313-618); Non-African American GFR(CKD) >90 (>60 ml/min/1.73 sqM); Sodium 138 mmol/L (137-145); Total Bilirubin 0.6 mg/dL (0.2-1.3); Total Protein 6.8 g/dL (6.3-8.2)
[2020-08-23 11:48] LABS: Glucose,Whole Blood 263 mg/dL (75-99)
[2020-08-23] MEDS ORDERED: MORPHINE SULFATE 4 MG/ML SYRINGE IVP PRN (12:02)
--- NOTE | 2020-08-23 12:04 | P.PN ---
Subjective Progress Note Date: 08/23/20 This a very pleasant 69-year-old female patient who follows with Dr. Caro as her primary care provider. She has a history of hypertension, hyperlipidemia, hypothyroidism, diabetes mellitus. She had issues with shortness of breath, cough congestion. She tested positive for CoVID 19 on 08/04/2020. She states that's when her symptoms mainly started as well. Since that time the her shortness of breath has increased. She checked her pulse oximeter readings at home and was in the 60s. She came to the emergency room for the same. Chest x- ray does show bilateral patchy infiltrates consistent with CoVID 19 pneumonia. White count 4.3. Hemoglobin 11.3. D-dimer 0.8. Sodium 132. Potassium 4.5. Creatinine 0.49. LDH 1128. C-reactive protein 66. Pro-calcitonin 0.16. Gal[place] virus by PCR detected. She's been initiated on Decadron, Lovenox, vitamin supplements. The patient is seen today 08/17/2020 in follow-up on the selective care unit. She is currently resting in bed. Awake and alert in no acute distress. Feeling just a bit better today compared to yesterday. She is still requiring AirVo high flow oxygen at 60 L and 90% FiO2 to maintain O2 saturations in the 90s. 0.9 normal saline at [address] angiogram revealed no evidence of pulmonary embolism. There is moderately severe bilateral pneumonia, bilateral basilar atelectasis. Blood cultures reveal no growth. She did receive Tocilizumab. Continued on Lovenox, Decadron, vitamin supplements. The patient is seen today 08/18/2020 follow-up on the selective care unit. Currently resting fairly comfortably in bed. She was actually up on the commode briefly. She sat up at the side of the bed. Still quite dyspneic with minimal exertion. Still requiring AirVo high flow oxygen at 60 L and 90% FiO2 to mainta in O2 saturations in the low 90s. She's currently afebrile. Hemodynamically stable. Blood culture reveals no growth. D-dimer 0.97. LDH 1066. C-reactive protein 42.5. Blood glucose 211. She remains on vitamin supplements, dexamethasone, Lovenox. 0.9 normal saline at 100 ML's per hour. The patient is seen today 08/19/2020 follow-up on the selective care unit. She is currently lying in bed. Awake and alert in no acute distress. She was not tolerating the AirVo earlier today and is now requiring BiPAP at 100% FiO2 12/6 maintain O2 saturations in the 90s, currently 97%. Chest x-ray does reveal worsening bibasilar and peripheral right lung infiltrates. She has 0.9 normal saline at 50 MLS per hour. Blood cultures reveal no growth. Blood glucose 180. She remains on vitamin supplements, dexamethasone, Lovenox. The patient is seen today 08/20/2020 in follow-up on the selective care unit. She is currently sitting up in bed. Awake and alert in no acute distress. Feeling a bit stronger today. She is on BiPAP still at 12/6 and 90% FiO2 and maintaining O2 saturation in the 90s. She was off for lunch. Drinking Glucerna. Requiring less time to recover. She remains on Decadron, Lovenox, vitamin supplements. 0.9 normal satting at 100 ML's per hour. On 08/21/2020 on seeing the patient for a follow-up regarding her COVID 19 associated pneumonia. The patient is currently on a BiPAP pressure of 12/6 cm of water and FiO2 is being gradually weaned off. Note that the patient's presented to us and she was extremely hypoxic and she was initially placed on high flow oxygen and subsequently she failed and she was transitioned to BiPAP. During the course of the treatment, the patient was given Decadron, Lovenox, Tocilizumab , and a CT angiogram showed bilateral pneumonia without evidence of any pulmonary embolism. The patient currently is on Decadron 6 mg every 24 hours. The patient on Lovenox 40 mg subcu every 24 hours.. On her blood work today, the patient d-dimer of 2.8 with a CRP of 12 and a LDH of 1607. As such, after Vania markers are still quite elevated. Clinically, the patient is still on a BiPAP at the same settings. Her current FiO2 is at 80% and the patient is able to generate a tidal volume of 575 with a respiratory rate of 32. Her curre nt pulse ox is around 90 and her current minute ventilation is around Extina liters per minute. She is awake and alert. She is giving brief interruptions of the BiPAP to take some shakes. Taken and showed and she is also taking Glucerna. 08/22/2020, which is at the patient's condition decompensating. She is still on a BiPAP at a pressure of 12/6 and earlier this morning the patient some desat uration and she had been brought up to 100%. The patient is having some labored breathing even on the BiPAP. Her respiratory rates in the mid 40s and the patient is able to generate a tidal volume of 400. Her pulse ox is currently ranging between 85-88%. Heart rate is around 110-120. She is awake and alert and she is communicating. Nevertheless she is an obvious respiratory distress. She remains on Lovenox 40 mg subcu every 24 hours. She is also on Decadron 6 mg IV every 24 hours. IV fluids are running at the rate of 100 mL an hour. On her blood work, most of the labs are within normal limits.LDH level is up to 2076 and a CRP level is up to 10.6. D-dimer is also up to 3.83.. The chest x-ray from today is showing patchy bilateral pulmonary infiltrates on the left, definitely worse on the right with peripheral distribution. The right hemidiaphragm is being lost on today's chest x-ray. 08/23/2020 Mrs. Lewis is still struggling with her breathing. She is on a BiPAP at a pressure of 12/6 with an FiO2 of 100%. Her pulse ox is around 83-84% max. She is able to generate a tidal volume of 400. Respirations in the mid 30s and low 40s. I will say she is essentially the same as yesterday. She remains on Decadron 6 mg IV every 24 hours. She remains on Lovenox 40 mg subcu every 24 hours. Her work of breathing is high and she is using some accessory muscles of breathing and she desaturates easily when she does any talking or movement. I was told by the nursing staff that she earlier dropped down to 50%. On her Effexor from yesterday, the patient had diffuse bilateral pulmonary infiltrates more so on the right involving the lung periphery on the right. Also, blood work from today showing an elevated LDH level of 1733 and her CRP level was at 8.8. Her d-dimer is higher at 7.38. Objective - Vital Signs Vital signs: Vital Signs Temp 98 F 08/23/20 08:00 Pulse 102 H 08/23/20 08:00 Resp 22 08/23/20 08:00 BP 122/77 08/23/20 08:00 Pulse Ox 89 L 08/23/20 08:00 Intake & Output 08/22/20 08/23/20 08/23/20 18:59 06:59 18:59 Intake Total 849 20 10 Output Total 50 50 Balance 849 -30 -40 Weight 62 kg 62.5 kg Intake: IV 20 20 10 Invasive Line 2 20 20 10 Oral 829 0 Output: Stool 50 50 Other: Voiding Method Bedpan Bedpan Diaper Diaper # Voids 3 0 # Bowel Movements 5 0 - Exam GENERAL EXAM: Alert, pleasant 69-year-old female, on BiPAP 12/6 and 100% FiO2, in mild respiratory distress. HEAD: Normocephalic. EYES: Normal reaction of pupils, equal size. NOSE: Clear with pink turbinates. THROAT: No erythema or exudates. NECK: No masses, no JVD. CHEST: No chest wall deformity. LUNGS: Equal air entry with crackles in the bilateral bases CVS: S1 and S2 normal with no audible murmur, regular rhythm. ABDOMEN: No hepatosplenomegaly, normal bowel sounds, no guarding or rigidity. SPINE: No scoliosis or deformity SKIN: No rashes CENTRAL NERVOUS SYSTEM: No focal deficits, tone is normal in all 4 extremities. EXTREMITIES: There is no peripheral edema. No clubbing, no cyanosis. Peripheral pulses are intact. - Labs CBC & Chem 7: 08/23/20 08:32 08/23/20 08:32 Labs: Abnormal Lab Results - Last 24 Hours (Table) 08/22/20 08/22/20 08/23/20 Range/Units 16:23 20:03 05:57 RDW (11.5-15.5) % Lymphocytes # (1.0-4.8) k/uL D-Dimer (<0.60) mg/L FEU Carbon Dioxide (22-30) mmol/L Glucose (74-99) mg/dL POC Glucose (mg/dL) 187 H 219 H 102 H (75-99) mg/dL Lactate Dehydrogenase (313-618) U/L Albumin (3.5-5.0) g/dL 08/23/20 08/23/20 08/23/20 Range/Units 08:32 08:32 08:32 RDW 17.3 H (11.5-15.5) % Lymphocytes # 0.5 L (1.0-4.8) k/uL D-Dimer 7.39 H (<0.60) mg/L FEU Carbon Dioxide 32 H (22-30) mmol/L Glucose 127 H (74-99) mg/dL POC Glucose (mg/dL) (75-99) mg/dL Lactate Dehydrogenase 1733 H (313-618) U/L Albumin 3.2 L (3.5-5.0) g/dL 08/23/20 Range/Units 11:45 RDW (11.5-15.5) % Lymphocytes # (1.0-4.8) k/uL D-Dimer (<0.60) mg/L FEU Carbon Dioxide (22-30) mmol/L Glucose (74-99) mg/dL POC Glucose (mg/dL) 263 H (75-99) mg/dL Lactate Dehydrogenase (313-618) U/L Albumin (3.5-5.0) g/dL Assessment and Plan Plan: 1 Acute hypoxemic respiratory failure secondary to acute CoVID 19 pneumonia/pneumonitis. Received Tocilizumab. The patient is currently on Decadron. The patient on Lovenox for DVT prophylaxis. Inflammatory markers are quite elevated and the patient is currently on BiPAP. The patient. High flow and the patient has been transitioned to BiPAP therapy for respiratory support. Patient remains on a BiPAP of 12/6 with an FiO2 of 90%. Her oxidation remains borderline with a pulse ox of above 90% and order of 90-91% on the above- mentioned BiPAP setting. The chest x-ray from 08/19/2020 shows bilateral pulmonary infiltrates with peripheral distribution more so on the right. She is very much BiPAP dependent. The condition essentially unchanged compared to yesterday. D-dimer is higher. LDH is slightly lower on today's evaluation. Family is at the bedside. The patient is anxious and she's having feeling of breathlessness. She is quite weak. She is unable to eat. Pulse ox is dropping down to the low 50s with movement and activity. At rest, pulse ox is around 84- 85%. 2 Elevated inflammatory markers secondary to above 3 Osteoarthritis 4 Hypertension 5 Hyperlipidemia 6 Diabetes mellitus 7 Hypothyroidism, previous right thyroidectomy Plan: Continue same treatment Morphine for pain and shortness of breath Keep the BiPAP 12/6 and 100% FiO2 Titrate down the FiO2 as tolerated Continue dexamethasone, Lovenox, vitamin supplements Family decided DNR/DNI CODE STATUS We'll continue the supportive care and would evaluate her progress over the next 24 hours. Unfortunately, she is unable to eat and she is obviously behind undernutrition. She is progressively getting weak. May consider end-of-life care if there is any further worsening of the situation. Family is aware.
[2020-08-23] MEDS: MORPHINE SULFATE 2 MG/ML SYRINGE IVP PRN ×3 (12:17→23:25)
[2020-08-23] MEDS: SODIUM CHLORIDE 0.9% 1,000 ML IV SCH ×2 (12:18→21:31)
[2020-08-23 16:46] LABS: Glucose,Whole Blood 245 mg/dL (75-99)
[2020-08-23 20:00] LABS: Glucose,Whole Blood 176 mg/dL (75-99)
[2020-08-23] MEDS ORDERED: ENOXAPARIN 30 MG/0.3 ML SYRINGE SQ SCH (21:00)
[2020-08-23] MEDS: ATORVASTATIN 20 MG TAB PO SCH (21:29)
[2020-08-23 23:22] LABS: Glucose,Whole Blood 135 mg/dL (75-99)
[2020-08-24] MEDS: LORazepam 2 MG/ML INJ IV PRN ×2 (02:50→08:08)
[2020-08-24] MEDS: MORPHINE SULFATE 2 MG/ML SYRINGE IVP PRN ×2 (03:41→08:08)
[2020-08-24] MEDS: INSULIN ASPART (NovoLOG) 100 UNIT/ML VIAL SQ SCH (06:11)
[2020-08-24 06:12] LABS: Glucose,Whole Blood 115 mg/dL (75-99)
[2020-08-24] MEDS: SODIUM CHLORIDE 0.9% 1,000 ML IV SCH (06:12)
--- NOTE | 2020-08-24 11:42 | P.PN ---
Subjective Progress Note Date: 08/24/20 This a very pleasant 69-year-old female patient who follows with Dr. Caro as her primary care provider. She has a history of hypertension, hyperlipidemia, hypothyroidism, diabetes mellitus. She had issues with shortness of breath, cough congestion. She tested positive for CoVID 19 on 08/04/2020. She states that's when her symptoms mainly started as well. Since that time the her shortness of breath has increased. She checked her pulse oximeter readings at home and was in the 60s. She came to the emergency room for the same. Chest x- ray does show bilateral patchy infiltrates consistent with CoVID 19 pneumonia. White count 4.3. Hemoglobin 11.3. D-dimer 0.8. Sodium 132. Potassium 4.5. Creatinine 0.49. LDH 1128. C-reactive protein 66. Pro-calcitonin 0.16. [place] virus by PCR detected. She's been initiated on Decadron, Lovenox, vitamin supplements. The patient is seen today 08/17/2020 in follow-up on the selective care unit. She is currently resting in bed. Awake and alert in no acute distress. Feeling just a bit better today compared to yesterday. She is still requiring AirVo high flow oxygen at 60 L and 90% FiO2 to maintain O2 saturations in the 90s. 0.9 normal saline at [address] angiogram revealed no evidence of pulmonary embolism. There is moderately severe bilateral pneumonia, bilateral basilar atelectasis. Blood cultures reveal no growth. She did receive Tocilizumab. Continued on Lovenox, Decadron, vitamin supplements. The patient is seen today 08/18/2020 follow-up on the selective care unit. Currently resting fairly comfortably in bed. She was actually up on the commode briefly. She sat up at the side of the bed. Still quite dyspneic with minimal exertion. Still requiring AirVo high flow oxygen at 60 L and 90% FiO2 to mainta in O2 saturations in the low 90s. She's currently afebrile. Hemodynamically stable. Blood culture reveals no growth. D-dimer 0.97. LDH 1066. C-reactive protein 42.5. Blood glucose 211. She remains on vitamin supplements, dexamethasone, Lovenox. 0.9 normal saline at 100 ML's per hour. The patient is seen today 08/19/2020 follow-up on the selective care unit. She is currently lying in bed. Awake and alert in no acute distress. She was not tolerating the AirVo earlier today and is now requiring BiPAP at 100% FiO2 12/6 maintain O2 saturations in the 90s, currently 97%. Chest x-ray does reveal worsening bibasilar and peripheral right lung infiltrates. She has 0.9 normal saline at 50 MLS per hour. Blood cultures reveal no growth. Blood glucose 180. She remains on vitamin supplements, dexamethasone, Lovenox. The patient is seen today 08/20/2020 in follow-up on the selective care unit. She is currently sitting up in bed. Awake and alert in no acute distress. Feeling a bit stronger today. She is on BiPAP still at 12/6 and 90% FiO2 and maintaining O2 saturation in the 90s. She was off for lunch. Drinking Glucerna. Requiring less time to recover. She remains on Decadron, Lovenox, vitamin supplements. 0.9 normal satting at 100 ML's per hour. On 08/21/2020 on seeing the patient for a follow-up regarding her COVID 19 associated pneumonia. The patient is currently on a BiPAP pressure of 12/6 cm of water and FiO2 is being gradually weaned off. Note that the patient's presented to us and she was extremely hypoxic and she was initially placed on high flow oxygen and subsequently she failed and she was transitioned to BiPAP. During the course of the treatment, the patient was given Decadron, Lovenox, Tocilizumab , and a CT angiogram showed bilateral pneumonia without evidence of any pulmonary embolism. The patient currently is on Decadron 6 mg every 24 hours. The patient on Lovenox 40 mg subcu every 24 hours.. On her blood work today, the patient d-dimer of 2.8 with a CRP of 12 and a LDH of 1607. As such, after Vania markers are still quite elevated. Clinically, the patient is still on a BiPAP at the same settings. Her current FiO2 is at 80% and the patient is able to generate a tidal volume of 575 with a respiratory rate of 32. Her curre nt pulse ox is around 90 and her current minute ventilation is around Extina liters per minute. She is awake and alert. She is giving brief interruptions of the BiPAP to take some shakes. Taken and showed and she is also taking Glucerna. 08/22/2020, which is at the patient's condition decompensating. She is still on a BiPAP at a pressure of 12/6 and earlier this morning the patient some desat uration and she had been brought up to 100%. The patient is having some labored breathing even on the BiPAP. Her respiratory rates in the mid 40s and the patient is able to generate a tidal volume of 400. Her pulse ox is currently ranging between 85-88%. Heart rate is around 110-120. She is awake and alert and she is communicating. Nevertheless she is an obvious respiratory distress. She remains on Lovenox 40 mg subcu every 24 hours. She is also on Decadron 6 mg IV every 24 hours. IV fluids are running at the rate of 100 mL an hour. On her blood work, most of the labs are within normal limits.LDH level is up to 2076 and a CRP level is up to 10.6. D-dimer is also up to 3.83.. The chest x-ray from today is showing patchy bilateral pulmonary infiltrates on the left, definitely worse on the right with peripheral distribution. The right hemidiaphragm is being lost on today's chest x-ray. 08/23/2020 Mrs. Lewis is still struggling with her breathing. She is on a BiPAP at a pressure of 12/6 with an FiO2 of 100%. Her pulse ox is around 83-84% max. She is able to generate a tidal volume of 400. Respirations in the mid 30s and low 40s. I will say she is essentially the same as yesterday. She remains on Decadron 6 mg IV every 24 hours. She remains on Lovenox 40 mg subcu every 24 hours. Her work of breathing is high and she is using some accessory muscles of breathing and she desaturates easily when she does any talking or movement. I was told by the nursing staff that she earlier dropped down to 50%. On her Effexor from yesterday, the patient had diffuse bilateral pulmonary infiltrates more so on the right involving the lung periphery on the right. Also, blood work from today showing an elevated LDH level of 1733 and her CRP level was at 8.8. Her d-dimer is higher at 7.38. 08/24/2020, the patient was seen briefly, methadone the daughters at the bedside . The patient is doing very poor and she is still on a BiPAP at a pressure of 12/6 and FiO2 of 100%. Her current pulse ox is around 55%. She is unresponsive. She is quite comfortable. I talked about end-of-life care to the family and daughter WANTED to BiPAP for the time being as he felt that the BiPAP was make her more comfortable. As such, The treatment unchanged. Atelectatic discussion with them. I think is quite comfortable on the BiPAP. She'll probably within next few hours as the patient's progressively becoming more hypoxic. Objective - Vital Signs Vital signs: Vital Signs Temp 97.5 F L 08/24/20 04:00 Pulse 109 H 08/24/20 04:00 Resp 26 H 08/24/20 04:00 BP 115/77 08/24/20 04:00 Pulse Ox 76 L 08/24/20 04:00 Intake & Output 08/23/20 08/24/20 08/24/20 18:59 06:59 18:59 Intake Total 378 Output Total 100 Balance 278 Weight 62.5 kg Intake: IV 20 Invasive Line 2 20 Oral 358 Output: Stool 100 Other: Voiding Method Bedpan Diaper Diaper # Voids 1 1 # Bowel Movements 1 1 - Exam GENERAL EXAM: Alert, pleasant 69-year-old female, on BiPAP 12/6 and 100% FiO2, in mild respiratory distress. HEAD: Normocephalic. EYES: Normal reaction of pupils, equal size. NOSE: Clear with pink turbinates. THROAT: No erythema or exudates. NECK: No masses, no JVD. CHEST: No chest wall deformity. LUNGS: Equal air entry with crackles in the bilateral bases CVS: S1 and S2 normal with no audible murmur, regular rhythm. ABDOMEN: No hepatosplenomegaly, normal bowel sounds, no guarding or rigidity. SPINE: No scoliosis or deformity SKIN: No rashes CENTRAL NERVOUS SYSTEM: Unresponsive patient on BiPAP EXTREMITIES: There is no peripheral edema. No clubbing, no cyanosis. Peripheral pulses are intact. - Labs CBC & Chem 7: 08/23/20 08:32 08/23/20 08:32 Labs: Abnormal Lab Results - Last 24 Hours (Table) 08/23/20 08/23/20 08/23/20 Range/Units 11:45 16:43 19:58 POC Glucose (mg/dL) 263 H 245 H 176 H (75-99) mg/dL 08/23/20 08/24/20 Range/Units 23:21 06:10 POC Glucose (mg/dL) 135 H 115 H (75-99) mg/dL Assessment and Plan Plan: 1 Acute hypoxemic respiratory failure secondary to acute CoVID 19 pneumonia/pneumonitis. Received Tocilizumab. The patient is currently on Decadron. The patient on Lovenox for DVT prophylaxis. Inflammatory markers are quite elevated and the patient is currently on BiPAP. The patient. High flow and the patient has been transitioned to BiPAP therapy for respiratory support. Patient remains on a BiPAP of 12/6 with an FiO2 of 90%. The patient has decompensated and the patient is obvious respiratory failure and she is profoundly hypoxic.. While on the BiPAP mask of pressures of 12/6 with an FiO2 of 100%, pulse ox is around 55% and his condition is even worse compared to yesterday where the patient has become completely unresponsive while on the BiPAP. 2 Elevated inflammatory markers secondary to above 3 Osteoarthritis 4 Hypertension 5 Hyperlipidemia 6 Diabetes mellitus 7 Hypothyroidism, previous right thyroidectomy Plan: The patient will need end-of-life care. The family wanted to BiPAP on. I think she'll ultimately going to pass away while on BiPAP. Her pulse ox currently is around 55% on BiPAP of 12/6 with an FiO2 of 100%. Very poor prognosis. Discussed this with the family.
[2020-08-24 12:47] VITALS: BP 134/91; PULSE 126; RESP 32; TEMP 98.2
--- NOTE | 2020-08-24 13:06 | P.DS ---
Providers Date of admission: 08/15/20 20:48 Expected date of discharge: 08/24/20 Attending physician: Rachana Britt MD Consults: 08/15/20 20:47 Consult Physician Urgent Consulting Provider: Diego Mccabe Reason/Comments: Covid, Hypoxia Do you want consulting provider notified?: Yes Primary care physician: [facility] Course: HPI 69 year old female with history of colitis, hyperlipidemia , hypothyroid She was diagnosed with COVID about 10 days ago 08/04, she had positive contact with patients at a [employer] gathering, she lives alone, she does not know the health status of the people she has been in contact with who had COVID she manifested typical symptoms suggestive of COVID (body aches, fever, chills, SOB, sore throat, she has off on diarrhea from colitis with occasional blood). her PCP ordered some medrol dose pack to her which she took for about 6 days now, and she has been checking her oxygen level. today she was feeling worse, with SOB at rest , she found that her oxygen level has been below 90% for which she decided to come in for evaluation in the ED, she was found to be in the 70% on room air, she was started on oxygen and rapidly escalated to airvo to maintain oxygen sat above 90%. she feels anxious and concerned at this time. , she has not received vaccination. Hospital course and treatment: Patient was admitted to the hospital infection and acute hypoxic respiratory failure. She did receive Tocilizumab. Patient was treated with oxygen bronchodilators, BiPAP, dexamethasone vitamins and supportive care. She was ev aluated by pulmonology. Patient's condition did not improve and continued to gradually deteriorate requiring more oxygen and being. Patient was made DO NOT RESUSCITATE. She subsequently for 2020 at 1225 Diagnoses upon discharge: 1. Acute hypoxic respiratory failure 2. COVID-19 infection 3. Bilateral pneumonia secondary to Covid 4. Diabetes type 2 with hyperglycemia Patient Condition at Discharge: Undetermined Plan - Discharge Summary Discharge Rx Participant: Yes New Discharge Prescriptions: Discontinued Simvastatin 40 mg PO HS Metoprolol Tartrate 25 mg PO BID Ferrous Sulfate [Iron] 325 mg PO DAILY Fluticasone Nasal [place] [Flonase Nasal [place]] 1 spray EA NOSTRIL DAILY Glimepiride [Amaryl] 1 mg PO AC-SUPPER Mesalamine [Lialda] 4.8 gm PO DAILY Loratadine 10 mg PO DAILY Cholecalciferol [Vitamin D3 (25 Mcg = 1000 Iu)] 25 mcg PO DAILY predniSONE See Taper PO DIRECTED Pregabalin [Lyrica] 75 mg PO BID Ascorbic Acid [Vitamin C] 500 mg PO DAILY Adalimumab [Humira Pen] 40 mg SQ Q14D Levothyroxine Sodium [Synthroid] 88 mcg PO DAILY Dicyclomine HCl 20 mg PO TID PRN PRN Reason: Gi Upset Glimepiride [Amaryl] 2 mg PO [id number]-BRKFST Benzonatate [Tessalon Perles] 100 mg PO TID PRN PRN Reason: Cough Discharge Disposition: - Preliminary Cause of Preliminary Cause of : Acute hypoxic Respiratory failure /COVID-19
== END 2020-08-24 16:00 | disposition expired | DRG 177 ==
LOC: EC 17:12 → 3SCARD 20:48
PROVIDERS: ADMIT Internal Medicine; ATTEND Internal Medicine
PROC: 3E0333Z Introduction of Anti-inflammatory into Peripheral Vein, Percutaneous Approach (ICD-10-PCS; 2020-08-15)
PROC: XW033H5 Introduction of Tocilizumab into Peripheral Vein, Percutaneous Approach, New Technology Group 5 (ICD-10-PCS; principal; 2020-08-16)
PROC: 5A09557 Assistance with Respiratory Ventilation, Greater than 96 Consecutive Hours, Continuous Positive Airway Pressure (ICD-10-PCS; 2020-08-19)
DX: U07.1 COVID-19 (principal); J12.82 Pneumonia due to coronavirus disease 2019; J80 Acute respiratory distress syndrome; E87.1 Hypo-osmolality and hyponatremia; K50.90 Crohn's disease, unspecified, without complications; J44.0 Chronic obstructive pulmonary disease with (acute) lower respiratory infection; Z86.16 Personal history of COVID-19; Z51.5 Encounter for palliative care; Z66 Do not resuscitate; E11.65 Type 2 diabetes mellitus with hyperglycemia; I10 Essential (primary) hypertension; E78.5 Hyperlipidemia, unspecified; Z79.890 Hormone replacement therapy; Z87.891 Personal history of nicotine dependence; I95.9 Hypotension, unspecified; Z79.84 Long term (current) use of oral hypoglycemic drugs; D64.9 Anemia, unspecified; M19.90 Unspecified osteoarthritis, unspecified site; E89.0 Postprocedural hypothyroidism; Z87.19 Personal history of other diseases of the digestive system; Z90.710 Acquired absence of both cervix and uterus; Z79.899 Other long term (current) drug therapy; Z80.9 Family history of malignant neoplasm, unspecified
CPT/HCPCS: 36415; 71045; 71275; 80053; 82728; 83605; 83615; 83735; 84145; 85025; 85379; 85610; 85730; 86140; 87040; 87635; 93005; 94660; 94760; 96361; 96374; 99291